=== PATIENT | female | born 1995 | race African-American/Black ===

== ENCOUNTER 2023-08-11 14:09 | Inpatient (IN) ==
--- NOTE | 2023-08-11 14:48 | ED Triage Note ---
Date of Service August 11, 2023 Provider in Triage Author: Shaina Mcleod History of Present Illness This patient was briefly evaluated while in triage. An abbreviated physical exam was performed. This patient is a 28-year-old Female who presents to the ED for evaluation of constipation. Evaluated on 07/25 for rectal bleeding. Dx with internal hemorrhoids as well as COVID+ and UTI. On Augmentin for UTI. Notes persistent fever. Has not had BM in 4 days. Reports abd pain. Notes nausea, no vomiting. Physical Exam Constitutional: alert and oriented x3. no acute distress. febrile HEENT: normocephalic, atraumatic. normal conjunctiva.PERRLA. EOM's grossly intact. Respiratory: equal chest rise. normal respiratory effort, no accessory muscle use. Cardiovascular: tachycardic MSK: moves all 4 extremities spontaneously Psych:appropriate mood and affect. Initial orders for labs and / or imaging were placed and patient was placed in the waiting area until a bed is available. Please see further documentation for the full ED course.
[2023-08-11] MEDS ORDERED: SODIUM CHLORIDE 0.9% 1,000 ML IV ONE ×3 (17:01→22:09)
[2023-08-11] MEDS ORDERED: ACETAMINOPHEN 1,000 MG/100 ML VIAL IV STA (17:01)
[2023-08-11 17:17] LABS: Basophils # (auto) 0.06 K/uL (0.00-0.20); Basophils % (auto) 0.3 %; Hematocrit (blood only) 28.7 % (37.0-47.0); Hemoglobin 8.8 g/dl (12.0-16.0); Immature Granulocytes # (auto) 0.32 K/uL (0.01-0.20); Immature Granulocytes % (auto) 1.6 %; Lymphocytes # (auto) 2.21 K/uL (1.20-3.40); Lymphocytes % (auto) 10.9 %; Mean Corpuscular Hemoglobin 21.2 pg (25.0-34.0); Mean Corpuscular Hgb Conc 30.7 g/dL (32.0-36.0); Mean Corpuscular Volume 69.2 fL (80.0-100.0); Monocytes # (auto) 2.06 K/uL (0.11-0.59); Monocytes % (auto) 10.2 %; Neutrophils # (auto) 15.62 K/uL (1.40-6.50); RDW Coefficient of Variation 17.2 % (11.5-14.5); RDW Standard Deviation 42.6 fL (36.4-46.3); Red Blood Count 4.15 M/uL (4.20-5.40); White Blood Count 20.27 K/ul (4.8-10.8)
[2023-08-11] MEDS ORDERED: ONDANSETRON INJ 2 MG/ML 2 ML VIAL IV STA (17:30)
[2023-08-11] MEDS ORDERED: ONDANSETRON INJ 2 MG/ML 2 ML VIAL ONE (17:31)
[2023-08-11 17:33] LABS: Pregnancy Test, Serum Negative (Negative)
[2023-08-11 17:36] LABS: Albumin Level 3.9 gm/dl (3.4-5.0); BUN Creatinine Ratio 10.7 (10-20); Bilirubin,Total 0.5 mg/dl (0.2-1.0); Calcium 9.1 mg/dl (8.6-10.3); Creatinine Clr Calc Pharmacy 108.4 ml/min; Est GFR (African American) 126.6 ml/min; Est GFR (Non-African American) 109.2 ml/min; Globulin 3.9 gm/dl (2.5-4.0); Potassium 3.4 mmol/L (3.5-5.1); Total Protein 7.8 gm/dl (6.0-8.3)
[2023-08-11 17:39] LABS: Hypochromasia Present; Ovalocytes 1+; Platelet Count 466 K/uL (130-400); Rouleaux 1+
[2023-08-11] MEDS ORDERED: OPTIRAY 320 500ml IV ONE (17:57)
--- NOTE | 2023-08-11 18:32 | Emergency Department Note ---
Impression & Plan Abdominal pain ADMIT ED Provider Note HPI: History obtained from patient. The patient is a 28-year-old female who presents the emergency department with a chief complaint of abdominal pain, nausea, constipation. Patient states that she was diagnosed with COVID-19 this past . Patient states she was also placed on Augmentin for UTI with improvement in her urinary symptoms. Patient states that she was having severe constipation however on my assessment here in the ED patient states she just had a bowel movement that was loose and bloody in nature. Patient states she was also diagnosed with internal hemorrhoids recently. On arrival here to the ED the patient was noted to be tachycardic at 124, she is febrile at 38.3, she is saturating well on room air. Blood pressure stable. Patient is alert and conversational on my initial assessment, she otherwise appears to be in no acute distress. ROS: - Per HPI Differential Diagnosis: Lower GI bleed, acute appendicitis, acute colitis, hemorrhagic diarrhea with infectious pathogen, COVID-19 infection, urinary tract infection/sepsis, bacterial pneumonia/sepsis, amongst other potential pathologies. *Outpatient medications and allergy history reviewed. PE: General: Alert HEENT: Normocephalic, trachea midline Eyes: Extraocular eye movement is intact, no scleral erythema Pulmonary: Clear to auscultation bilaterally, no wheezing Cardio: Tachycardic rate with regular rhythm GI: Abdomen is soft to palpation, there is moderate tenderness in the lower abdomen to palpation without guarding or rigidity : No suprapubic tenderness MSK: No evidence of trauma or malformation of the extremities, no edema Skin: No evidence of rash Neuro: Alert, no focal deficits Psychiatric: Cooperative INDEPENDENT INTERPRETATIONS: shelter monitor: (As interpreted by myself): - An order was placed for continuous cardiac monitoring - Patient was noted to be in sinus tachycardia with a rate of 115 Chest x-ray: (As interpreted by myself): No acute disease Interventions provided in ED: -IV fluid bolus, IV morphine, IV Dilaudid, IV cefepime, IV Tylenol Medical Decision Making: IV was established and lab work obtained, patient was placed on color television console monitor. Lab work shows increasing leukocytosis today to 20.27, hemoglobin is 8.8 which is reduced from 9.57 days ago, platelet count is slightly elevated at 466, CMP shows a mild hyponatremia 134, potassium is 3.4, renal function is normal, lactic acid is normal, bilirubin is normal. AST is mildly elevated at 50, ALT is normal. Lipase is normal. Procalcitonin is low at 0.40. testing is negative. Urinalysis does not show any obvious evidence of infection, 2+ ketones and 3+ blood are noted. Urine nitrite is negative and urine leukocyte esterase is 1+. Will send for culture. There is evidence of contamination. CT imaging of the abdomen pelvis was ordered from triage and repeated from 1 week ago, this does show increasing right iliac and inguinal lymphadenopathy of undetermined origin, otherwise no acute abnormalities are seen per interpreting radiologist. Patient was reassessed and had continued and worsening abdominal pain therefore was given a dose of IV Dilaudid in addition to the morphine that she received earlier. Blood cultures were drawn here in the ED. Given the patient's increasing leukocytosis, unclear origin for abdominal pain with lymphadenopathy, she was started on IV cefepime for possible infection of unknown origin. She has recently tested positive for COVID-19 as well and this might be playing a role in some of her symptoms. In addition, patient states that she had an episode of blood per rectum with a loose bowel movement while here in the ED and her hemoglobin is lower than it was 7 days ago and this may require further investigation as well. Patient is in agreement for admission, [facility] hospitalist service was consulted for admission and the patient was placed for admission in stable condition Consultants/Discussions held with other healthcare providers: -Hospitalist, Dr. Zimmerman Disposition discussion held by myself with: -Patient Diagnosis: 1. Leukocytosis, acute 2. Fever, acute 3. Abdominal pain, acute 4. Ketonuria, acute 5. 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 Beliefs That Will Affect Care: None Current Living Situation: Other Current Living Situation Comment: lives with fiance Other Information That Helps Us Care for You: No Feels Safe at Home: Yes Safety Concerns: Feels Safe At This Time Assistive Devices: None Allergies Allergies Allergy/AdvReac Type Severity Reaction Status Date / Time metoclopramide [From Reglan] Allergy Severe TONGUE Verified 08/04/23 23:34 SWELLS, RESTLESSNESS tramadol AdvReac Intermediate COLD Verified 08/04/23 23:34 SWEATS, AGITATION, BLURRED VISION Home Meds Home Medications Medication Instructions Recorded Confirmed ergocalciferol (vitamin D2) 1,250 1,250 mcg PO WK 08/04/23 08/11/23 mcg (50,000 unit) capsule (Vitamin D2) folic acid 1 mg tablet 1 mg PO DAILY 08/04/23 08/11/23 methotrexate (PF) 15 mg/0.3 mL 15 mg subcut WK 08/04/23 08/11/23 subcutaneous auto-injector Previous Rx's Medication Instructions Recorded amoxicillin 875 mg-potassium 1 tab PO BID 10 days #20 tabs 08/05/23 clavulanate 125 mg tablet Results & Data (ED) Vital Signs Vital Signs - 24 hr 08/11/23 14:44 08/11/23 19:51 08/11/23 19:51 Temperature 38.3 C H Temperature Source Temporal Artery Scan Pulse Rate 124 H 112 H Pulse Rate [Apical] Pulse Rate from SpO2 Sensor Respiratory Rate 20 Respiratory Effort / Characteristics Non-Labored Spontaneous Respiratory Depth Normal Blood Pressure 108/63 124/75 Blood Pressure [Left Arm] Blood Pressure Mean 78 88 Blood Pressure Mean [Left Arm] Pulse Oximetry 99 Oxygen Delivery Method Room Air Sepsis Recent Fever Within 48 Hours No Sepsis New/Unexplained Change in Mental Status No Sepsis Action Taken by Nursing No Action Required 08/11/23 19:52 08/11/23 19:54 08/11/23 20:00 Temperature Temperature Source Pulse Rate 113 H 108 H Pulse Rate [Apical] 113 H Pulse Rate from SpO2 Sensor 107 H 109 H Respiratory Rate 24 20 29 H Respiratory Effort / Characteristics Respiratory Depth Blood Pressure Blood Pressure [Left Arm] 124/75 Blood Pressure Mean Blood Pressure Mean [Left Arm] 91 Pulse Oximetry 95 98 97 Oxygen Delivery Method Room Air Sepsis Recent Fever Within 48 Hours Sepsis New/Unexplained Change in Mental Status Sepsis Action Taken by Nursing 08/11/23 20:15 08/11/23 20:15 08/11/23 20:30 Temperature Temperature Source Pulse Rate 116 H Pulse Rate [Apical] Pulse Rate from SpO2 Sensor 127 H Respiratory Rate 25 H Respiratory Effort / Characteristics Respiratory Depth Blood Pressure 108/61 111/68 Blood Pressure [Left Arm] Blood Pressure Mean 72 86 Blood Pressure Mean [Left Arm] Pulse Oximetry 97 Oxygen Delivery Method Sepsis Recent Fever Within 48 Hours Sepsis New/Unexplained Change in Mental Status Sepsis Action Taken by Nursing 08/11/23 20:30 08/11/23 20:45 08/11/23 21:00 Temperature Temperature Source Pulse Rate 114 H 114 H 115 H Pulse Rate [Apical] Pulse Rate from SpO2 Sensor 114 H 111 H 114 H Respiratory Rate 18 18 15 Respiratory Effort / Characteristics Respiratory Depth Blood Pressure 104/58 L 110/54 L Blood Pressure [Left Arm] Blood Pressure Mean 73 72 Blood Pressure Mean [Left Arm] Pulse Oximetry 100 92 97 Oxygen Delivery Method Sepsis Recent Fever Within 48 Hours Sepsis New/Unexplained Change in Mental Status Sepsis Action Taken by Nursing 08/11/23 21:15 08/11/23 21:30 08/11/23 21:45 Temperature Temperature Source Pulse Rate 114 H 109 H Pulse Rate [Apical] Pulse Rate from SpO2 Sensor 114 H 110 H Respiratory Rate 19 21 Respiratory Effort / Characteristics Respiratory Depth Blood Pressure 99/54 L 99/52 L 88/56 L Blood Pressure [Left Arm] Blood Pressure Mean 69 67 74 Blood Pressure Mean [Left Arm] Pulse Oximetry 96 96 Oxygen Delivery Method Sepsis Recent Fever Within 48 Hours Sepsis New/Unexplained Change in Mental Status Sepsis Action Taken by Nursing 08/11/23 21:45 08/11/23 22:00 08/11/23 22:00 Temperature Temperature Source Pulse Rate 115 H 115 H Pulse Rate [Apical] Pulse Rate from SpO2 Sensor 113 H 116 H Respiratory Rate 26 H 19 Respiratory Effort / Characteristics Respiratory Depth Blood Pressure 112/66 Blood Pressure [Left Arm] Blood Pressure Mean 77 Blood Pressure Mean [Left Arm] Pulse Oximetry 99 98 Oxygen Delivery Method Sepsis Recent Fever Within 48 Hours Sepsis New/Unexplained Change in Mental Status Sepsis Action Taken by Nursing Laboratory Data 08/11/23 16:55 08/11/23 16:55 Lab Results 08/11/23 08/11/23 Range/Units 16:55 19:45 WBC 20.27 H (4.8-10.8) K/ul RBC 4.15 L (4.20-5.40) M/uL Hgb 8.8 L (12.0-16.0) g/dl Hct 28.7 L (37.0-47.0) % MCV 69.2 L (80.0-100.0) fL MCH 21.2 L (25.0-34.0) pg MCHC 30.7 L (32.0-36.0) g/dL RDW Std Deviation 42.6 (36.4-46.3) fL RDW Coeff of Erika 17.2 H (11.5-14.5) % Plt Count 466 H (130-400) K/uL MPV 10.0 (9.4-12.4) fL Immature Gran % (Auto) 1.6 % Neut % (Auto) 77.0 % Lymph % (Auto) 10.9 % Bertie % (Auto) 10.2 % Eos % (Auto) 0.0 % Baso % (Auto) 0.3 % Neut # (Auto) 15.62 H (1.40-6.50) K/uL Lymph # (Auto) 2.21 (1.20-3.40) K/uL Bertie # (Auto) 2.06 H (0.11-0.59) K/uL Eos # (Auto) 0.00 (0.00-0.50) K/uL Baso # (Auto) 0.06 (0.00-0.20) K/uL Immature Gran # (Auto) 0.32 H (0.01-0.20) K/uL Hypochromasia Present Ovalocytes 1+ Rouleaux 1+ Sodium 134 L (136-145) mmol/L Potassium 3.4 L (3.5-5.1) mmol/L Chloride 99 (98-107) mmol/L Carbon Dioxide 22 (21-32) mmol/L Anion Gap 13 H (3-11) BUN 8 (6-23) mg/dl Creatinine 0.75 (0.6-1.2) mg/dl Est Cr Clr Drug Dosing 108.4 ml/min Est GFR ( Amer) 126.6 ml/min Est GFR (Non-Af Amer) 109.2 ml/min BUN/Creatinine Ratio 10.7 (10-20) Glucose 91 (70-99(Fasting)) mg/dl Lactate 1.3 (0.4-2.0) mmol/L Calcium 9.1 (8.6-10.3) mg/dl Total Bilirubin 0.5 (0.2-1.0) mg/dl AST 50 H (13-39) U/L ALT 32 (7-52) U/L Alkaline Phosphatase 85 (34-104) U/L Total Protein 7.8 (6.0-8.3) gm/dl Albumin 3.9 (3.4-5.0) gm/dl Globulin 3.9 (2.5-4.0) gm/dl Albumin/Globulin Ratio 1.0 (0.9-2) Lipase 27 (11-82) U/L Procalcitonin 0.40 (0-0.5) ng/ml HCG, Qual Negative (Negative) Urine Color Yellow Urine Appearance Cloudy A (Clear) Urine pH 6.5 (4.5-7.5) Ur Specific [place] > 1.045 H (1.000-1.030) Urine Protein 1+ H (Negative) Urine Glucose (UA) Negative (Negative) Urine Ketones 2+ H (Negative) Urine Blood 3+ H (Negative) Urine Nitrite Negative (Negative) Urine Bilirubin Negative (Negative) Urine Urobilinogen Negative (Negative) Ur Leukocyte Esterase 1+ H (Negative) Urine WBC (Auto) >30 H (0-5) /hpf Urine RBC (Auto) >30 H (0-4) /hpf U Hyaline Cast (Auto) 0 (0-5) /lpf U Epithel Cells (Auto) >30 H (0-5) /lpf Urine Bacteria (Auto) Negative (Negative) Urine Yeast Not Reportable Administered Medications Pantoprazole Sodium 40 mg/ (Syringe) 10 mls @ 5 mls/min IV BID KALEB Stop: 09/10/23 22:14 Last Admin: 08/11/23 22:46 Dose: 5 mls/min Documented By: SONNY Sodium Chloride (Nss) 1,000 mls @ 125 mls/hr IV .Q8H KALEB Stop: 09/10/23 23:50 Last Admin: 08/11/23 23:59 Dose: 125 mls/hr Documented By: ANNABEL Discontinued Medications Hydromorphone HCl (Hydromorphone Inj 0.5 Mg/0.5 Ml Syr) 0.5 mg IV NOW STA Stop: 08/11/23 20:38 Last Admin: 08/11/23 20:53 Dose: 0.5 mg Documented By: SONNY Sodium Chloride (Nss) 1,000 mls @ 999 mls/hr IV .Q1H1M ONE Stop: 08/11/23 18:01 Last Infusion: 08/11/23 19:20 Dose: Infused Documented By: Admin: 08/11/23 17:25 Dose: 999 mls/hr Documented By: CORRIE Acetaminophen (Ofirmev) 1,000 mg in 100 mls @ 400 mls/hr IV NOW STA Stop: 08/11/23 17:15 Last Infusion: 08/11/23 18:54 Dose: Infused Documented By: CARLOS EDUARDO Admin: 08/11/23 17:26 Dose: 400 mls/hr Documented By: CORRIE Cefepime HCl (Maxipime) 2,000 mg in 20 mls @ 5 mls/min IV NOW STA; Protocol Stop: 08/11/23 20:55 Last Admin: 08/11/23 22:50 Dose: 5 mls/min Documented By: SONNY Sodium Chloride (Nss) 1,000 mls @ 999 mls/hr IV .Q1H1M ONE Stop: 08/11/23 21:57 Last Infusion: 08/11/23 23:55 Dose: Infused Documented By: Admin: 08/11/23 22:55 Dose: 999 mls/hr Documented By: SONNY Sodium Chloride (Nss) 500 mls @ 999 mls/hr IV .Q31M ONE Stop: 08/11/23 21:38 Last Infusion: 08/11/23 23:54 Dose: Infused Documented By: Admin: 08/11/23 22:55 Dose: 999 mls/hr Documented By: SONNY Potassium Chloride (K Guillaume / Wtr) 10 meq in 100 mls @ 100 mls/hr IV ONE ONE Stop: 08/11/23 22:40 Last Infusion: 08/11/23 23:56 Dose: Infused Documented By: Admin: 08/11/23 22:55 Dose: 100 mls/hr Documented By: SONNY Sodium Chloride (Nss) 1,000 mls @ 999 mls/hr IV .Q1H1M ONE Stop: 08/11/23 23:09 Last Admin: 08/11/23 22:56 Dose: Not Given Documented By: SONNY Ioversol (Optiray 320 500ml) 85 ml IV ONCE ONE Stop: 08/11/23 17:58 Last Admin: 08/11/23 17:58 Dose: 85 ml Documented By: VANI Morphine Sulfate (Morphine Sulfate 4 Mg/Ml 1 Ml Carp\Vial) 4 mg IV NOW STA Stop: 08/11/23 19:48 Last Admin: 08/11/23 19:51 Dose: 4 mg Documented By: RONEY Ondansetron HCl (Ondansetron Inj 2 Mg/Ml 2 Ml Vial) 4 mg IV NOW STA Stop: 08/11/23 17:31 Last Admin: 08/11/23 17:33 Dose: 4 mg Documented By: CORRIE Ondansetron HCl (Ondansetron Inj 2 Mg/Ml 2 Ml Vial) Confirm Administered Dose 4 mg .ROUTE .STK-MED ONE Stop: 08/11/23 17:32 Last Admin: 08/11/23 17:33 Dose: Not Given Documented By: CORRIE Imaging Data Radiologist's Impression: Abdomen/Pelvis CT 08/11/23 14:48 CT abd pelvis IV con only CLINICAL HISTORY: rectal pain, constipation, fever TECHNIQUE: Helical axial images of the abdomen and pelvis were obtained and displayed. Automated dose lowering techniques and/or adjustment according to patient size were utilized for this exam. This exam was performed with intravenous contrast. CT DOSE: 1008.61 mGy.cm COMPARISON: Comparison is made to CT head 08/05/2023 FINDINGS: Lower chest: No acute abnormality. Liver: Unremarkable. No focal lesions are seen. Gallbladder and biliary tree: No calcified gallstones. Normal caliber wall. No intra- or extrahepatic biliary ductal dilation. Pancreas: Unremarkable, no focal lesions. Spleen: Unremarkable. Adrenals: Unremarkable. Kidneys and ureters: Unremarkable. Bladder: Unremarkable. Reproductive organs: Unremarkable. Bowel: Unremarkable. Lymph nodes Retroperitoneal: Unremarkable. Pelvic: Unremarkable. Mesenteric: Enlarged right inguinal lymph nodes measure up to 19 mm in diameter. External iliac lymph nodes on the right measure up to 9 mm. Peritoneum: Normal. Vessels: Unremarkable. Abdominal wall: Unremarkable. Bones: Unremarkable. IMPRESSION: Right external iliac and inguinal lymphadenopathy is enlarged from prior exam, possibly representing infectious process. Follow-up to resolution is recommended to exclude malignancy. Otherwise no acute abnormalities are seen. ACT 112: Negative or not required by law. Electronically signed by: Kyle Crandall M.D. 08/11/2023 6:58 PM Chest X-Ray 08/11/23 18:32 XR chest 1V portable CLINICAL HISTORY: fever TECHNIQUE: Single frontal radiograph of the chest was obtained. Comparison: Comparison is made to chest radiograph 08/04/2023 FINDINGS: No lines and tubes are seen. The cardiomediastinal silhouette is normal. The lungs are clear. No evidence of pleural effusion or pneumothorax. IMPRESSION: No acute chest disease. ACT 112: Negative or not required by law. Electronically signed by: Kyle Crandall M.D. 08/11/2023 7:25 PM Discharge Plan Visit Data Chief Complaint: GI Assessment Stated Complaint: NO BM FOR 4 DAYS, ABD PAINS ED Provider: Jackson Tinoco Discharge Problem: Abdominal pain Patient Disposition: Admitted As Inpatient Discharge Problem: Abdominal pain Qualifiers: Abdominal location: unspecified location Qualified Code(s): R10.9 - Unspecified abdominal pain
--- NOTE | 2023-08-11 19:00 | CT Scan Report ---
CT abd pelvis IV con only CLINICAL HISTORY: rectal pain, constipation, fever TECHNIQUE: Helical axial images of the abdomen and pelvis were obtained and displayed. Automated dose lowering techniques and/or adjustment according to patient size were utilized for this exam. This e xam was performed with intravenous contrast. CT DOSE: 1008.61 mGy.cm COMPARISON: Comparison is made to CT head 08/05/2023 FINDINGS: Lower chest: No acute abnormality. Liver: Unremarkable. No focal lesions are seen. Gallbladder and biliary tree: No calcified gallstones. Normal caliber wall. No intra- or extrahepatic biliary ductal dilation. Pancreas: Unremarkable, no focal lesions. Spleen: Unremarkable. Adrenals: Unremarkable. Kidneys and ureters: Unremarkable. Bladder: Unremarkable. Reproductive organs: Unremarkable. Bowel: Unremarkable. Lymph nodes Retroperitoneal: Unremarkable. Pelvic: Unremarkable. Mesenteric: Enlarged right inguinal lymph nodes measure up to 19 mm in diameter. External iliac lymph nodes on the right measure up to 9 mm. Peritoneum: Normal. Vessels: Unremarkable. Abdominal wall: Unremarkable. Bones: Unremarkable. IMPRESSION: Right external iliac and inguinal lymphadenopathy is enlarged from prior exam, possibly representing infectious process. Follow-up to resolution is recommended to exclude malignancy. Otherwise no acute abnormalities are seen. ACT 112: Negative or not required by law. Electronically signed by: Kyle Crandall M.D. 08/11/2023 6:58 PM
--- NOTE | 2023-08-11 19:27 | XRay Report ---
XR chest 1V portable CLINICAL HISTORY: fever TECHNIQUE: Single frontal radiograph of the chest was obtained. Comparison: Comparison is made to chest radiograph 08/04/2023 FINDINGS: No lines and tubes are seen. The cardiomediastinal silhouette is normal. The lungs are clear. No evid ence of pleural effusion or pneumothorax. IMPRESSION: No acute chest disease. ACT 112: Negative or not required by law. Electronically signed by: Kyle Crandall M.D. 08/11/2023 7:25 PM
[2023-08-11] MEDS ORDERED: MoRPHine SULFATE 4 MG/ML 1 ML CARP\\VIAL IV STA (19:47)
[2023-08-11] MEDS ORDERED: HYDROmorphone INJ 0.5 MG/0.5 ML SYR IV STA (20:37)
[2023-08-11 20:46] LABS: Appearance Urine Cloudy (Clear); Bacteria Urine Automated Negative (Negative); Bilirubin Urine Negative (Negative); Blood Urine 3+ (Negative); Color Urine Yellow; Epithelial Cell Urine Auto >30 /lpf (0-5); Glucose Urine UA Negative (Negative); Ketones Urine 2+ (Negative); Leukocyte Esterase Urine 1+ (Negative); Nitrite Urine Negative (Negative); Protein Urine 1+ (Negative); RBC Urine Automated >30 /hpf (0-4); Specific Gravity Urine > 1.045 (1.000-1.030); Urobilinogen Urine Negative (Negative); WBC Urine Automated >30 /hpf (0-5); pH Urine 6.5 (4.5-7.5)
[2023-08-11] MEDS ORDERED: CEFEPIME 2,000 MG/20 ML VIAL IV STA (20:52)
[2023-08-11 21:04] LABS: Cast Urine Automated 0 /lpf (0-5)
[2023-08-11] MEDS ORDERED: SODIUM CHLORIDE 0.9% 500 ML IV ONE (21:08)
[2023-08-11] MEDS ORDERED: POTASSIUM CHLORIDE / WTR 10 MEQ/100 ML PLCT IV ONE (21:41)
--- NOTE | 2023-08-11 22:16 | History & Physical Report ---
Date of Service August 11, 2023 Assessment & Plan (1) Bright red rectal bleeding: Plan: 28 yo female with PMHx of kira's granulomatosis and hemorrhoids presents with rectal pain. #Fever #SIRS -1 wk persistent fever of unknown etiology despite being on augmentin. Met SIRS criteria on admission. WBC 20. Lactate wnl. ?Urosepsis. She has been dealing with UTI over the past month. CXR unremarkable. -UA appears infectious however without bacteria. Urine cx pending. -blood cx pending -stool studies pending -received dose of cefepime in ED. Will switch to zosyn. -IVF, tylenol, anti-emetics #Lower GI Bleed -2 episodes of bright red bloody diarrhea with pain in the last week. H/o hemorrhoids. -Hgb: 8.8 on admission - type and screen ordered -CT A/P: no obvious sites of bleeding -NPO, IVF, Protonix BID -GI consulted - may require colonoscopy #Constipation -fecal retention seen on CT per my read. Likely 2/2 hemorrhoids and could be adding to pain. -Likely will not tolerate [place] and is NPO. Will continue with IVF for now. #Lymphadenopathy -CT A/P: progressively enlarging R external iliac and inguinal lymphadenopathy - more likely reactive to underlying process -will need follow up imaging for resolution #Kira's Granulomatosis -chronically on methotrexate -unclear if symptoms above due to flare. Consider steroids. #COVID -tested positive 08/04/2023 -isolation precautions DVT ppx: SCDs, ambulation FEN/GI: NPO, IVF Code Status: full Dispo: PCU (2) Iliac lymphadenopathy: (3) Inguinal lymphadenopathy: (4) COVID-19: (5) UTI (urinary tract infection): (6) Fever: History of Present Illness Chief Complaint: rectal pain Primary Care Provider: [facility] 28 yo female with PMHx of kira's granulomatosis and hemorrhoids presents with rectal pain. 1 month ago patient presented to the ED with suspected UTI and was discharged on course of Omnicef. She states the antibiotic never fully resolved her symptoms and she returned to the ED 1 week ago with ongoing urinary symptoms and rectal pain. Rectal pain was presumed due to h/o hemorrhoids. She also incidentally tested positive for COVID. She was discharged on Augmentin to cover for possible ongoing UTI and/or other infectious etiology. Since then she has had ongoing fevers, chills, fatigue, nausea, suprapubic pain, rectal pain bright red bloody diarrhea x2. Denies dysuria or urinary frequency. She is in a monogamous relationship. Has never had colonoscopy performed. Allergies Allergy/AdvReac Type Severity Reaction Status Date / Time metoclopramide [From Reglan] Allergy Severe TONGUE Verified 08/04/23 23:34 SWELLS, RESTLESSNESS tramadol AdvReac Intermediate COLD Verified 08/04/23 23:34 SWEATS, AGITATION, BLURRED VISION Home Medications Medication Instructions Recorded Confirmed Type ergocalciferol (vitamin D2) 1,250 1,250 mcg PO WK 08/04/23 08/11/23 History mcg (50,000 unit) capsule (Vitamin D2) folic acid 1 mg tablet 1 mg PO DAILY 08/04/23 08/11/23 History methotrexate (PF) 15 mg/0.3 mL 15 mg subcut WK 08/04/23 08/11/23 History subcutaneous auto-injector amoxicillin 875 mg-potassium 1 tab PO BID 10 days #20 tabs 08/05/23 08/11/23 Rx clavulanate 125 mg tablet Past Med/Surg History Social History Smoking Status: Never smoker Second Hand Exposure: No; Do You Dip or Chew Tobacco: No; Tobacco Cessation Education Requested by Patient: No Hx Alcohol Use: Yes Alcohol type: hard liquor Hx Substance Use: No Preferred Language: Lithuanian Communication Ability: Effective [employer] Required: No Beliefs That Will Affect Care: None Current Living Situation: Other Current Living Situation Comment: lives with fiance Other Information That Helps Us Care for You: No Feels Safe at Home: Yes Safety Concerns: Feels Safe At This Time Assistive Devices: None Review of Systems Review of Systems: All systems reviewed & are unremarkable except as noted in HPI & below Physical Exam Physical Exam: Constitutional: moderate acute distress, pleasant. AOx3. Vitals as above. HEENT: No scleral injection or discharge.Dry mucous membranes. Neck: Supple without lymphadenopathy or thyromegaly. Trachea midline. Lungs: Clear to auscultation bilaterally with good effort. No wheezes/rales/rhonchi. Cardiac: Tachycardic. Regular rhythm. No murmurs. No lower extremity edema. 2+ distal peripheral pulses. Abdomen: Bowel sounds present. Soft and nondistended.Tender in lower quadrants R>L. No guarding. No hepatosplenomegaly. MSK: No cyanosis or clubbing. Skin: No rashes, warm, dry. Neurologic: no focal deficits Rectal: upon inspection +hemorrhoids without active bleeding, not thrombosed Results & Data Results & Data Vital Signs (Past 12 Hours) Vital Signs Temp Pulse Pulse Resp BP BP Pulse Ox 08/11/23 21:00 115 H 15 110/54 L 97 08/11/23 20:45 114 H 18 104/58 L 92 08/11/23 20:30 114 H 18 100 08/11/23 20:30 111/68 08/11/23 20:15 108/61 08/11/23 20:15 116 H 25 H 97 08/11/23 20:00 108 H 29 H 97 08/11/23 19:54 113 H 20 124/75 98 08/11/23 19:52 113 H 24 95 08/11/23 19:51 124/75 08/11/23 19:51 112 H 08/11/23 14:44 38.3 C H 124 H 20 108/63 99 O2 Del Method 08/11/23 21:00 08/11/23 20:45 08/11/23 20:30 08/11/23 20:30 08/11/23 20:15 08/11/23 20:15 08/11/23 20:00 08/11/23 19:54 Room Air 08/11/23 19:52 08/11/23 19:51 08/11/23 19:51 08/11/23 14:44 Room Air Laboratory Results Laboratory Results WBC 20.27 K/ul (4.8-10.8) H 08/11/23 16:55 RBC 4.15 M/uL (4.20-5.40) L 08/11/23 16:55 Hgb 8.8 g/dl (12.0-16.0) L 08/11/23 16:55 Hct 28.7 % (37.0-47.0) L 08/11/23 16:55 MCV 69.2 fL (80.0-100.0) L 08/11/23 16:55 MCH 21.2 pg (25.0-34.0) L 08/11/23 16:55 MCHC 30.7 g/dL (32.0-36.0) L 08/11/23 16:55 RDW Std Deviation 42.6 fL (36.4-46.3) 08/11/23 16:55 RDW Coeff of Erika 17.2 % (11.5-14.5) H 08/11/23 16:55 Plt Count 466 K/uL (130-400) H 08/11/23 16:55 MPV 10.0 fL (9.4-12.4) 08/11/23 16:55 Immature Gran % (Auto) 1.6 % 08/11/23 16:55 Neut % (Auto) 77.0 % 08/11/23 16:55 Lymph % (Auto) 10.9 % 08/11/23 16:55 [place]asper % (Auto) 10.2 % 08/11/23 16:55 Eos % (Auto) 0.0 % 08/11/23 16:55 Baso % (Auto) 0.3 % 08/11/23 16:55 Neut # (Auto) 15.62 K/uL (1.40-6.50) H 08/11/23 16:55 Lymph # (Auto) 2.21 K/uL (1.20-3.40) 08/11/23 16:55 [place]asper # (Auto) 2.06 K/uL (0.11-0.59) H 08/11/23 16:55 Eos # (Auto) 0.00 K/uL (0.00-0.50) 08/11/23 16:55 Baso # (Auto) 0.06 K/uL (0.00-0.20) 08/11/23 16:55 Immature Gran # (Auto) 0.32 K/uL (0.01-0.20) H 08/11/23 16:55 Hypochromasia Present 08/11/23 16:55 Ovalocytes 1+ 08/11/23 16:55 Rouleaux 1+ 08/11/23 16:55 Sodium 134 mmol/L (136-145) L 08/11/23 16:55 Potassium 3.4 mmol/L (3.5-5.1) L 08/11/23 16:55 Chloride 99 mmol/L (98-107) 08/11/23 16:55 Carbon Dioxide 22 mmol/L (21-32) 08/11/23 16:55 Anion Gap 13 (3-11) H 08/11/23 16:55 BUN 8 mg/dl (6-23) 08/11/23 16:55 Creatinine 0.75 mg/dl (0.6-1.2) 08/11/23 16:55 Est Cr Clr Drug Dosing 108.4 ml/min 08/11/23 16:55 Est GFR ( Amer) 126.6 ml/min 08/11/23 16:55 Est GFR (Non-Af Amer) 109.2 ml/min 08/11/23 16:55 BUN/Creatinine Ratio 10.7 (10-20) 08/11/23 16:55 Glucose 91 mg/dl (70-99(Fasting)) 08/11/23 16:55 Lactate 1.3 mmol/L (0.4-2.0) 08/11/23 16:55 Calcium 9.1 mg/dl (8.6-10.3) 08/11/23 16:55 Total Bilirubin 0.5 mg/dl (0.2-1.0) 08/11/23 16:55 AST 50 U/L (13-39) H 08/11/23 16:55 ALT 32 U/L (7-52) 08/11/23 16:55 Alkaline Phosphatase 85 U/L (34-104) 08/11/23 16:55 Total Protein 7.8 gm/dl (6.0-8.3) 08/11/23 16:55 Albumin 3.9 gm/dl (3.4-5.0) 08/11/23 16:55 Globulin 3.9 gm/dl (2.5-4.0) 08/11/23 16:55 Albumin/Globulin Ratio 1.0 (0.9-2) 08/11/23 16:55 Lipase 27 U/L (11-82) 08/11/23 16:55 Procalcitonin 0.40 ng/ml (0-0.5) 08/11/23 16:55 HCG, Qual Negative (Negative) 08/11/23 16:55 Urine Color Yellow 08/11/23 19:45 Urine Appearance Cloudy (Clear) A 08/11/23 19:45 Urine pH 6.5 (4.5-7.5) 08/11/23 19:45 Ur Specific [place] > 1.045 (1.000-1.030) H 08/11/23 19:45 Urine Protein 1+ (Negative) H 08/11/23 19:45 Urine Glucose (UA) Negative (Negative) 08/11/23 19:45 Urine Ketones 2+ (Negative) H 08/11/23 19:45 Urine Blood 3+ (Negative) H 08/11/23 19:45 Urine Nitrite Negative (Negative) 08/11/23 19:45 Urine Bilirubin Negative (Negative) 08/11/23 19:45 Urine Urobilinogen Negative (Negative) 08/11/23 19:45 Ur Leukocyte Esterase 1+ (Negative) H 08/11/23 19:45 Urine WBC (Auto) >30 /hpf (0-5) H 08/11/23 19:45 Urine RBC (Auto) >30 /hpf (0-4) H 08/11/23 19:45 U Hyaline Cast (Auto) 0 /lpf (0-5) 08/11/23 19:45 U Epithel Cells (Auto) >30 /lpf (0-5) H 08/11/23 19:45 Urine Bacteria (Auto) Negative (Negative) 08/11/23 19:45 Urine Yeast Not Reportable 08/11/23 19:45 Impressions Abdomen/Pelvis CT 08/11/23 14:48 CT abd pelvis IV con only CLINICAL HISTORY: rectal pain, constipation, fever TECHNIQUE: Helical axial images of the abdomen and pelvis were obtained and displayed. Automated dose lowering techniques and/or adjustment according to patient size were utilized for this exam. This exam was performed with intravenous contrast. CT DOSE: 1008.61 mGy.cm COMPARISON: Comparison is made to CT head 08/05/2023 FINDINGS: Lower chest: No acute abnormality. Liver: Unremarkable. No focal lesions are seen. Gallbladder and biliary tree: No calcified gallstones. Normal caliber wall. No intra- or extrahepatic biliary ductal dilation. Pancreas: Unremarkable, no focal lesions. Spleen: Unremarkable. Adrenals: Unremarkable. Kidneys and ureters: Unremarkable. Bladder: Unremarkable. Reproductive organs: Unremarkable. Bowel: Unremarkable. Lymph nodes Retroperitoneal: Unremarkable. Pelvic: Unremarkable. Mesenteric: Enlarged right inguinal lymph nodes measure up to 19 mm in diameter. External iliac lymph nodes on the right measure up to 9 mm. Peritoneum: Normal. Vessels: Unremarkable. Abdominal wall: Unremarkable. Bones: Unremarkable. IMPRESSION: Right external iliac and inguinal lymphadenopathy is enlarged from prior exam, possibly representing infectious process. Follow-up to resolution is recommended to exclude malignancy. Otherwise no acute abnormalities are seen. ACT 112: Negative or not required by law. Electronically signed by: Kyle Crandall M.D. 08/11/2023 6:58 PM Chest X-Ray 08/11/23 18:32 XR chest 1V portable CLINICAL HISTORY: fever TECHNIQUE: Single frontal radiograph of the chest was obtained. Comparison: Comparison is made to chest radiograph 08/04/2023 FINDINGS: No lines and tubes are seen. The cardiomediastinal silhouette is normal. The lungs are clear. No evidence of pleural effusion or pneumothorax. IMPRESSION: No acute chest disease. ACT 112: Negative or not required by law. Electronically signed by: Kyle Crandall M.D. 08/11/2023 7:25 PM Code Status & VTE Plan VTE Prophylaxis Plan VTE Prophylaxis will be ordered: Yes Supervising Physician Co-Signing Physician Notes Attending addendum: I have physically seen this patient, have supervised the medical residents activities, and agree with the H&P unless as otherwise noted. Assessment and Plan: Kira's granulomatosis/granulomatosis with polyangiitis- Immunosuppressed on methotrexate 15 mg subcu weekly Has developed fever/SIRS Given cefepime in the ED Admit on Zosyn 4.5 g IV every 8 hours Follow blood cultures, urine cultures and stool studies Lower GI bleed- Patient reports 2 episodes of bright red bloody painful diarrhea last week History of hemorrhoids noted Hemoglobin 8.8 on admission, with type and screen ordered and pending CT scan abdomen and pelvis with no acute issues N.p.o. Pantoprazole 40 mg IV twice daily IV fluids as noted Consult to gastroenterology Right external iliac and inguinal lymphadenopathy- Enlarged compared to previous She did have an E. coli UTI on 07/15/2023, for which she finished 7-day course of Augmentin Follow urine culture and sensitivity No suggestion of lower extremity infectious issue Remaining orders and notations as noted Resident Activity Tracking Resident Involvement: Resident Care Provided Care Provided: Adult Hospital Medicine (5) UTI (urinary tract infection) Hematuria presence: without hematuria Urinary tract infection type: acute cystitis Qualified Code(s): N30.00 - Acute cystitis without hematuria (6) Fever Encounter type: initial encounter
[2023-08-11] MEDS: PANTOprazole 40 MG in SYRINGE 0 ML IV SCH (22:46)
[2023-08-11] MEDS ORDERED: PIPERACILLIN/TAZOBACTAM 4.5 GM/100 ML BAG IV ONE (23:45)
[2023-08-11] MEDS: SODIUM CHLORIDE 0.9% 1,000 ML IV SCH (23:59)
[2023-08-12] MEDS: ACETAMINOPHEN 1,000 MG/100 ML VIAL IV PRN ×3 (01:56→20:07)
[2023-08-12] MEDS ORDERED: SODIUM CHLORIDE 0.9% 500 ML IV ONE (02:05)
[2023-08-12] MEDS ORDERED: HYDROmorphone INJ 0.5 MG/0.5 ML SYR IV STA (02:05)
[2023-08-12] MEDS: ONDANSETRON INJ 2 MG/ML 2 ML VIAL IV PRN ×3 (02:23→15:46)
[2023-08-12] MEDS ORDERED: KETOROLAC TROMETHAMINE 15 MG/ML VIAL IV ONE ×2 (02:32→08:20)
[2023-08-12 03:34] LABS: Adenovirus F 40/41 PCR Not Detected (NotDetected); Astrovirus PCR Not Detected (NotDetected); Campylobacter PCR Not Detected (NotDetected); Cryptosporidium PCR Not Detected (NotDetected); Cyclospora cayetanensis PCR Not Detected (NotDetected); Entamoeba histolytica PCR Not Detected (NotDetected); Enteroaggregative E.coli(EAEC) Not Detected (NotDetected); Enteropathogenic E.coli (EPEC) Not Detected (NotDetected); Enterotoxigenic E.coli (ETEC) Not Detected (NotDetected); Giardia lamblia PCR Not Detected (NotDetected); Norovirus GI/GII PCR Not Detected (NotDetected); Plesiomonas shigelloides PCR Not Detected (NotDetected); Rotavirus A PCR Not Detected (NotDetected); Salmonella PCR Not Detected (NotDetected); Sapovirus PCR Not Detected (NotDetected); Shiga-like Toxin E.coli (STEC) Not Detected (NotDetected); Shigella/Enteroinvasive E.coli Not Detected (NotDetected); Vibrio cholerae PCR Not Detected (NotDetected); Vibrio species PCR Not Detected (NotDetected); Yersinia enterocolitica PCR Not Detected (NotDetected)
[2023-08-12 03:46] LABS: Cdiff Toxin B Gene (2yr or >) Positive Cdiff Gene (Neg)
[2023-08-12 03:52] LABS: Cdiff Antigen Positive; Cdiff Toxin A+B Positive Cdiff Toxin (Negative)
--- NOTE | 2023-08-12 04:48 | Communication Note ---
Date of Service: August 12, 2023 Pt's c diff testing came back positive (gene and toxin). Oral vancomycin treated initiated with 125mg q6hr. Zosyn discontinued. Contact precautions ordered.
[2023-08-12] MEDS ORDERED: PIPERACILLIN/TAZOBACTAM 4.5 GM in DEXTROSE 5% MINI-B 100 ML IV SCH (06:00)
[2023-08-12] MEDS: VANCOMYCIN HCL 250 MG/5 ML SOLN PO SCH ×3 (06:16→18:29)
[2023-08-12] MEDS: CHERRY SYRUP 5 ML UDP PO SCH ×3 (06:16→18:29)
[2023-08-12 07:22] LABS: Calcium 8.2 mg/dl (8.6-10.3); Magnesium 1.8 mg/dl (1.7-2.4)
[2023-08-12 07:27] LABS: BUN Creatinine Ratio 8.2 (10-20); Creatinine Clr Calc Pharmacy 113.4 ml/min; Est GFR (African American) 130.8 ml/min; Est GFR (Non-African American) 112.9 ml/min
[2023-08-12 07:34] LABS: Hematocrit (blood only) 26.6 % (37.0-47.0); Hemoglobin 8.1 g/dl (12.0-16.0); Mean Corpuscular Hemoglobin 21.3 pg (25.0-34.0); Mean Corpuscular Hgb Conc 30.5 g/dL (32.0-36.0); Mean Platelet Volume 11.7 fL (9.4-12.4); Platelet Count 342 K/uL (130-400); RDW Coefficient of Variation 17.9 % (11.5-14.5); RDW Standard Deviation 45.1 fL (36.4-46.3)
[2023-08-12 07:49] LABS: White Blood Count 31.15 K/ul (4.8-10.8)
[2023-08-12 07:51] LABS: Basophils # (auto) 0.07 K/uL (0.00-0.20); Basophils % (auto) 0.2 %; Dohle Bodies 1+; Hypochromasia Present; Immature Granulocytes # (auto) 0.33 K/uL (0.01-0.20); Immature Granulocytes % (auto) 1.1 %; Lymphocytes # (auto) 1.56 K/uL (1.20-3.40); Microcytosis Present; Monocytes # (auto) 2.87 K/uL (0.11-0.59); Monocytes % (auto) 9.2 %; Neutrophils # (auto) 26.32 K/uL (1.40-6.50); Neutrophils % (auto) 84.5 %; Polychromasia 1+; Tear Drop Cells 1+
[2023-08-12] MEDS ORDERED: KETOROLAC TROMETHAMINE 15 MG/ML VIAL ONE (08:27)
[2023-08-12] MEDS: SODIUM CHLORIDE 0.9% 1,000 ML IV SCH ×2 (08:44→17:34)
--- NOTE | 2023-08-12 09:56 | Communication Note ---
Date of Service: August 12, 2023 Patient is a 28 year old female with a past medical history of corinna's granulomatosis who GI was asked to see for GI bleeding. One month ago the patien lele presented to the ED with suspected UTI and was discharged with a course of Omnicef. Reportedly, the antibiotic never fully resolved her symptoms and she returned to the ED 1 week ago with ongoing urinary symptoms and rectal pain. Rectal pain was presumed to be hemorrhoidal in nature. She also incidentally tested positive for COVID. At that time she was discharged on Augmentin to cover for possible ongoing UTI or other etiology. Since then she has had continued fevers, chills, fatigue, nausea, suprapubic pain, with rectal pain and bright red bloody diarrhea x2. Since admission she has tested positive for C diff that likely has arisen from recent antibiotic use - she has since been started on vanco. She had CT suggestive of lymphadenopathy but bowel was otherwise unremarkable. I had discussed this case with Dr. Palacios who advised on plan. Suspect her symptoms are compounded from covid and c diff infection. - Recommend continuation of vancomycin 125mg QID for at least 14 days. - would also recommend an outpatient colonoscopy for further evaluation once her c diff has resolved.
--- NOTE | 2023-08-12 11:26 | Hospitalist Progress Note ---
Date of Service August 12, 2023 Assessment & Plan (1) Bright red rectal bleeding: Plan: 28 yo female with PMHx of corinna's granulomatosis and hemorrhoids presents with rectal pain. Clostridium difficile infection -SIRS positive on admission with febrile illness and leukocytosis -BCx pending -GI PCR negative except for C difficile -Received cefepime + Zosyn in ER, discontinued after positive test and now on oral vancomycin -IVF, Tylenol and Toradol PRN pain, anti-emetics Acute hematochezia -2 episodes of bright red bloody diarrhea with pain in the last week, known h/o hemorrhoids. -Hgb: 8.8 on admission now to 8.2 -CT A/P: no obvious sites of bleeding -NPO, IVF, Protonix BID -GI consulted - may require colonoscopy -We will recheck CBC in afternoon Leukocytosis -Marked leukocytosis increase from 20 to 31 today -Does appear to have leftward shift with neutrophils -Likely due to C difficile infection though this may also be secondary to COVID -Repeat CBC in afternoon -Continue oral vancomycin as above Urinary tract infection -Has had ongoing UTI over past month though symptoms have now resolved -UA on admission appearing grossly infected, culture pending -Deferring additional abx for now Constipation -Occurring leading up to admission, now resolved -Continue IVF, supportive care -Holding further laxatives/stool softeners with active C difficile diarrhea Abdominal lymphadenopathy -CT A/P: progressively enlarging R external iliac and inguinal lymphadenopathy - more likely reactive to underlying process -Repeat CT in 3-6 months as outpatient Corinna's Granulomatosis -Chronically on methotrexate -Likely not in acute flare COVID -Tested positive 08/04/2023 -Isolation precautions -Deferring further management given stable respiratory status DVT ppx: SCDs, ambulation FEN/GI: NPO, IVF Code Status: full Dispo: PCU (2) Iliac lymphadenopathy: (3) Inguinal lymphadenopathy: (4) COVID-19: (5) UTI (urinary tract infection): (6) Fever: Admission and Anticipated Discharge Date Admission Date: August 11, 2023 Supervising Physician Co-Signing Physician Notes ATTESTATION I also saw the patient and confirmed marrero portions of the history and exam. I agree with the impression and plan in the resident documentation, and as summarized below. Upon our late morning exam, the patient was feeling little bit better. She was semireclined in bed; fianc at bedside. EXAM 114/74, 92, 16, 36.4, high percent on room air Pleasant alert. No acute distress appreciated. Heart regular rate and rhythm. Lungs clear with nonlabored respirations Abdomen with tenderness, lower quadrants, no rebound or guarding DATA Labs White blood cell count 23.63, hemoglobin 8.3, platelet count 371 Sodium 138, potassium 4.0, BUN 6, creatinine 0.73 Imaging Chest x-ray showed no acute disease CT scan abdomen pelvis on 08/11/2023 shows right external iliac and inguinal lymphadenopathy. Micro C. difficile gene/toxin positive COVID-positive Urine culture collected 08/11/2023 shows pinpoint pulmonary growth Blood cultures collected 08/11/2023 are pending IMPRESSION & PLAN C. difficile infection COVID 19 infection History of granulomatosis with polyangiitis, maintained on methotrexate Oral vancomycin for the C. difficile infection GI consult appreciated Really seems to be minimally symptomatic in terms of COVID-19; she tells me today that she would not thought she had COVID; it is really the GI symptoms which brought her to the hospital. Certainly it may be compounding her symptoms, could be partially responsible for her leukocytosis. Was given dose of cefepime in the emergency department; it has not been resumed given the C. difficile infection Blood cultures are pending; will follow to completion Methotrexate on hold for now given active infection I discussed precautions with the patient's fianc to limit spread of home Additional per resident documentation Subjective Acute events overnight- one episode of watery diarrhea. Pt examined at bedside. Reported abdominal cramping and nausea, no new complaints. Examined a few hours later during rounds after receiving Toradol, stated she felt much better. Review of Systems Review of Systems: Per HPI/Subjective Physical Exam Physical Exam: Constitutional: no acute distress, pleasant HEENT: No scleral injection or discharge.Mildly dry mucous membranes. Neck: Supple without lymphadenopathy or thyromegaly. Trachea midline. Lungs: Clear to auscultation bilaterally with good effort. No wheezes/rales/rhonchi. Cardiac: Tachycardic. Regular rhythm. No murmurs. No lower extremity edema. 2+ distal peripheral pulses. Abdomen: Bowel sounds present. Soft and nondistended.Mildly tender in lower quadrants, greatest in center. No guarding. No hepatosplenomegaly. MSK: No cyanosis or clubbing. Skin: No rashes, warm, dry Results & Data Results & Data Vital Signs (Past 12 Hours) Vital Signs Temp Pulse Resp BP Pulse Ox O2 Del Method 08/12/23 08:07 36.6 C 95 H 18 107/72 98 Room Air 08/12/23 02:51 37.4 C 99 H 92/53 L 08/12/23 02:04 38.8 C H 112 H 18 95/61 L 98 Room Air 08/12/23 00:00 39.2 C H 121 H 18 104/61 99 Room Air Resident Activity Tracking Resident Involvement: Resident Care Provided Care Provided: Adult Hospital Medicine (5) UTI (urinary tract infection) Hematuria presence: without hematuria Urinary tract infection type: acute cystitis Qualified Code(s): N30.00 - Acute cystitis without hematuria (6) Fever Encounter type: initial encounter
[2023-08-12] MEDS: PANTOprazole 40 MG in SYRINGE 0 ML IV SCH ×2 (11:31→21:43)
[2023-08-12 13:24] LABS: Chlam trach RNA(Genit,Ureth,Ur Not Detected (NotDetected); GC(Neis gon)RNA(Genit,Ureth,Ur Not Detected (NotDetected)
[2023-08-12 15:32] LABS: Hematocrit (blood only) 27.3 % (37.0-47.0); Hemoglobin 8.3 g/dl (12.0-16.0); Mean Corpuscular Hemoglobin 21.2 pg (25.0-34.0); Mean Corpuscular Hgb Conc 30.4 g/dL (32.0-36.0); Mean Corpuscular Volume 69.8 fL (80.0-100.0); RDW Coefficient of Variation 17.9 % (11.5-14.5); RDW Standard Deviation 44.7 fL (36.4-46.3); Red Blood Count 3.91 M/uL (4.20-5.40); White Blood Count 23.63 K/ul (4.8-10.8)
[2023-08-12 15:51] LABS: Basophils # (auto) 0.05 K/uL (0.00-0.20); Basophils % (auto) 0.2 %; Eosinophils # (auto) 0.06 K/uL (0.00-0.50); Eosinophils % (auto) 0.3 %; Immature Granulocytes # (auto) 0.16 K/uL (0.01-0.20); Immature Granulocytes % (auto) 0.7 %; Lymphocytes # (auto) 1.75 K/uL (1.20-3.40); Lymphocytes % (auto) 7.4 %; Mean Platelet Volume 10.6 fL (9.4-12.4); Microcytosis Present; Monocytes # (auto) 2.13 K/uL (0.11-0.59); Neutrophils # (auto) 19.48 K/uL (1.40-6.50); Neutrophils % (auto) 82.4 %; Platelet Count 371 K/uL (130-400); Poikilocytosis Present; Polychromasia 1+
[2023-08-12] MEDS: KETOROLAC TROMETHAMINE 15 MG/ML VIAL IV PRN (17:34)
--- NOTE | 2023-08-12 19:30 | Billing Data ---
Date of Service August 12, 2023 Coding Level of Care Code 85576 INT INP/OBS CARE
[2023-08-13] MEDS: CHERRY SYRUP 5 ML UDP PO SCH ×4 (00:50→19:41)
[2023-08-13] MEDS: SODIUM CHLORIDE 0.9% 1,000 ML IV SCH ×3 (00:50→19:42)
[2023-08-13] MEDS: VANCOMYCIN HCL 250 MG/5 ML SOLN PO SCH ×4 (00:50→18:00)
[2023-08-13] MEDS: ONDANSETRON INJ 2 MG/ML 2 ML VIAL IV PRN ×3 (01:03→15:04)
[2023-08-13] MEDS: KETOROLAC TROMETHAMINE 15 MG/ML VIAL IV PRN ×4 (01:04→15:04)
[2023-08-13] MEDS: ACETAMINOPHEN 1,000 MG/100 ML VIAL IV PRN ×2 (06:19→18:40)
[2023-08-13 07:33] LABS: Basophils # (auto) 0.05 K/uL (0.00-0.20); Basophils % (auto) 0.2 %; Eosinophils # (auto) 0.19 K/uL (0.00-0.50); Eosinophils % (auto) 0.8 %; Hematocrit (blood only) 25.8 % (37.0-47.0); Hemoglobin 7.7 g/dl (12.0-16.0); Immature Granulocytes # (auto) 0.42 K/uL (0.01-0.20); Immature Granulocytes % (auto) 1.7 %; Lymphocytes # (auto) 2.09 K/uL (1.20-3.40); Lymphocytes % (auto) 8.6 %; Mean Corpuscular Hemoglobin 21.2 pg (25.0-34.0); Mean Corpuscular Hgb Conc 29.8 g/dL (32.0-36.0); Mean Corpuscular Volume 70.9 fL (80.0-100.0); Mean Platelet Volume 10.1 fL (9.4-12.4); Monocytes # (auto) 1.75 K/uL (0.11-0.59); Monocytes % (auto) 7.2 %; Neutrophils # (auto) 19.89 K/uL (1.40-6.50); Neutrophils % (auto) 81.5 %; Platelet Count 394 K/uL (130-400); RDW Coefficient of Variation 17.9 % (11.5-14.5); Red Blood Count 3.64 M/uL (4.20-5.40); White Blood Count 24.39 K/ul (4.8-10.8)
[2023-08-13 07:58] LABS: Microcytosis Present; Poikilocytosis Present; Polychromasia 2+
[2023-08-13 08:16] LABS: Albumin Globulin Ratio 1.1 (0.9-2); Albumin Level 3.1 gm/dl (3.4-5.0); BUN Creatinine Ratio 9.4 (10-20); Bilirubin,Total 0.3 mg/dl (0.2-1.0); Calcium 8.5 mg/dl (8.6-10.3); Creatinine Clr Calc Pharmacy 131.3 ml/min; Est GFR (African American) 141.7 ml/min; Est GFR (Non-African American) 122.3 ml/min; Globulin 2.8 gm/dl (2.5-4.0); Potassium 3.7 mmol/L (3.5-5.1); Total Protein 5.9 gm/dl (6.0-8.3)
[2023-08-13] MEDS: PANTOprazole 40 MG in SYRINGE 0 ML IV SCH ×2 (09:09→21:12)
--- NOTE | 2023-08-13 10:40 | Hospitalist Progress Note ---
Date of Service August 13, 2023 Assessment & Plan (1) Bright red rectal bleeding: Plan: 28 yo female with PMHx of corinna's granulomatosis and hemorrhoids presents with rectal pain. #Clostridium difficile infection -SIRS positive on admission with febrile illness and leukocytosis -BCx NGTD -GI PCR negative except for C difficile -Received cefepime + Zosyn in ER, discontinued after positive test and now on oral vancomycin -IVF, Tylenol and Toradol PRN pain, anti-emetics #Acute hematochezia -2 episodes of bright red bloody diarrhea with pain in the last week, known h/o hemorrhoids. -Hgb: 8.8 on admission now to 7.7. Monitor closely, asymptomatic from anemia standpoint -CT A/P: no obvious sites of bleeding -IVF, Protonix BID -GI consulted -treat C. diff infection -outpatient colonoscopy once infection resolved #Leukocytosis -Marked leukocytosis, stable -Likely due to C difficile infection though this may also be secondary to COVID #Urinary tract infection -Has had ongoing UTI over past month though symptoms have now resolved -UA on admission appearing grossly infected, culture pending -Deferring additional abx for now #Constipation -Continue IVF, supportive care -Holding further laxatives/stool softeners with active C difficile diarrhea #Abdominal lymphadenopathy -CT A/P: progressively enlarging R external iliac and inguinal lymphadenopathy - more likely reactive to underlying process -Repeat CT in 3-6 months as outpatient #Corinna's Granulomatosis -Chronically on methotrexate -Likely not in acute flare #COVID -Tested positive 08/04/2023 -Isolation precautions -Deferring further management given stable respiratory status DVT ppx: SCDs, ambulation FEN/GI: regular Code Status: full Dispo: downgrade to [place] (2) Iliac lymphadenopathy: (3) Inguinal lymphadenopathy: (4) COVID-19: (5) UTI (urinary tract infection): (6) Fever: Admission and Anticipated Discharge Date Admission Date: August 11, 2023 Supervising Physician Co-Signing Physician Notes ATTESTATION I also saw the patient and confirmed marrero portions of the history and exam. I agree with the impression and plan in the resident documentation, and as summarized below. Patient is seated in bed; she is smiling, she looks markedly improved compared to yesterday. She notes that she is feeling better. She recalls one episode of dyspnea yesterday, but none today. She been able to the bathroom. EXAM 117/76, 89, 18, 36.7, 99% on room air Pleasant alert. No acute distress appreciated. Heart regular rate and rhythm. Lungs clear with nonlabored respirations; she talks in full and complete sentences without pause; no coughing Abdomen with tenderness, lower quadrants, no rebound or guarding DATA Labs White blood cell count 24.39, yesterday 23.63; 31.15 upon admission Hemoglobin 7.7, down from 8.3 yesterday; 8.1 upon admission; indices are microcytic, hypochromic; positive poikilocytosis, microcytosis Sodium 140, potassium 3.7, BUN 6, creatinine 0.64 Imaging Chest x-ray showed no acute disease CT scan abdomen pelvis on 08/11/2023 shows right external iliac and inguinal lymphadenopathy. Micro Urine culture collected 08/11/2023 shows normal tammy Blood cultures collected 08/11/2023 showed no growth at 24 hours IMPRESSION & PLAN C. difficile infection Continue oral vancomycin GI consult appreciated COVID 19 infection Minimally symptomatic, though could be contributing to her leukocytosis and overall condition/fatigue Leukocytosis Persistent; most likely related to C. 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 Given the poikilocytosis, will check peripheral smear Given microcytosis, will check iron studies Additional per resident documentation Subjective Patient seen at bedside. Rectal pain 8/10 which is improved from previous. Still having bloody diarrhea. Denies cp, sob, N/V. No urinary symptoms. Review of Systems Review of Systems: All systems reviewed & are unremarkable except as noted in HPI & below Physical Exam Physical Exam: Constitutional: in no acute distress, pleasant. AOx3. Vitals as above. HEENT: No scleral injection or discharge.Moist mucous membranes. Neck: Supple without lymphadenopathy or thyromegaly. Trachea midline. Lungs: Clear to auscultation bilaterally with good effort. No wheezes/rales/rhonchi. Cardiac: RRR. No murmurs. No lower extremity edema. 2+ distal peripheral pulses. Abdomen: +BS. Soft and nondistended.Tender in lower quadrants R>L. No guarding. No hepatosplenomegaly. MSK: No cyanosis or clubbing. Skin: No rashes, warm, dry. Neurologic: no focal deficits Results & Data Results & Data Vital Signs (Past 12 Hours) Vital Signs Temp Pulse Resp BP Pulse Ox O2 Del Method 08/13/23 06:14 36.7 C 89 18 117/76 99 Room Air 08/13/23 04:30 36.7 C 78 18 99/67 L 98 Room Air 08/12/23 23:01 36.7 C 78 20 96/61 L 98 Room Air Laboratory Results 08/13/23 08/12/23 08/11/23 Range/Units 07:14 14:58 19:45 WBC 24.39 H 23.63 H (4.8-10.8) K/ul RBC 3.64 L 3.91 L (4.20-5.40) M/uL Hgb 7.7 L 8.3 L (12.0-16.0) g/dl Hct 25.8 L 27.3 L (37.0-47.0) % MCV 70.9 L 69.8 L (80.0-100.0) fL MCH 21.2 L 21.2 L (25.0-34.0) pg MCHC 29.8 L 30.4 L (32.0-36.0) g/dL RDW Std Deviation 46.0 44.7 (36.4-46.3) fL RDW Coeff of Erika 17.9 H 17.9 H (11.5-14.5) % Plt Count 394 371 (130-400) K/uL MPV 10.1 10.6 (9.4-12.4) fL Immature Gran % (Auto) 1.7 0.7 % Neut % (Auto) 81.5 82.4 % Lymph % (Auto) 8.6 7.4 % Elmore % (Auto) 7.2 9.0 % Eos % (Auto) 0.8 0.3 % Baso % (Auto) 0.2 0.2 % Neut # (Auto) 19.89 H 19.48 H (1.40-6.50) K/uL Lymph # (Auto) 2.09 1.75 (1.20-3.40) K/uL Elmore # (Auto) 1.75 H 2.13 H (0.11-0.59) K/uL Eos # (Auto) 0.19 0.06 (0.00-0.50) K/uL Baso # (Auto) 0.05 0.05 (0.00-0.20) K/uL Immature Gran # (Auto) 0.42 H 0.16 (0.01-0.20) K/uL Polychromasia 2+ 1+ Poikilocytosis Present Present Microcytosis Present Present Sodium 140 (136-145) mmol/L Potassium 3.7 (3.5-5.1) mmol/L Chloride 111 H (98-107) mmol/L Carbon Dioxide 17 L (21-32) mmol/L Anion Gap 12 H (3-11) BUN 6 (6-23) mg/dl Creatinine 0.64 (0.6-1.2) mg/dl Est Cr Clr Drug Dosing 131.3 ml/min Est GFR ( Amer) 141.7 ml/min Est GFR (Non-Af Amer) 122.3 ml/min BUN/Creatinine Ratio 9.4 L (10-20) Glucose 64 L (70-99(Fasting)) mg/dl Calcium 8.5 L (8.6-10.3) mg/dl Total Bilirubin 0.3 (0.2-1.0) mg/dl AST 34 (13-39) U/L ALT 30 (7-52) U/L Alkaline Phosphatase 79 (34-104) U/L Total Protein 5.9 L D (6.0-8.3) gm/dl Albumin 3.1 L (3.4-5.0) gm/dl Globulin 2.8 (2.5-4.0) gm/dl Albumin/Globulin Ratio 1.1 (0.9-2) C.trachomatis RNA Not Detected (NotDetected) N.gonorrhoeae RNA Not Detected (NotDetected) Resident Activity Tracking Resident Involvement: Resident Care Provided Care Provided: Adult Hospital Medicine (5) UTI (urinary tract infection) Hematuria presence: without hematuria Urinary tract infection type: acute cystitis Qualified Code(s): N30.00 - Acute cystitis without hematuria (6) Fever Encounter type: initial encounter
--- NOTE | 2023-08-13 14:58 | XRay Report ---
XR chest 1V portable HISTORY: Fever. h/o Kira's COMPARISON: Chest 08/11/2023. FINDINGS: The lungs are clear. The heart is normal in size. No pneumothorax. No acute fractures. Trac e bilateral pleural effusions, unchanged. IMPRESSION: 1. No acute process within the chest. 2. Trace bilateral pleural effusions, unchanged. ACT 112: Negative or not required by law. Electronically signed by: Mahendra Camacho M.D. 08/13/2023 2:56 PM
[2023-08-14] MEDS ORDERED: BENZONATATE 100 MG CAPSULE PO PRN (00:03)
[2023-08-14] MEDS ORDERED: ALBUT/IPRATROP 3MG/0.5MG NEB 3 ML VIAL NEB STA (00:18)
[2023-08-14] MEDS ORDERED: PROMETHAZINE HCL INJ 25 MG/ML 1 ML VIAL IM STA (01:19)
[2023-08-14] MEDS: SODIUM CHLORIDE 0.9% 1,000 ML IV SCH ×3 (01:22→20:25)
[2023-08-14] MEDS: CHERRY SYRUP 5 ML UDP PO SCH ×4 (01:23→18:37)
[2023-08-14] MEDS: VANCOMYCIN HCL 250 MG/5 ML SOLN PO SCH ×4 (01:49→18:37)
[2023-08-14] MEDS: KETOROLAC TROMETHAMINE 15 MG/ML VIAL IV PRN ×2 (01:50→09:03)
[2023-08-14] MEDS ORDERED: ALBUT/IPRATROP 3MG/0.5MG NEB 3 ML VIAL NEB PRN (01:54)
[2023-08-14 07:47] LABS: Basophils # (auto) 0.03 K/uL (0.00-0.20); Basophils % (auto) 0.2 %; Eosinophils # (auto) 0.07 K/uL (0.00-0.50); Eosinophils % (auto) 0.4 %; Hemoglobin 7.1 g/dl (12.0-16.0); Immature Granulocytes # (auto) 0.35 K/uL (0.01-0.20); Immature Granulocytes % (auto) 1.8 %; Lymphocytes # (auto) 1.95 K/uL (1.20-3.40); Lymphocytes % (auto) 10.1 %; Mean Corpuscular Hemoglobin 21.2 pg (25.0-34.0); Mean Corpuscular Hgb Conc 30.9 g/dL (32.0-36.0); Mean Corpuscular Volume 68.7 fL (80.0-100.0); Monocytes # (auto) 1.27 K/uL (0.11-0.59); Monocytes % (auto) 6.5 %; Neutrophils # (auto) 15.73 K/uL (1.40-6.50); RDW Coefficient of Variation 18.2 % (11.5-14.5); RDW Standard Deviation 44.5 fL (36.4-46.3); Red Blood Count 3.35 M/uL (4.20-5.40)
[2023-08-14 07:59] LABS: Mean Platelet Volume 10.1 fL (9.4-12.4); Platelet Count 440 K/uL (130-400)
[2023-08-14 08:07] LABS: BUN Creatinine Ratio 4.8 (10-20); Calcium 8.2 mg/dl (8.6-10.3); Creatinine Clr Calc Pharmacy 135.2 ml/min; Est GFR (African American) 143.2 ml/min; Est GFR (Non-African American) 123.6 ml/min; Magnesium 1.7 mg/dl (1.7-2.4); Potassium 3.3 mmol/L (3.5-5.1)
[2023-08-14] MEDS ORDERED: POTASSIUM CHLORIDE CRTAB 20 MEQ TABCR PO STA (08:08)
[2023-08-14 08:11] LABS: Hypochromasia Present; Microcytosis Present; Polychromasia 1+
[2023-08-14 08:29] LABS: Folate (Folic Acid),Ser orPlas 11.28 ng/ml (>5.38)
[2023-08-14] MEDS ORDERED: SODIUM CHLORIDE 0.9% 250 ML IV PRN ×2 (09:02→11:30)
[2023-08-14] MEDS: ONDANSETRON INJ 2 MG/ML 2 ML VIAL IV PRN (09:03)
--- NOTE | 2023-08-14 09:30 | Hospitalist Progress Note ---
Date of Service August 14, 2023 Assessment & Plan (1) Bright red rectal bleeding: Plan: 28 yo female with PMHx of corinna's granulomatosis and hemorrhoids presents with rectal pain. #Clostridium difficile infection -SIRS positive on admission with febrile illness and leukocytosis -BCx NGTD -GI PCR negative except for C difficile -Received cefepime + Zosyn in ER, discontinued after positive test and now on oral vancomycin -IVF, Tylenol and Toradol PRN pain, anti-emetics #Acute hematochezia #H/o hemorrhoids -continues having right red bloody diarrhea with pain, known h/o hemorrhoids. -CT A/P: no obvious sites of bleeding -IVF, Protonix BID -GI consulted -treat C. diff infection -outpatient colonoscopy once infection resolved #Anemia -multifactorial due to iron deficiency, Corinna's, and acute blood loss as above -Hgb: 8.8 on admission and decreasing to now 7.1. Does appear symptomatic from this. Will transfuse 1 unit now. Recheck cbc in am. -recommend supplementing iron once infection treated -consider rheumatology consult #Leukocytosis -Marked leukocytosis, trending downwards -Likely due to C difficile infection though this may also be secondary to COVID #Urinary tract infection -Has had ongoing UTI over past month though symptoms have now resolved -UA on admission appearing grossly infected, culture NGTD - no abx indicated at this time #Constipation -Continue IVF, supportive care -Holding further laxatives/stool softeners with active C difficile diarrhea #Abdominal lymphadenopathy -CT A/P: progressively enlarging R external iliac and inguinal lymphadenopathy - more likely reactive to underlying process -Repeat CT in 3-6 months as outpatient #Corinna's Granulomatosis -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 Hold for now in setting of infection. -Likely not in acute flare #COVID -Tested positive 08/04/2023 -Isolation precautions -Deferring further management given stable respiratory status DVT ppx: SCDs, ambulation FEN/GI: regular Code Status: full Dispo: med tele (2) Iliac lymphadenopathy: (3) Inguinal lymphadenopathy: (4) COVID-19: (5) UTI (urinary tract infection): (6) Fever: Admission and Anticipated Discharge Date Admission Date: August 11, 2023 Supervising Physician Co-Signing Physician Notes ATTESTATION I also saw the patient and confirmed marrero portions of the history and exam. I agree with the impression and plan in the resident documentation, and as summarized below. Feeling about the same but slightly better. Still gets some intermittent abdominal cramping. She was able to find some previous hemoglobin levels -some around June,, hemoglobin low 10. She does recall being anemic before. She was on iron supplementation previously. EXAM 115/78, 79, 18, 36.9, high percent on room air Pleasant alert. No acute distress appreciated. Heart regular rate and rhythm. Lungs clear with nonlabored respirations; she talks in full and complete sentences without pause; no coughing Abdomen with tenderness, lower quadrants, no rebound or guarding DATA Labs White blood cell count 19.4, hemoglobin 7.1, platelet count 440 Peripheral smear is pending Sodium 140, potassium 3.3, BUN 3, creatinine 0.62 Iron studies consistent with iron deficiency. Imaging Chest x-ray completed 08/13/2023 shows no acute process, trace bilateral pleural effusions unchanged from previous. KUB completed 08/14/2023 shows non obstructive gas pattern with moderate amount of stool within the large colon Micro Urine culture collected 08/11/2023 shows normal tammy Blood cultures collected 08/11/2023 showed no growth at 48 hours IMPRESSION & PLAN C. difficile infection Continue oral vancomycin GI consult appreciated COVID 19 infection Minimally symptomatic, though could be contributing to her leukocytosis and overall condition/fatigue Leukocytosis Continues to slowly improve; most likely related to C. 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 Discussed outpatient follow-up [place]. [place] Anemia, suspect iron deficiency There are certainly some acute blood loss, but indices suggest more of a chronic, microcytic anemia Patient will check her patient portal from [employer] ([place]) to help us establish her baseline hemoglobin Today she recalls being diagnosed as anemic concurrent with her Corinna's diagnosis; she was on iron supplementation before, but not currently Transfusion 1 unit packed red blood cells today Would hold off on IV iron in setting of acute infection Begin oral iron supplementation once her GI symptoms improve Peripheral smear is pending from yesterday Additional per resident documentation Subjective Patient seen at bedside. Overall feeling a little better but still with weakness and shortness of breath especially with ambulation. Did vomit last night with rigors as well which did improve with tylenol. Still having bloody diarrhea. Denies chest pain. No urinary symptoms. Review of Systems Review of Systems: All systems reviewed & are unremarkable except as noted in HPI & below Physical Exam Physical Exam: Constitutional: in no acute distress, pleasant. AOx3. Vitals as above. HEENT: No scleral injection or discharge.Moist mucous membranes. Neck: Supple without lymphadenopathy or thyromegaly. Trachea midline. Lungs: Clear to auscultation bilaterally with good effort. No wheezes/rales/rhonchi. Cardiac: RRR. No murmurs. No lower extremity edema. 2+ distal peripheral pulses. Abdomen: +BS. Soft and nondistended.Tender in lower quadrants R>L. No guarding. No hepatosplenomegaly. MSK: No cyanosis or clubbing. Skin: No rashes, warm, dry. Neurologic: no focal deficits Results & Data Results & Data Vital Signs (Past 12 Hours) Vital Signs Temp Pulse Pulse Resp BP Pulse Ox O2 Del Method 08/14/23 07:37 37.8 C H 98 H 18 112/73 97 Room Air 08/14/23 04:00 37.2 C 99 H 20 107/70 98 Room Air 08/14/23 02:06 103 H 18 98 Room Air 08/13/23 23:00 37.7 C H 119 H 25 H 98 Room Air 08/13/23 22:07 80 Laboratory Results 08/14/23 Range/Units 07:24 WBC 19.40 H (4.8-10.8) K/ul RBC 3.35 L (4.20-5.40) M/uL Hgb 7.1 L (12.0-16.0) g/dl Hct 23.0 L (37.0-47.0) % MCV 68.7 L (80.0-100.0) fL MCH 21.2 L (25.0-34.0) pg MCHC 30.9 L (32.0-36.0) g/dL RDW Std Deviation 44.5 (36.4-46.3) fL RDW Coeff of Erika 18.2 H (11.5-14.5) % Plt Count 440 H (130-400) K/uL MPV 10.1 (9.4-12.4) fL Immature Gran % (Auto) 1.8 % Neut % (Auto) 81.0 % Lymph % (Auto) 10.1 % Ballard % (Auto) 6.5 % Eos % (Auto) 0.4 % Baso % (Auto) 0.2 % Neut # (Auto) 15.73 H (1.40-6.50) K/uL Lymph # (Auto) 1.95 (1.20-3.40) K/uL Ballard # (Auto) 1.27 H (0.11-0.59) K/uL Eos # (Auto) 0.07 (0.00-0.50) K/uL Baso # (Auto) 0.03 (0.00-0.20) K/uL Immature Gran # (Auto) 0.35 H (0.01-0.20) K/uL Polychromasia 1+ Hypochromasia Present Microcytosis Present Peripher Smr Path Cons Pending Sodium 140 (136-145) mmol/L Potassium 3.3 L (3.5-5.1) mmol/L Chloride 113 H (98-107) mmol/L Carbon Dioxide 21 (21-32) mmol/L Anion Gap 6 (3-11) BUN 3 L (6-23) mg/dl Creatinine 0.62 (0.6-1.2) mg/dl Est Cr Clr Drug Dosing 135.2 ml/min Est GFR ( Amer) 143.2 ml/min Est GFR (Non-Af Amer) 123.6 ml/min BUN/Creatinine Ratio 4.8 L (10-20) Glucose 118 H (70-99(Fasting)) mg/dl Calcium 8.2 L (8.6-10.3) mg/dl Magnesium 1.7 (1.7-2.4) mg/dl Iron 18 L (35-150) mcg/dl TIBC 160 L (250-450) mcg/dl Unsaturated IBC 142 L (155-355) mcg/dl Transferrin % Sat 11 L (15-50) % Ferritin 77.0 (8-388) ng/ml Vitamin B12 366 (180-914) pg/ml Folate 11.28 (>5.38) ng/ml Resident Activity Tracking Resident Involvement: Resident Care Provided Care Provided: Adult Hospital Medicine (5) UTI (urinary tract infection) Hematuria presence: without hematuria Urinary tract infection type: acute cystitis Qualified Code(s): N30.00 - Acute cystitis without hematuria (6) Fever Encounter type: initial encounter
[2023-08-14] MEDS: PANTOprazole 40 MG in SYRINGE 0 ML IV SCH ×2 (09:46→20:25)
--- NOTE | 2023-08-14 11:47 | XRay Report ---
XR KUB/Abdomen 1 view CLINICAL HISTORY: abdominal pain, rule out blockage TECHNIQUE: 1 view of the abdomen was obtained. Comparison: None available at the time of this dictation. FINDINGS: Lung bases are unremarkable. The osseous structures are grossly unremarkable. The bowel gas pattern i s nonobstructive. A moderate amount of stool is noted within the large bowel. IMPRESSION: Nonobstructive bowel gas pattern. ACT 112: Negative or not required by law. Electronically signed by: Kyle Crandall M.D. 08/14/2023 11:45 AM
[2023-08-14] MEDS ORDERED: ACETAMINOPHEN 1000 MG/100 ML IV IV ONE (19:46)
[2023-08-15] MEDS: SODIUM CHLORIDE 0.9% 1,000 ML IV SCH ×3 (00:24→17:08)
[2023-08-15] MEDS: VANCOMYCIN HCL 250 MG/5 ML SOLN PO SCH ×5 (00:24→23:42)
[2023-08-15] MEDS: CHERRY SYRUP 5 ML UDP PO SCH ×5 (00:25→23:43)
[2023-08-15 07:21] LABS: Anion Gap 9 (3-11); BUN Creatinine Ratio 3.8 (10-20); Blood Urea Nitrogen 2 mg/dl (6-23); Calcium 8.5 mg/dl (8.6-10.3); Carbon Dioxide 21 mmol/L (21-32); Chloride 112 mmol/L (98-107); Creatinine Clr Calc Pharmacy 158.2 ml/min; Est GFR (African American) > 150.0 ml/min; Est GFR (Non-African American) 130.1 ml/min; Glucose 88 mg/dl (70-99(Fasting)); Magnesium 1.7 mg/dl (1.7-2.4); Potassium 3.6 mmol/L (3.5-5.1); Sodium 142 mmol/L (136-145)
--- NOTE | 2023-08-15 07:31 | Hospitalist Progress Note ---
Date of Service August 15, 2023 Assessment & Plan (1) Bright red rectal bleeding: Plan: 28 yo female with PMHx of corinna's granulomatosis and hemorrhoids presents with rectal pain. #Clostridium difficile infection -SIRS positive on admission with febrile illness and leukocytosis -BCx NGTD -GI PCR negative except for C difficile -Received cefepime + Zosyn in ER, discontinued after positive test and now on oral vancomycin -IVF, Tylenol and Toradol PRN pain, anti-emetics - will add cholestyramine with hopes it will help with diarrhea #Acute hematochezia #H/o hemorrhoids -improving -CT A/P: no obvious sites of bleeding -IVF, Protonix BID -GI consulted -treat C. diff infection -outpatient colonoscopy once infection resolved #Anemia -multifactorial due to iron deficiency, Ocrinna's, and acute blood loss as above -Hgb lowest at 7.1 08/14 s/p 1 unit PRBC; now up to 10.1 -recommend supplementing iron once infection treated #Leukocytosis -Marked leukocytosis, trending downwards -Likely due to C difficile infection though this may also be secondary to COVID #Urinary tract infection -Has had ongoing UTI over past month though symptoms have now resolved -UA on admission appearing grossly infected, culture NGTD - no abx indicated at this time #Constipation -Continue IVF, supportive care -Holding further laxatives/stool softeners with active C difficile diarrhea #Abdominal lymphadenopathy -CT A/P: progressively enlarging R external iliac and inguinal lymphadenopathy - more likely reactive to underlying process -Repeat CT in 3-6 months as outpatient #Corinna's Granulomatosis -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 Hold for now in setting of infection. -Likely not in acute flare #COVID -Tested positive 08/04/2023 -Isolation precautions -Deferring further management given stable respiratory status DVT ppx: SCDs, ambulation FEN/GI: regular Code Status: full (2) Iliac lymphadenopathy: (3) Inguinal lymphadenopathy: (4) COVID-19: (5) UTI (urinary tract infection): (6) Fever: Admission and Anticipated Discharge Date Admission Date: August 11, 2023 Supervising Physician Co-Signing Physician Notes I personally examined the patient and verified all marrero points of history and exam, discussed case, and agree with decision making with Dr Harp feeling better than when she came in. belly still upset - but doing a little better with PO intake. still a good deal of diarrhea though IMPRESSION & PLAN C. 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 Anemia, suspect iron deficiency -start PO iron once able; hold off on IV due to sepsis -transfused 1 unit prbc yesterday due to low counts/symptoms -continue to follow DVT proph -ambulation Additional per resident documentation Subjective Doing better this morning. Overall feeling better. Tolerating some fluids, no solids. Pain improving. Still having ~7 BM per day. Review of Systems Review of Systems: As per above Physical Exam Physical Exam: Constitutional: well-appearing, no acute distress HEENT: NCAT, no conjunctival injection CV: regular rhythm, no murmur appreciated, extremities well-perfused, no LE edema Resp: CTABL, no wheezes/rales/rhonchi appreciated, no increased work of breathing GI: soft, nondistended, mild diffuse tenderness, BS normoactive MSK: no gross deformities appreciated Skin: warm, dry, no rash appreciated Neuro: alert, oriented, no focal neurologic deficit appreciated Results & Data Results & Data Vital Signs (Past 12 Hours) Vital Signs Temp Pulse Pulse Resp BP BP Pulse Ox 08/15/23 07:16 37.8 C H 93 H 18 128/82 99 08/15/23 03:17 36.8 C 82 20 114/76 97 08/14/23 23:27 36.5 C 78 18 117/79 96 08/14/23 21:00 O2 Del Method 08/15/23 07:16 Room Air 08/15/23 03:17 Room Air 08/14/23 23:27 Room Air 08/14/23 21:00 Room Air Resident Activity Tracking Resident Involvement: Resident Care Provided Care Provided: Adult Hospital Medicine (5) UTI (urinary tract infection) Hematuria presence: without hematuria Urinary tract infection type: acute cystitis Qualified Code(s): N30.00 - Acute cystitis without hematuria (6) Fever Encounter type: initial encounter
[2023-08-15 07:40] LABS: Anisocytosis Present; Basophils # (auto) 0.06 K/uL (0.00-0.20); Basophils % (auto) 0.4 %; Eosinophils # (auto) 0.12 K/uL (0.00-0.50); Eosinophils % (auto) 0.7 %; Hematocrit (blood only) 31.9 % (37.0-47.0); Hemoglobin 10.1 g/dl (12.0-16.0); Immature Granulocytes # (auto) 0.69 K/uL (0.01-0.20); Immature Granulocytes % (auto) 4.1 %; Lymphocytes # (auto) 2.46 K/uL (1.20-3.40); Lymphocytes % (auto) 14.7 %; Mean Corpuscular Hemoglobin 22.9 pg (25.0-34.0); Mean Corpuscular Hgb Conc 31.7 g/dL (32.0-36.0); Mean Corpuscular Volume 72.2 fL (80.0-100.0); Mean Platelet Volume 10.7 fL (9.4-12.4); Monocytes # (auto) 1.39 K/uL (0.11-0.59); Monocytes % (auto) 8.3 %; Neutrophils # (auto) 12.07 K/uL (1.40-6.50); Neutrophils % (auto) 71.8 %; Nucleated RBC # (auto) 0.06 K/uL (0.00-0.12); Nucleated RBC % (auto) 0.4 %; Platelet Count 432 K/uL (130-400); Platelet Estimate Increased (Normal); Polychromasia 1+; RDW Coefficient of Variation 20.9 % (11.5-14.5); Red Blood Count 4.42 M/uL (4.20-5.40); Toxic Vacuolation 2+; White Blood Count 16.79 K/ul (4.8-10.8)
[2023-08-15] MEDS: PANTOprazole 40 MG in SYRINGE 0 ML IV SCH ×2 (09:10→20:39)
--- NOTE | 2023-08-15 16:33 | Billing Data ---
Date of Service August 15, 2023 Coding Level of Care Code 76734 SUB INP/OBS CARE MIN
[2023-08-15] MEDS: CHOLESTYRAMINE LIGHT 4 GM PKT PO SCH (17:08)
[2023-08-15] MEDS: ACETAMINOPHEN 1,000 MG/100 ML VIAL IV PRN (19:32)
[2023-08-15] MEDS ORDERED: CHOLESTYRAMINE LIGHT 4 GM PKT PO SCH (22:00)
[2023-08-16] MEDS: SODIUM CHLORIDE 0.9% 1,000 ML IV SCH ×3 (02:48→19:39)
[2023-08-16] MEDS: CHOLESTYRAMINE LIGHT 4 GM PKT PO SCH ×2 (05:42→17:21)
[2023-08-16] MEDS: CHERRY SYRUP 5 ML UDP PO SCH ×3 (05:42→11:46)
[2023-08-16] MEDS: VANCOMYCIN HCL 250 MG/5 ML SOLN PO SCH ×3 (05:43→17:23)
[2023-08-16] MEDS: FOLIC ACID 1 MG TAB PO SCH (07:48)
[2023-08-16] MEDS: PANTOprazole 40 MG in SYRINGE 0 ML IV SCH ×2 (07:48→21:00)
[2023-08-16] MEDS: ACETAMINOPHEN 1,000 MG/100 ML VIAL IV PRN ×2 (08:06→19:49)
[2023-08-16 08:49] LABS: Albumin Level 3.1 gm/dl (3.4-5.0); Anion Gap 8 (3-11); Bilirubin,Total 0.4 mg/dl (0.2-1.0); Calcium 8.5 mg/dl (8.6-10.3); Carbon Dioxide 24 mmol/L (21-32); Chloride 109 mmol/L (98-107); Magnesium 1.7 mg/dl (1.7-2.4); Potassium 3.6 mmol/L (3.5-5.1); Sodium 141 mmol/L (136-145)
[2023-08-16 08:55] LABS: Alanine Aminotransferase 22 U/L (7-52); Albumin Globulin Ratio 1.1 (0.9-2); Alkaline Phosphatase 62 U/L (34-104); Aspartate Aminotransferase 16 U/L (13-39); BUN Creatinine Ratio 5.9 (10-20); Blood Urea Nitrogen 3 mg/dl (6-23); Creatinine Clr Calc Pharmacy 164.4 ml/min; Est GFR (African American) > 150.0 ml/min; Est GFR (Non-African American) 131.8 ml/min; Globulin 2.8 gm/dl (2.5-4.0); Glucose 91 mg/dl (70-99(Fasting)); Total Protein 5.9 gm/dl (6.0-8.3)
[2023-08-16 09:05] LABS: Hematocrit (blood only) 28.5 % (37.0-47.0); Hemoglobin 9.2 g/dl (12.0-16.0); Mean Corpuscular Hemoglobin 22.8 pg (25.0-34.0); Mean Corpuscular Hgb Conc 32.3 g/dL (32.0-36.0); Mean Corpuscular Volume 70.7 fL (80.0-100.0); RDW Coefficient of Variation 21.2 % (11.5-14.5); RDW Standard Deviation 51.3 fL (36.4-46.3); Red Blood Count 4.03 M/uL (4.20-5.40); White Blood Count 13.61 K/ul (4.8-10.8)
[2023-08-16 09:20] LABS: Anisocytosis Present; Basophils # (auto) 0.04 K/uL (0.00-0.20); Basophils % (auto) 0.3 %; Eosinophils # (auto) 0.14 K/uL (0.00-0.50); Immature Granulocytes # (auto) 0.35 K/uL (0.01-0.20); Immature Granulocytes % (auto) 2.6 %; Lymphocytes # (auto) 2.26 K/uL (1.20-3.40); Lymphocytes % (auto) 16.6 %; Monocytes # (auto) 1.49 K/uL (0.11-0.59); Monocytes % (auto) 10.9 %; Neutrophils # (auto) 9.33 K/uL (1.40-6.50); Neutrophils % (auto) 68.6 %; Toxic Vacuolation 1+
--- NOTE | 2023-08-16 11:40 | Hospitalist Progress Note ---
Date of Service August 16, 2023 Assessment & Plan (1) Bright red rectal bleeding: Plan: 28 yo female with PMHx of corinna's granulomatosis and hemorrhoids presents with c diff. #Clostridium difficile infection -SIRS positive on admission with febrile illness and leukocytosis -BCx NGTD -GI PCR negative except for C difficile -Received cefepime + Zosyn in ER, discontinued after positive test and now on oral vancomycin -IVF, Tylenol and Toradol PRN pain, anti-emetics - will add cholestyramine with hopes it will help with diarrhea #Acute hematochezia #H/o hemorrhoids -improving -CT A/P: no obvious sites of bleeding -IVF, Protonix BID -GI consulted -treat C. diff infection -outpatient colonoscopy once infection resolved -topical lidocaine for hemorrhoids #Anemia -multifactorial due to iron deficiency, Corinna's, and acute blood loss as above -Hgb lowest at 7.1 08/14 s/p 1 unit PRBC; stable at 9.2 -recommend supplementing iron once infection treated #Leukocytosis -Marked leukocytosis, trending downwards -Likely due to C difficile infection though this may also be secondary to COVID #Urinary tract infection -Has had ongoing UTI over past month though symptoms have now resolved -UA on admission appearing grossly infected, culture NGTD - no abx indicated at this time #Abdominal lymphadenopathy -CT A/P: progressively enlarging R external iliac and inguinal lymphadenopathy - more likely reactive to underlying process -Repeat CT in 3-6 months as outpatient #Corinna's Granulomatosis -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 Hold for now in setting of infection. -Likely not in acute flare #COVID -Tested positive 08/04/2023 -Isolation precautions -Deferring further management given stable respiratory status DVT ppx: SCDs, ambulation FEN/GI: regular Code Status: full (2) Iliac lymphadenopathy: (3) Inguinal lymphadenopathy: (4) COVID-19: (5) UTI (urinary tract infection): (6) Fever: Admission and Anticipated Discharge Date Admission Date: August 11, 2023 Supervising Physician Co-Signing Physician Notes I personally examined the patient and verified all marrero points of history and exa m, discussed case, and agree with decision making with Dr Harp Still not eating much, although notes that the food that she is being brought is fairly unappealing. I asked her if crackers sounded better, she said yesgot her a significant amount of crackers and kimmie king. Asked community administrator to touch base with the kitchen to make sure that they give her options that might appeal to her GI tract recovering from C. difficile rather than just what is on the menu. she does note rectal burning from all of her bowel movements. Vitals noted, in general she is awake and alert appears much brighter, no distress, less fatigue. Breathing unlabored no accessory muscle use good effort. Skin shows no rashes no pallor or icterus. Neuro without focal deficits. IMPRESSION & PLAN C. 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 Anemia, suspect iron deficiency -start PO iron once able; hold off on IV due to sepsis -transfused 1 unit prbc earlier this admission due to low counts/symptoms -continue to follow DVT proph -ambulation Additional per resident documentation Subjective Pt seen at bedside this morning. No decrease in number of BM per day. Denies blood in stool. Tried solids with dinner yesterday, had abdmonal cramping afterwards. Review of Systems Review of Systems: As per above Physical Exam Physical Exam: Constitutional: well-appearing, no acute distress HEENT: NCAT, no conjunctival injection CV: regular rhythm, no murmur appreciated, extremities well-perfused, no LE edema Resp: CTABL, no wheezes/rales/rhonchi appreciated, no increased work of breathing GI: soft, nondistended, mild diffuse tenderness, BS normoactive MSK: no gross deformities appreciated Skin: warm, dry, no rash appreciated Neuro: alert, oriented, no focal neurologic deficit appreciated Results & Data Results & Data Vital Signs (Past 12 Hours) Vital Signs Temp Pulse Resp BP Pulse Ox O2 Del Method 08/16/23 08:00 36.7 C 89 18 125/84 97 Room Air Resident Activity Tracking Resident Involvement: Resident Care Provided Care Provided: Adult Hospital Medicine (5) UTI (urinary tract infection) Hematuria presence: without hematuria Urinary tract infection type: acute cystitis Qualified Code(s): N30.00 - Acute cystitis without hematuria (6) Fever Encounter type: initial encounter
[2023-08-16] MEDS ORDERED: Nursing to Pharmacy Communication SCH (11:45)
[2023-08-16] MEDS ORDERED: LIDOCAINE 4% CREAM 15 GM TUBE EXT PRN (11:55)
--- NOTE | 2023-08-16 18:29 | Billing Data ---
Date of Service August 16, 2023 Coding Level of Care Code 74657 SUB INP/OBS CARE
--- NOTE | 2023-08-16 18:30 | Billing Data ---
Date of Service August 16, 2023 Coding Level of Care Code 24653 SUB INP/OBS CARE MIN
[2023-08-16] MEDS: BUTT PASTE (ZINC OXIDE 16%) 171 APPLN/57 GM JAR EXT SCH (21:00)
[2023-08-16] MEDS ORDERED: KETOROLAC TROMETHAMINE 15 MG/ML VIAL IV ONE (21:24)
[2023-08-17] MEDS: CHERRY SYRUP 5 ML UDP PO SCH ×4 (00:04→17:05)
[2023-08-17] MEDS: VANCOMYCIN HCL 250 MG/5 ML SOLN PO SCH ×4 (00:04→17:05)
[2023-08-17] MEDS: SODIUM CHLORIDE 0.9% 1,000 ML IV SCH ×3 (04:22→20:08)
[2023-08-17] MEDS: CHOLESTYRAMINE LIGHT 4 GM PKT PO SCH ×2 (05:32→17:04)
[2023-08-17 06:52] LABS: Alanine Aminotransferase 21 U/L (7-52); Albumin Globulin Ratio 1.1 (0.9-2); Albumin Level 3.1 gm/dl (3.4-5.0); Alkaline Phosphatase 65 U/L (34-104); Anion Gap 8 (3-11); Aspartate Aminotransferase 17 U/L (13-39); BUN Creatinine Ratio 3.9 (10-20); Bilirubin,Total 0.3 mg/dl (0.2-1.0); Blood Urea Nitrogen 2 mg/dl (6-23); Calcium 8.8 mg/dl (8.6-10.3); Carbon Dioxide 25 mmol/L (21-32); Chloride 107 mmol/L (98-107); Creatinine Clr Calc Pharmacy 164.4 ml/min; Est GFR (African American) > 150.0 ml/min; Est GFR (Non-African American) 131.8 ml/min; Globulin 2.7 gm/dl (2.5-4.0); Glucose 94 mg/dl (70-99(Fasting)); Magnesium 1.7 mg/dl (1.7-2.4); Potassium 3.3 mmol/L (3.5-5.1); Sodium 140 mmol/L (136-145); Total Protein 5.8 gm/dl (6.0-8.3)
[2023-08-17 06:56] LABS: Hematocrit (blood only) 28.4 % (37.0-47.0); Hemoglobin 8.7 g/dl (12.0-16.0); Mean Corpuscular Hemoglobin 22.4 pg (25.0-34.0); Mean Corpuscular Hgb Conc 30.6 g/dL (32.0-36.0); Mean Platelet Volume 10.9 fL (9.4-12.4); Platelet Count 414 K/uL (130-400); RDW Coefficient of Variation 21.6 % (11.5-14.5); RDW Standard Deviation 54.4 fL (36.4-46.3); Red Blood Count 3.89 M/uL (4.20-5.40)
[2023-08-17] MEDS: PANTOprazole 40 MG in SYRINGE 0 ML IV SCH ×2 (08:37→20:09)
[2023-08-17] MEDS: FOLIC ACID 1 MG TAB PO SCH (08:38)
[2023-08-17] MEDS: BUTT PASTE (ZINC OXIDE 16%) 171 APPLN/57 GM JAR EXT SCH ×4 (08:39→20:10)
[2023-08-17] MEDS: ACETAMINOPHEN 1,000 MG/100 ML VIAL IV PRN ×2 (09:08→18:39)
--- NOTE | 2023-08-17 17:04 | Hospitalist Progress Note ---
Date of Service August 17, 2023 Assessment & Plan (1) Bright red rectal bleeding: Plan: 28 yo female with PMHx of corinna's granulomatosis and hemorrhoids presents with c diff. #Clostridium difficile infection -SIRS positive on admission with febrile illness and leukocytosis -BCx NGTD -GI PCR negative except for C difficile -Received cefepime + Zosyn in ER, discontinued after positive test and now on oral vancomycin -Continue IVF until better PO intake - continue cholestyramine with hopes it will help with diarrhea, will also add Metamucil #Hemorrhoids/Anal Fissure - continue topical lidocaine, trial of topical nitro #Acute hematochezia -resolved -CT A/P: no obvious sites of bleeding -IVF, Protonix BID -GI consulted -treat C. diff infection -outpatient colonoscopy once infection resolved #Anemia -multifactorial due to iron deficiency, Corinna's, and acute blood loss as above -Hgb lowest at 7.1 08/14 s/p 1 unit PRBC; stable at 8.7 -recommend supplementing iron once infection treated #Leukocytosis -Marked leukocytosis, trending downwards -Likely due to C difficile infection though this may also be secondary to COVID #Urinary tract infection -Has had ongoing UTI over past month though symptoms have now resolved -UA on admission appearing grossly infected, culture NGTD - no abx indicated at this time #Abdominal lymphadenopathy -CT A/P: progressively enlarging R external iliac and inguinal lymphadenopathy - more likely reactive to underlying process -Repeat CT in 3-6 months as outpatient #Corinna's Granulomatosis -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 Hold for now in setting of infection. -Likely not in acute flare #COVID -Tested positive 08/04/2023 -Isolation precautions -Deferring further management given stable respiratory status DVT ppx: SCDs, ambulation FEN/GI: regular Code Status: full (2) Iliac lymphadenopathy: (3) Inguinal lymphadenopathy: (4) COVID-19: (5) UTI (urinary tract infection): (6) Fever: Admission and Anticipated Discharge Date Admission Date: August 11, 2023 Supervising Physician Co-Signing Physician Notes I personally examined the patient and verified all marrero points of history and exam, discussed case, and agree with decision making with Dr Harp Diarrhea about the same. Not eating a lot, although notes the crackers went down well. Has toast coming for dinner. Her main complaint right now is fairly severe rectal pain whenever she has a bowel movementreally getting to be intolerable. Vitals noted, in general she is awake and alert appears much brighter, no distress, less fatigue. Breathing unlabored no accessory muscle use good effort. Skin shows no rashes no pallor or icterus. Neuro without focal deficits. Rectal exam done by resident physician for patient modesty purposessee her documentation. IMPRESSION & PLAN C. difficile infection with sepsis POA Continue oral vancomycin, sepsis improving, Overall improving -added cholestyramine to try to hasten symptom improvement, Encouraged p.o. 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 Anemia, suspect iron deficiency -start PO iron; hold off on IV due to sepsis -transfused 1 unit prbc earlier this admission due to low counts/symptoms -continue to follow DVT proph -ambulation Additional per resident documentation Subjective Continue to have same number of BM per day. Limiting PO intake because fear of pain with BM. Having a lot of rectal pain with BM. Review of Systems Review of Systems: As per above Physical Exam Physical Exam: Constitutional: well-appearing, no acute distress HEENT: NCAT, no conjunctival injection CV: regular rhythm, no murmur appreciated, extremities well-perfused, no LE edema Resp: CTABL, no wheezes/rales/rhonchi appreciated, no increased work of breathing GI: soft, nondistended, mild diffuse tenderness Rectal: anal fissure posteir to rectum, prolapsed internal hemorrhoids MSK: no gross deformities appreciated Skin: warm, dry, no rash appreciated Neuro: alert, oriented, no focal neurologic deficit appreciated Results & Data Results & Data Vital Signs (Past 12 Hours) Vital Signs Temp Pulse Resp BP BP Pulse Ox O2 Del Method 08/17/23 17:00 36.9 C 73 18 128/83 99 Room Air 08/17/23 07:50 36.9 C 81 18 124/81 98 Room Air Resident Activity Tracking Resident Involvement: Resident Care Provided Care Provided: Adult Hospital Medicine (5) UTI (urinary tract infection) Hematuria presence: without hematuria Urinary tract infection type: acute cystitis Qualified Code(s): N30.00 - Acute cystitis without hematuria (6) Fever Encounter type: initial encounter
[2023-08-17] MEDS: NITROGLYCERIN 2% 7.5 INCH, AQUAPHOR 67.5 GM, BARCODE IDENTIFIER 1 EACH EXT SCH (18:12)
--- NOTE | 2023-08-17 20:05 | Billing Data ---
Date of Service August 17, 2023 Coding Level of Care Code 70443 SUB INP/OBS CARE
[2023-08-18] MEDS: VANCOMYCIN HCL 250 MG/5 ML SOLN PO SCH ×4 (00:01→18:04)
[2023-08-18] MEDS: CHERRY SYRUP 5 ML UDP PO SCH ×4 (00:02→18:04)
[2023-08-18] MEDS: SODIUM CHLORIDE 0.9% 1,000 ML IV SCH ×2 (04:15→14:58)
[2023-08-18] MEDS: CHOLESTYRAMINE LIGHT 4 GM PKT PO SCH ×2 (04:15→18:06)
[2023-08-18 06:06] LABS: Albumin Level 3.2 gm/dl (3.4-5.0); Anion Gap 9 (3-11); Bilirubin,Total 0.3 mg/dl (0.2-1.0); Calcium 8.6 mg/dl (8.6-10.3); Carbon Dioxide 24 mmol/L (21-32); Chloride 108 mmol/L (98-107); Magnesium 1.8 mg/dl (1.7-2.4); Potassium 3.7 mmol/L (3.5-5.1); Sodium 141 mmol/L (136-145)
[2023-08-18 06:12] LABS: Alanine Aminotransferase 17 U/L (7-52); Albumin Globulin Ratio 1.1 (0.9-2); Alkaline Phosphatase 66 U/L (34-104); Aspartate Aminotransferase 13 U/L (13-39); Blood Urea Nitrogen 2 mg/dl (6-23); Creatinine Clr Calc Pharmacy 167.7 ml/min; Est GFR (African American) > 150.0 ml/min; Est GFR (Non-African American) 132.6 ml/min; Glucose 81 mg/dl (70-99(Fasting)); Total Protein 6.2 gm/dl (6.0-8.3)
[2023-08-18] MEDS: ACETAMINOPHEN 1,000 MG/100 ML VIAL IV PRN (06:46)
--- NOTE | 2023-08-18 07:08 | Hospitalist Progress Note ---
Date of Service August 18, 2023 Assessment & Plan (1) Bright red rectal bleeding: Plan: 28 yo female with PMHx of corinna's granulomatosis and hemorrhoids presents with c diff. #Clostridium difficile infection -SIRS positive on admission with febrile illness and leukocytosis -BCx NGTD -GI PCR negative except for C difficile -Received cefepime + Zosyn in ER, discontinued after positive test and now on oral vancomycin -Continue IVF until better PO intake - continue cholestyramine with hopes it will help with diarrhea, will also add Metamucil #Hemorrhoids/Anal Fissure - continue topical lidocaine, trial of topical nitro #Acute hematochezia -resolved -CT A/P: no obvious sites of bleeding -IVF, Protonix BID -GI consulted -treat C. diff infection -outpatient colonoscopy once infection resolved #Anemia -multifactorial due to iron deficiency, Corinna's, and acute blood loss as above -Hgb lowest at 7.1 08/14 s/p 1 unit PRBC; stable at 8.7 -recommend supplementing iron once infection treated #Leukocytosis -Marked leukocytosis, trending downwards -Likely due to C difficile infection though this may also be secondary to COVID #Urinary tract infection -Has had ongoing UTI over past month though symptoms have now resolved -UA on admission appearing grossly infected, culture NGTD - no abx indicated at this time #Abdominal lymphadenopathy -CT A/P: progressively enlarging R external iliac and inguinal lymphadenopathy - more likely reactive to underlying process -Repeat CT in 3-6 months as outpatient #Corinna's Granulomatosis -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 Hold for now in setting of infection. -Likely not in acute flare #COVID -Tested positive 08/04/2023 -Isolation precautions -Deferring further management given stable respiratory status DVT ppx: SCDs, ambulation FEN/GI: regular Code Status: full (2) Iliac lymphadenopathy: (3) Inguinal lymphadenopathy: (4) COVID-19: (5) UTI (urinary tract infection): (6) Fever: Admission and Anticipated Discharge Date Admission Date: August 11, 2023 Review of Systems Review of Systems: As per above Physical Exam Physical Exam: Constitutional: well-appearing, no acute distress HEENT: NCAT, no conjunctival injection CV: regular rhythm, no murmur appreciated, extremities well-perfused, no LE edema Resp: CTABL, no wheezes/rales/rhonchi appreciated, no increased work of breathing GI: soft, nondistended, mild diffuse tenderness MSK: no gross deformities appreciated Skin: warm, dry, no rash appreciated Neuro: alert, oriented, no focal neurologic deficit appreciated Results & Data Results & Data Vital Signs (Past 12 Hours) Vital Signs Temp Pulse Resp BP Pulse Ox O2 Del Method 08/17/23 20:15 37.0 C 83 16 106/66 98 Room Air 08/17/23 19:55 Room Air (5) UTI (urinary tract infection) Hematuria presence: without hematuria Urinary tract infection type: acute cystitis Qualified Code(s): N30.00 - Acute cystitis without hematuria (6) Fever Encounter type: initial encounter
[2023-08-18 08:12] LABS: Hematocrit (blood only) 27.8 % (37.0-47.0); Hemoglobin 8.9 g/dl (12.0-16.0); Mean Corpuscular Hemoglobin 22.6 pg (25.0-34.0); Mean Corpuscular Volume 70.7 fL (80.0-100.0); Mean Platelet Volume 11.1 fL (9.4-12.4); Platelet Count 308 K/uL (130-400); RDW Coefficient of Variation 22.2 % (11.5-14.5); RDW Standard Deviation 54.1 fL (36.4-46.3); Red Blood Count 3.93 M/uL (4.20-5.40); White Blood Count 13.77 K/ul (4.8-10.8)
[2023-08-18] MEDS ORDERED: PSYLLIUM or GUAR GUM FIBER POWDER PACKET PO SCH (09:00)
[2023-08-18] MEDS ORDERED: FERROUS GLUCONATE 324 MG TAB PO SCH (09:00)
[2023-08-18] MEDS: FOLIC ACID 1 MG TAB PO SCH (09:13)
[2023-08-18] MEDS: PANTOprazole 40 MG in SYRINGE 0 ML IV SCH (09:13)
[2023-08-18] MEDS: BUTT PASTE (ZINC OXIDE 16%) 171 APPLN/57 GM JAR EXT SCH ×3 (09:15→18:06)
[2023-08-18] MEDS: NITROGLYCERIN 2% 7.5 INCH, AQUAPHOR 67.5 GM, BARCODE IDENTIFIER 1 EACH EXT SCH (09:16)
[2023-08-18] MEDS ORDERED: KETOROLAC TROMETHAMINE 15 MG/ML VIAL IV PRN (09:54)
[2023-08-18] MEDS ORDERED: ACETAMINOPHEN 500 MG TAB PO PRN (09:56)
--- NOTE | 2023-08-18 15:58 | Discharge Summary ---
Date of Service August 18, 2023 Admission HPI Per Admitting Provider 28 yo female with PMHx of kira's granulomatosis and hemorrhoids presents with rectal pain. 1 month ago patient presented to the ED with suspected UTI and was discharged on course of Omnicef. She states the antibiotic never fully resolved her symptoms and she returned to the ED 1 week ago with ongoing urinary symptoms and rectal pain. Rectal pain was presumed due to h/o hemorrhoids. She also incidentally tested positive for COVID. She was discharged on Augmentin to cover for possible ongoing UTI and/or other infectious etiology. Since then she has had ongoing fevers, chills, fatigue, nausea, suprapubic pain, rectal pain bright red bloody diarrhea x2. Denies dysuria or urinary frequency. She is in a monogamous relationship. Has never had colonoscopy performed. Principal Diagnosis C Diff Discharge Data Allergies Allergy/AdvReac Type Severity Reaction Status Date / Time metoclopramide [From Reglan] Allergy Severe TONGUE Verified 08/04/23 23:34 SWELLS, RESTLESSNESS tramadol AdvReac Intermediate COLD Verified 08/04/23 23:34 SWEATS, AGITATION, BLURRED VISION Consultations 08/11/23 21:09 ED Decision to Admit Stat 08/11/23 22:47 Consult Gastroenterology Routine Ordered Studies 08/11/23 14:48 CT abd pelvis IV con only Stat Hospital Course (1) Bright red rectal bleeding: #Clostridium difficile infection -SIRS positive on admission with febrile illness and leukocytosis -BCx NGTD -GI PCR negative except for C difficile -Received cefepime + Zosyn in ER, discontinued after positive test and now on oral vancomycin - continue cholestyramine with hopes it will help with diarrhea, will also add Metamucil; will plan to wean as an outpatient as tolerated - plan for total of 4 weeks oral vancomycin 125mg QID - will need prophylactic vancomycin with if need for other antibiotics for the next 6 months #Hemorrhoids/Anal Fissure - continue topical lidocaine, topical nitro until improvement and f/u with PCP #Acute hematochezia -resolved -CT A/P: no obvious sites of bleeding -IVF, Protonix BID -GI consulted -treat C. diff infection -outpatient colonoscopy once infection resolved #Anemia -multifactorial due to iron deficiency, Kira's, and acute blood loss as above -Hgb lowest at 7.1 08/14 s/p 1 unit PRBC; stable at 8.7 -recommend supplementing iron once infection treated - repeat CBC at PCP f/u - outpatient colonoscopy #Leukocytosis -Marked leukocytosis, trending downwards -Likely due to C difficile infection though this may also be secondary to COVID #Urinary tract infection -Has had ongoing UTI over past month though symptoms have now resolved -UA on admission appearing grossly infected, culture NGTD - no abx indicated at this time #Abdominal lymphadenopathy -CT A/P: progressively enlarging R external iliac and inguinal lymphadenopathy - more likely reactive to underlying process -Repeat CT in 3-6 months as outpatient #Kira's Granulomatosis -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 Hold for now in setting of infection. -Likely not in acute flare - hold methotrexate, if doing well next week at PCP f/u can resume #COVID -Tested positive 08/04/2023 -largely asymptomatic (2) Iliac lymphadenopathy: (3) Inguinal lymphadenopathy: (4) COVID-19: (5) UTI (urinary tract infection): (6) Fever: (7) C. difficile diarrhea: Total Time Total Time Spent Total Time Spent (In Minutes): <30 Discharge Plan Discharge Items Patient Disposition: Home - Self-Care Reason For Visit: ABDOMINAL PAIN, FEVER Discharge Diagnosis: C diff Activity: Per Instructions section Non-emergency contact: Primary Care Provider Call non-emergency contact if: you have any medication questions and your symptoms worsen Follow-up/Referrals: [facility] [Primary Care Provider] - 08/25/23 10:40 am (Dr. Castillo ) Diet: Regular Addtl Attending Provider Instructions: You were admitted with a c diff infection. We treated you with oral vancomycin. We will send you with a prescription to take every 6 hours for a total of 4 weeks. Next dose is due at 6pm. I sent 2 creams for the anal fissure/hemorrhoids to the pharmacy. Use the lidocaine as needed and the nitroglycerin paste twice a day until your follow up with [facility] next week. A prescription for cholestyramine, for the diarrhea was also sent to the pharmacy and you can also use Metamucil over the counter to help. It is reasonable to try to wean these down as tolerated. If you have another infection that requires antibiotics in the next 6 months, you should start prophylactic vancomycin to avoid recurrence of c diff infection. Your blood count was a little low, so you should continue to supplement with B12, folic acid and iron and should have it repeated when your are seen in the office next week. Hold you methotrexate until your follow up with [facility] next week. We got you an appointment with the [facility] office for 08/26 at 2:05pm with Dr. Mills if you need change this appointemnt please call [phone], the office is located at the [facility] [facility] [address]. Pending Studies at Discharge: No Stand-Alone Forms: My [facility], Smoking Cessation Medications and DC Order Prescriptions: New cyanocobalamin (vitamin B-12) 1,000 mcg capsule 1,000 mcg PO DAILY Qty: 30 0RF vancomycin 125 mg capsule 125 mg PO Q6H 21 Days Qty: 84 0RF lidocaine [Anecream] 4 % Cream 1 applic EXT Q6H PRN (Reason: pain) 30 Days Qty: 15 2RF cholestyramine-aspartame [Prevalite] 4 gram Powder In Packet 1 ea PO BID@0500,1700 30 Days Qty: 60 0RF ferrous gluconate 324 mg (38 mg iron) Tablet 324 mg PO QAM 30 Days Qty: 30 0RF Nitroglycerin 0.2% 1 tube ointment See Rx Instructions .ROUTE .COMPLEX Qty: 1 0RF Rx Instructions: Make 1/2 strength to 0.2%; rub pea-sized bead of ointment to rectal area three times a day; 1-30g tube Continued folic acid 1 mg Tablet 1 mg PO DAILY ergocalciferol (vitamin D2) [Vitamin D2] 1,250 mcg (50,000 unit) Capsule 1,250 mcg PO WK Rx Instructions: FRIDAYS Held methotrexate (PF) 15 mg/0.3 mL Auto-Injector 15 mg SUBCUT WK Hold Instructions: Until pcp follow up Rx Instructions: TAKES ON FRIDAYS Discontinued amoxicillin-pot clavulanate 875-125 mg tablet 1 tab PO BID 10 Days Qty: 20 0RF Discharge Orders: Discharge Order (Routine); Ordered 08/18/23 Ordered By: Deanne Schulz/Other Patient Handouts: Lymphadenopathy Admission Data Admit Date/Time: 08/11/23 22:04 Attending Provider: Sergio,Galen R Admit Provider: Dre Choi Primary Care Provider: [facility] Other Providers: Cristiano Zimmerman; Frederick Palacios Other Interventions: Discharge Summary Assessment (RN) Last Done: 08/18/23 15:52 Supervising Physician Co-Signing Physician Notes I personally examined the patient and verified all marrero points of history and exam, discussed case, and agree with decision making with Dr Harp Slowly feeling better. Eating better. In discussion of plans moving forward, patient does feel well enough to go home. Vitals noted, in general she is awake and alert and in no distress. Breathing unlabored no accessory muscle use good effort. Skin shows no rashes no pallor or icterus. Neuro without focal deficits. Rectal exam done by resident physician for patient modesty purposessee her documentation. IMPRESSION & PLAN C. difficile infection with sepsis POA Continue oral vancomycin, sepsis improving, Overall improving -added cholestyramine and Metamucil to try to hasten symptom improvement, Encouraged p.o. intakeimproving - rectal fissure and prolapsed hemorrhoids as cause of painongoing management -outpt colonoscopy -Extensive discussion with patient on recovery, risk of recurrence, infection prevention for others, secondary prevention should she need antibiotics at all in the near future, and follow-up. 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 Anemia, suspect iron deficiency -Oral iron supplementation, also was borderline on [id number] B12 supplementation -transfused 1 unit prbc earlier this admission due to low counts/symptoms -continue to follow DVT proph -ambulation Additional per resident documentation
--- NOTE | 2023-08-18 16:15 | Billing Data ---
Date of Service August 18, 2023 Coding Level of Care Code 76162 IN/OBS DISCH 30 MIN/LESS
== END 2023-08-18 18:33 | disposition home or self-care (01) | DRG 871 ==
LOC: ED 14:09 → SUATTDRO 22:04 → 2S 22:04 → 3E 08-15 21:10

== ENCOUNTER 2023-08-25 06:15 | Inpatient (IN) ==
--- NOTE | 2023-08-25 06:57 | Emergency Department Note ---
Impression & Plan AMS (altered mental status), Chest pain, Hypotension, Respiratory alkalosis, Dehydration, Abnormal EKG ED Provider Note NAME: MEGAN HERNANDEZ AGE: 28 SEX: F : 1995 ARRIVES VIA: Walk-In INFORMANT: Patient, the patient's significant other ED PROVIDER(S): Nixon Dinh DO CHIEF COMPLAINT: Abdominal pain HPI: The patient is a 28-year-old female who presented to the emergency department through triage for an evaluation of abdominal pain. The patient had multiple complaints including abdominal pain difficulty breathing chest pain as well as headache. According to her significant other she has been very confused and not acting herself especially this morning. The patient was discharged to our facility a few weeks ago for C. difficile colitis. The patient apparently has been compliant with her outpatient medications. She also has a history of anemia. Her last menstrual period was only recently but it was normal timing for her. The patient was hypotensive and brought directly back to her room. ROS: See above HPI for pertinent positives & negatives. A total of 10 systems reviewed and were otherwise negative. PAST MEDICAL HISTORY: See Below PAST SURGICAL HISTORY: See Below FAMILY HISTORY: See Below SOCIAL HISTORY: See Below HOME MEDICATIONS: See Below ALLERGIES: See Below VITALS: See Below PHYSICAL EXAMINATION: GENERAL: The patient is awake and alert. She is very anxious. EYES: The conjunctivae are clear. The pupils are round and reactive. EARS, NOSE, MOUTH AND THROAT: The nose is without any evidence of any deformity. Mucous membranes are moist. Tongue is midline. NECK: The neck is nontender and supple. RESPIRATORY: Hyperventilation was noted. Lung sounds were clear bilaterally. CARDIOVASCULAR: Regular rate and rhythm noted there no murmurs rubs or gallops normal S1 normal S2. GASTROINTESTINAL: The abdomen is mildly distended and diffusely tender. There is no specific guarding rigidity. MUSCULOSKELETAL/EXTREMITIES: There is no evidence of gross deformity full range of motion is noted in the hips and shoulders. SKIN: There is no obvious evidence of any rash. There are no petechiae, pallor or cyanosis noted. NEUROLOGIC: Patient is awake alert and oriented x3. Strength is symmetric. MEDICAL DECISION MAKING: The patient is a 28-year-old female who presented to the emergency department with her significant other. The patient has a history of recently diagnosed C. difficile. The patient also reportedly had COVID-19. The patient presented to the emergency department with multiple complaints. She was very difficult to evaluate. She kept talking about not feeling well but was very vague with her symptoms. The patient had difficulty with obtaining IV access. Ultimately a small peripheral access was obtained. This change some of the radiographic studies that we wanted to order. The patient was treated with IV fluids as well as Ativan in the emergency department. She initially showed signs of hypotension but repeat blood pressure checks were reassuring. I discussed the patient's laboratory and radiographic studies with her and her significant other. I also discussed her condition with the on-call [facility]. They have agreed to evaluate the patient in the emergency department for further management and disposition. Triage Nursing notes reviewed. Prior medical records reviewed Vital Signs: reviewed and remarkable for no significant abnormalities Differential diagnosis: Etiologies such as appendicitis, diverticulitis, obstruction, inflammatory bowel disease, renal colic, PUD, biliary pathology, pancreatitis, mesenteric ischemia, aortic pathology, infections, genitourinary, UTI, perforated viscus, as well as others were entertained. ER treatment provided: See below Diagnostics interpreted by me: ECG: EKG was obtained in the emergency department. My interpretation is normal sinus rhythm at 92 bpm. There is no ectopy. There is no acute ST segment abnormalities noted. Diffuse T wave inversions were noted. No previous tracing was available. Cardiac Monitoring: An order was placed for continuous cardiac monitoring. The monitor shows a rate of 82 bpm with sinus rhythm. Laboratory studies: As stated above and show below. Imaging studies: See below. Radiographic imaging was reviewed by myself Consultation(s): I discussed his case with Marc [facility] Past Med/Surg History Social History Smoking Status: Never smoker Second Hand Exposure: No; Do You Dip or Chew Tobacco: No; Hx Alcohol Use: Yes Alcohol type: hard liquor Hx Substance Use: No Preferred Language: Ethiopian Communication Ability: Effective [employer] Required: No Beliefs That Will Affect Care: None Current Living Situation: Other Current Living Situation Comment: lives with fiance Feels Safe at Home: Yes Assistive Devices: None Allergies Allergies Allergy/AdvReac Type Severity Reaction Status Date / Time metoclopramide [From Reglan] Allergy Severe TONGUE Verified 08/25/23 09:59 SWELLS, RESTLESSNESS tramadol AdvReac Intermediate COLD Verified 08/25/23 09:59 SWEATS, AGITATION, BLURRED VISION Home Meds Home Medications Medication Instructions Recorded Confirmed ergocalciferol (vitamin D2) 1,250 1,250 mcg PO WK 08/04/23 08/25/23 mcg (50,000 unit) capsule (Vitamin D2) folic acid 1 mg tablet 1 mg PO DAILY 08/04/23 08/25/23 methotrexate (PF) 15 mg/0.3 mL 15 mg subcut WK 08/04/23 08/25/23 subcutaneous auto-injector cholestyramine-aspartame 4 gram 0 ea PO BID@0500,1700 08/25/23 08/25/23 oral powder for susp in a packet (Prevalite) Previous Rx's Medication Instructions Recorded cyanocobalamin (vitamin B-12) 1,000 mcg PO DAILY #30 caps 08/17/23 1,000 mcg capsule Nitroglycerin 0.2% 1 tube ointment See Rx Instructions .Route 08/18/23 .COMPLEX #1 tube ferrous gluconate 324 mg (38 mg 324 mg PO QAM 30 days #30 tabs 08/18/23 iron) tablet lidocaine 4 % topical cream 1 applic EXT Q6H PRN pain 30 days 08/18/23 (Anecream) #15 grams vancomycin 125 mg capsule 125 mg PO Q6H 21 days #84 caps 08/18/23 Results & Data (ED) Vital Signs Vital Signs - 24 hr 08/25/23 06:24 08/25/23 06:35 08/25/23 08:05 Temperature 37.0 C Temperature Source Oral Pulse Rate 112 H 101 H Pulse Rate [Right Finger] 100 H Pulse Rhythm Respiratory Rate 40 H 20 Respiratory Depth Normal Respiratory Pattern Tachypnea Blood Pressure 70/44 L Blood Pressure [Right Arm] 111/59 L Blood Pressure Mean 52 Blood Pressure Mean [Right Arm] 76 Pulse Oximetry 98 100 Oxygen Delivery Method Room Air Room Air Sepsis Recent Fever Within 48 Hours No Sepsis New/Unexplained Change in Mental Status No Sepsis Action Taken by Nursing Physician Notified 08/25/23 08:05 08/25/23 10:18 Temperature Temperature Source Pulse Rate 92 H Pulse Rate [Right Finger] 97 H Pulse Rhythm Regular Respiratory Rate 24 24 Respiratory Depth Normal Respiratory Pattern Blood Pressure Blood Pressure [Right Arm] 107/76 Blood Pressure Mean Blood Pressure Mean [Right Arm] 86 Pulse Oximetry 100 100 Oxygen Delivery Method Room Air Room Air Sepsis Recent Fever Within 48 Hours Sepsis New/Unexplained Change in Mental Status Sepsis Action Taken by Long-Term Medications Current Medication List: was personally reviewed by me Laboratory Data Attestation: I reviewed the patient's lab results. 08/25/23 07:43 08/25/23 07:43 Lab Results 08/25/23 08/25/23 08/25/23 Range/Units 06:54 07:43 09:59 WBC 12.33 H (4.8-10.8) K/ul RBC 4.66 (4.20-5.40) M/uL Hgb 10.6 L (12.0-16.0) g/dl POC Hgb 13.3 (12.0-16.0) g/dl Hct 33.9 L (37.0-47.0) % POC Hct 39 (37-47) % MCV 72.7 L (80.0-100.0) fL MCH 22.7 L (25.0-34.0) pg MCHC 31.3 L (32.0-36.0) g/dL RDW Std Deviation 57.2 H (36.4-46.3) fL RDW Coeff of Erika 22.7 H (11.5-14.5) % Plt Count 681 H (130-400) K/uL MPV 10.5 (9.4-12.4) fL Immature Gran % (Auto) 0.6 % Neut % (Auto) 77.6 % Lymph % (Auto) 10.9 % [place] % (Auto) 9.9 % Eos % (Auto) 0.7 % Baso % (Auto) 0.3 % Neut # (Auto) 9.56 H (1.40-6.50) K/uL Lymph # (Auto) 1.35 (1.20-3.40) K/uL [place] # (Auto) 1.22 H (0.11-0.59) K/uL Eos # (Auto) 0.09 (0.00-0.50) K/uL Baso # (Auto) 0.04 (0.00-0.20) K/uL Immature Gran # (Auto) 0.07 (0.01-0.20) K/uL Anisocytosis Present PT Cancelled INR Cancelled APTT Cancelled PTT Ratio Cancelled D-Dimer Cancelled VBG pH (7.36-7.41) VBG pCO2 (38-50) mmHg VBG pO2 mmHg VBG HCO3 mmol/L VBG O2 Saturation % VBG Base Excess mEq/L POC Sodium 136 (135-144) mmol/L Sodium 139 (136-145) mmol/L POC Potassium 4.5 (3.3-5.0) mmol/L Potassium 3.8 (3.5-5.1) mmol/L POC Chloride 105 (101-112) mmol/L Chloride 103 (98-107) mmol/L Carbon Dioxide 23 (21-32) mmol/L POC Total CO2 22 L (24-31) mmol/L Anion Gap 13 H (3-11) POC Anion Gap 14.0 L (16-25) mmol/L POC BUN 4 L (7-18) mg/dl BUN 5 L (6-23) mg/dl Creatinine 0.67 (0.6-1.2) mg/dl POC Creatinine 0.6 (0.6-1.3) mg/dl Est Cr Clr Drug Dosing 125.2 ml/min Est GFR ( Amer) 139.6 ml/min Est GFR (Non-Af Amer) 120.5 ml/min BUN/Creatinine Ratio 7.5 L (10-20) Glucose 105 H (70-99(Fasting)) mg/dl POC Glucose (other) 112 H (70-99) mg/dl Lactate 2.6 H* (0.4-2.0) mmol/L Calcium 9.7 (8.6-10.3) mg/dl POC Ioniz Calcium Onofre 0.99 L (1.12-1.32) mmol/l Magnesium 1.9 (1.7-2.4) mg/dl Total Bilirubin 0.4 (0.2-1.0) mg/dl Direct Bilirubin 0.1 (0-0.2) mg/dl AST 19 (13-39) U/L ALT 19 (7-52) U/L Alkaline Phosphatase 80 (34-104) U/L Ammonia (18-72) umol/L Troponin I High Sens 4.9 (0-14) pg/ml Total Protein 7.7 (6.0-8.3) gm/dl Albumin 4.2 (3.4-5.0) gm/dl Procalcitonin 0.08 (0-0.5) ng/ml TSH (0.300-4.500) uIu/ml HCG, Qual Negative (Negative) Ethyl Alcohol mg/dL (<10.0) mg/dl Adenovirus (PCR) Not Detected (NotDetected) B. pertussis DNA (PCR) Not Detected (NotDetected) B.parapertussis DNA PCR Not Detected (NotDetected) C. pneumoniae DNA (PCR) Not Detected (NotDetected) Coronavirus OC43 (PCR) Not Detected (NotDetected) Coronavirus HKU1 (PCR) Not Detected (NotDetected) Coronavirus 229E (PCR) Not Detected (NotDetected) SARS-CoV-2 (PCR) Not Detected (NotDetected) Coronavirus NL63 (PCR) Not Detected (NotDetected) Human Metapneumovir PCR Not Detected (NotDetected) Influenza Type A (PCR) Not Detected (NotDetected) Influenza Type B (PCR) Not Detected (NotDetected) M. pneumoniae (PCR) Not Detected (NotDetected) Parainfluenza 1 (PCR) Not Detected (NotDetected) Parainfluenza 2 (PCR) Not Detected (NotDetected) Parainfluenza 3 (PCR) Not Detected (NotDetected) Parainfluenza 4 (PCR) Not Detected (NotDetected) RSV (PCR) DETECTED A* (NotDetected) Entero/Rhino (PCR) Not Detected (NotDetected) 08/25/23 Range/Units 10:16 WBC (4.8-10.8) K/ul RBC (4.20-5.40) M/uL Hgb (12.0-16.0) g/dl POC Hgb (12.0-16.0) g/dl Hct (37.0-47.0) % POC Hct (37-47) % MCV (80.0-100.0) fL MCH (25.0-34.0) pg MCHC (32.0-36.0) g/dL RDW Std Deviation (36.4-46.3) fL RDW Coeff of Erika (11.5-14.5) % Plt Count (130-400) K/uL MPV (9.4-12.4) fL Immature Gran % (Auto) % Neut % (Auto) % Lymph % (Auto) % [place] % (Auto) % Eos % (Auto) % Baso % (Auto) % Neut # (Auto) (1.40-6.50) K/uL Lymph # (Auto) (1.20-3.40) K/uL [place] # (Auto) (0.11-0.59) K/uL Eos # (Auto) (0.00-0.50) K/uL Baso # (Auto) (0.00-0.20) K/uL Immature Gran # (Auto) (0.01-0.20) K/uL Anisocytosis PT 11.4 INR 1.0 APTT 21 PTT Ratio 0.7 D-Dimer 1500 H* VBG pH 7.54 H (7.36-7.41) VBG pCO2 24 L (38-50) mmHg VBG pO2 114 mmHg VBG HCO3 21 mmol/L VBG O2 Saturation 99.1 % VBG Base Excess -1.0 mEq/L POC Sodium (135-144) mmol/L Sodium (136-145) mmol/L POC Potassium (3.3-5.0) mmol/L Potassium (3.5-5.1) mmol/L POC Chloride (101-112) mmol/L Chloride (98-107) mmol/L Carbon Dioxide (21-32) mmol/L POC Total CO2 (24-31) mmol/L Anion Gap (3-11) POC Anion Gap (16-25) mmol/L POC BUN (7-18) mg/dl BUN (6-23) mg/dl Creatinine (0.6-1.2) mg/dl POC Creatinine (0.6-1.3) mg/dl Est Cr Clr Drug Dosing ml/min Est GFR ( Amer) ml/min Est GFR (Non-Af Amer) ml/min BUN/Creatinine Ratio (10-20) Glucose (70-99(Fasting)) mg/dl POC Glucose (other) (70-99) mg/dl Lactate 1.4 (0.4-2.0) mmol/L Calcium (8.6-10.3) mg/dl POC Ioniz Calcium Onofre (1.12-1.32) mmol/l Magnesium (1.7-2.4) mg/dl Total Bilirubin (0.2-1.0) mg/dl Direct Bilirubin (0-0.2) mg/dl AST (13-39) U/L ALT (7-52) U/L Alkaline Phosphatase (34-104) U/L Ammonia 20.0 (18-72) umol/L Troponin I High Sens (0-14) pg/ml Total Protein (6.0-8.3) gm/dl Albumin (3.4-5.0) gm/dl Procalcitonin (0-0.5) ng/ml TSH 1.876 (0.300-4.500) uIu/ml HCG, Qual (Negative) Ethyl Alcohol mg/dL < 10.0 (<10.0) mg/dl Adenovirus (PCR) (NotDetected) B. pertussis DNA (PCR) (NotDetected) B.parapertussis DNA PCR (NotDetected) C. pneumoniae DNA (PCR) (NotDetected) Coronavirus OC43 (PCR) (NotDetected) Coronavirus HKU1 (PCR) (NotDetected) Coronavirus 229E (PCR) (NotDetected) SARS-CoV-2 (PCR) (NotDetected) Coronavirus NL63 (PCR) (NotDetected) Human Metapneumovir PCR (NotDetected) Influenza Type A (PCR) (NotDetected) Influenza Type B (PCR) (NotDetected) M. pneumoniae (PCR) (NotDetected) Parainfluenza 1 (PCR) (NotDetected) Parainfluenza 2 (PCR) (NotDetected) Parainfluenza 3 (PCR) (NotDetected) Parainfluenza 4 (PCR) (NotDetected) RSV (PCR) (NotDetected) Entero/Rhino (PCR) (NotDetected) Administered Medications Vancomycin HCl (Vancomycin Hcl 125 Mg/2.5ml Soln) 125 mg PO Q6H KALEB Stop: 09/04/23 13:59 Last Admin: 08/25/23 13:14 Dose: 125 mg Documented By: ANG Discontinued Medications Sodium Chloride (Nss) 1,000 mls @ 999 mls/hr IV .Q1H1M ONE Stop: 08/25/23 07:34 Last Infusion: 08/25/23 10:53 Dose: Infused Documented By: Admin: 08/25/23 07:57 Dose: 999 mls/hr Documented By: KARMEN Lactated Ringer's (Lr) 1,000 mls @ 999 mls/hr IV .Q1H1M ONE Stop: 08/25/23 11:45 Last Infusion: 08/25/23 12:01 Dose: Infused Documented By: Admin: 08/25/23 10:53 Dose: 999 mls/hr Documented By: KARMEN Acetaminophen (Ofirmev) 1,000 mg in 100 mls @ 400 mls/hr IV NOW STA Stop: 08/25/23 10:58 Last Infusion: 08/25/23 12:43 Dose: Infused Documented By: Admin: 08/25/23 11:49 Dose: 400 mls/hr Documented By: KARMEN Calcium Gluconate () 1,000 mg in 60 mls @ 240 mls/hr IV NOW STA Stop: 08/25/23 10:59 Last Infusion: 08/25/23 11:49 Dose: Infused Documented By: Admin: 08/25/23 11:14 Dose: 240 mls/hr Documented By: KARMEN Lorazepam 2 mg/ Syringe 2 mls @ 2 mls/min IV ONE ONE Stop: 08/25/23 13:01 Last Admin: 08/25/23 13:10 Dose: Not Given Documented By: KARMEN Ioversol (Optiray 320 500ml) 94 ml IV ONCE ONE Stop: 08/25/23 08:39 Last Admin: 08/25/23 08:40 Dose: 94 ml Documented By: GUILLAUME Lorazepam (Lorazepam 1 Mg/1 Ml Syr Ed Inj Use) 0.5 mg IV ONE STA Stop: 08/25/23 06:40 Last Admin: 08/25/23 07:57 Dose: 0.5 mg Documented By: KARMEN Lorazepam (Lorazepam 1 Mg Tab) 1 mg PO NOW STA Stop: 08/25/23 07:13 Last Admin: 08/25/23 07:36 Dose: 1 mg Documented By: KARMEN Olanzapine (Olanzapine Zydis 10 Mg Orally Dis. Tab) 10 mg PO NOW STA Stop: 08/25/23 10:38 Last Admin: 08/25/23 11:15 Dose: Not Given Documented By: KARMEN Olanzapine (Olanzapine Zydis 5 Mg Orally Dis. Tab) 5 mg PO NOW STA Stop: 08/25/23 10:38 Last Admin: 08/25/23 11:14 Dose: 5 mg Documented By: KARMEN Ondansetron HCl (Ondansetron Inj 2 Mg/Ml 2 Ml Vial) 4 mg IV NOW STA Stop: 08/25/23 06:38 Last Admin: 08/25/23 07:57 Dose: 4 mg Documented By: KARMEN Pantoprazole Sodium (Pantoprazole 40 Mg Tab) 40 mg PO NOW STA Stop: 08/25/23 10:49 Last Admin: 08/25/23 11:14 Dose: 40 mg Documented By: KARMEN Imaging Data Attestation: I personally reviewed and interpreted this imaging study as follows: My Impression: 1 view chest x-ray was obtained in the emergency department. My interpretation is no free air or definite infiltrate, final report below. CT of the brain was obtained in the emergency department. My interpretation is no intracranial hemorrhage or mass effect, final report below Radiologist's Impression: Chest X-Ray 08/25/23 06:34 XR chest 1V portable HISTORY: 28 years-old Female Sepsis acute sepsis COMPARISON: 08/13/2023 TECHNIQUE: AP view of the chest FINDINGS: Cardiomediastinal and hilar silhouettes are within normal limits. 9 mm nodular density projected over the right upper lung is likely artifactual. No pneumothorax, pleural effusion or airspace consolidation. Bones appear grossly intact. IMPRESSION: No acute process. ACT 112: Negative or not required by law. The above report was generated using voice recognition software. It may contain grammatical, syntax or spelling errors. Electronically signed by: Kal Gonzalez M.D. 08/25/2023 8:36 AM Abdomen/Pelvis CT 08/25/23 06:37 CT SCAN OF THE ABDOMEN AND PELVIS WITH IV CONTRAST CLINICAL HISTORY: Generalized abdominal pain. Change in mental status. COMPARISON STUDY: Abdominal CT dated 08/11/2023. TECHNIQUE: Following the IV administration of 94 cc of Optiray 320, CT scan of the abdomen and pelvis is performed from the lung bases to the proximal femora. Images are reviewed in the axial, sagittal, and coronal planes. IV contrast was administered without complication. A dose lowering technique was utilized adhering to the principles of ALARA. The examination is degraded by motion artifact. CT DOSE: 1935.7 mGy.cm FINDINGS: Lung bases: The heart is normal in size noting trace pericardial effusion. The lung bases are clear. Liver: The contrast-enhanced liver is normal in size, contour, and attenuation. There is no intrahepatic biliary ductal dilatation. The hepatic veins and portal veins are patent. Gallbladder: Unremarkable. Spleen: Normal in size and attenuation. Pancreas: Unremarkable. Adrenal glands: Unremarkable. Kidneys: The contrast enhanced kidneys are normal in size and without hydronephrosis. The kidneys enhance symmetrically. Abdominal vasculature: The abdominal aorta is normal in course and caliber. Bowel: There is rectosigmoid fecal retention. No bowel obstruction is seen. The appendix is well-visualized and normal. Peritoneum: No intraperitoneal free air is identified. There is trace free fluid in the right lower quadrant. There is a fat and fluid containing umbilical hernia. Lymphadenopathy: Right inguinal lymphadenopathy is similar to previous. A right inguinal node with surrounding infiltration is seen on axial image #295 and measures 2.3 x 1.8 cm. A prominent right pelvic sidewall that is decreased in size from 08/11/2023. This measures up to 5 mm in short axis. No left inguinal lymphadenopathy is identified. There is no abdominal, retroperitoneal, or mesenteric lymphadenopathy. Pelvic viscera: The bladder is distended but otherwise normal in appearance. Uterus and adnexa are normal as visualized noting bilateral ovarian follicles. Surgical clips are noted in the left groin. Skeletal structures: No lytic or blastic lesions are seen. IMPRESSION: 1. Right inguinal lymphadenopathy with surrounding infiltration has not significantly changed from 08/11/2023 joint. Correlate clinically. 2. No additional infectious or inflammatory findings are suggested in the abdomen or pelvis. 3. Trace nonspecific free fluid is noted in the right lower quadrant. 4. Rectosigmoid fecal retention. 5. Additional findings as above. ACT 112: Negative or not required by law. Electronically signed by: Ford Flores M.D. 08/25/2023 9:[address] 08/25/23 06:37 CT SCAN OF THE BRAIN WITHOUT IV CONTRAST CLINICAL HISTORY: Change in mental status. COMPARISON STUDY: No priors. TECHNIQUE: Unenhanced axial CT scan of the brain is performed from the vertex to the skull base. A dose lowering technique was utilized adhering to the principles of ALARA. FINDINGS: Brain parenchyma: The brain parenchyma is normal in appearance. There is no hemorrhage, mass effect, or evidence of acute territorial ischemia by CT criteria. Poe-white matter differentiation is preserved. No extra-axial fluid collection is seen. Ventricles, sulci, cisterns: Normal in configuration. Intracranial vasculature: The visualized intracranial vasculature at the skull base is normal in appearance. Calvarium: Unremarkable. Sinuses and mastoids: The visualized paranasal sinuses are clear. The mastoid air cells are well pneumatized. Orbits: The bony orbits are grossly intact. IMPRESSION: No acute intracranial abnormality. ACT 112: Negative or not required by law. Electronically signed by: Ford Flores M.D. 08/25/2023 9:[address] 08/25/23 07:[address] WITH CONTRAST HISTORY: Acute shortness of breath with nausea and anemia sob TECHNIQUE: Multiaxial CT images of the chest were performed following the IV administration of 94 cc of Optiray. A dose lowering technique was utilized adhering to the principles of ALARA. COMPARISON: CT abdomen and pelvis of same day FINDINGS: Study is degraded by respiratory motion. Unremarkable thyroid. Heart is normal in size with trace pericardial effusion. Unremarkable thoracic aorta and pulmonary artery which is suboptimally visualized. No pneumothorax, pleural effusion, or pulmonary edema. Subsegmental tree-in-bud nodules within the lateral segment right middle lobe. There is a linear focus of subsegmental probable scarring within the apical posterior segment left upper lobe at the lesser extent within the right lower lobe. Central airways are patent. Fluid-filled distended stomach. No acute upper abdominal abnormality. Subcentimeter right breast calcifications. 1.6 cm circumscribed mass of the upper outer quadrant left breast on image 95 series 8. No acute fracture. IMPRESSION: 1. Study degraded by respiratory motion artifact. 2. Subsegmental tree-in-bud nodules of the right lung base compatible with an infectious or inflammatory bronchiolitis. 3. Indeterminate 1.6 cm circumscribed mass of the upper outer quadrant left breast. Correlation with nonemergent follow-up breast ultrasound recommended. 4. Please refer to the CT abdomen and pelvis study of same day for additional findings. ACT 112: Negative or not required by law. Electronically signed by: Kal Gonzalez M.D. 08/25/2023 9:35 AM Discharge Plan Visit Data Chief Complaint: Flu Like Symptoms Stated Complaint: COUGH,NAUSEA,CHILLS,SOB ED Provider: Nixon Dinh Discharge Problem: AMS (altered mental status), Chest pain, Hypotension, Respiratory alkalosis, Dehydration, Abnormal EKG Discharge Instructions Interventions: ED Discharge Assessment Last Done: 08/25/23 12:24 Discharge Problem: AMS (altered mental status) Qualifiers: Altered mental status type: unspecified Qualified Code(s): R41.82 - Altered mental status, unspecified Chest pain Qualifiers: Chest pain type: unspecified Qualified Code(s): R07.9 - Chest pain, unspecified Hypotension Qualifiers: Hypotension type: unspecified hypotension type Qualified Code(s): I95.9 - Hypotension, unspecified
[2023-08-25] MEDS: LORazepam 1 MG TAB PO STA (07:36)
[2023-08-25] MEDS: ONDANSETRON INJ 2 MG/ML 2 ML VIAL IV STA (07:57)
[2023-08-25] MEDS: SODIUM CHLORIDE 0.9% 1,000 ML IV ONE (07:57)
[2023-08-25] MEDS: LORazepam 1 MG/1 ML SYR ED Inj Use IV STA (07:57)
[2023-08-25 08:04] LABS: Basophils # (auto) 0.04 K/uL (0.00-0.20); Basophils % (auto) 0.3 %; Eosinophils # (auto) 0.09 K/uL (0.00-0.50); Eosinophils % (auto) 0.7 %; Hematocrit (blood only) 33.9 % (37.0-47.0); Hemoglobin 10.6 g/dl (12.0-16.0); Immature Granulocytes # (auto) 0.07 K/uL (0.01-0.20); Immature Granulocytes % (auto) 0.6 %; Lymphocytes # (auto) 1.35 K/uL (1.20-3.40); Lymphocytes % (auto) 10.9 %; Mean Corpuscular Hemoglobin 22.7 pg (25.0-34.0); Mean Corpuscular Hgb Conc 31.3 g/dL (32.0-36.0); Mean Corpuscular Volume 72.7 fL (80.0-100.0); Mean Platelet Volume 10.5 fL (9.4-12.4); Monocytes # (auto) 1.22 K/uL (0.11-0.59); Monocytes % (auto) 9.9 %; Neutrophils # (auto) 9.56 K/uL (1.40-6.50); Neutrophils % (auto) 77.6 %; Platelet Count 681 K/uL (130-400); RDW Coefficient of Variation 22.7 % (11.5-14.5); RDW Standard Deviation 57.2 fL (36.4-46.3); Red Blood Count 4.66 M/uL (4.20-5.40); White Blood Count 12.33 K/ul (4.8-10.8)
[2023-08-25 08:21] LABS: Anisocytosis Present
[2023-08-25 08:23] LABS: Albumin Level 4.2 gm/dl (3.4-5.0); BUN Creatinine Ratio 7.5 (10-20); Bilirubin Direct 0.1 mg/dl (0-0.2); Bilirubin,Total 0.4 mg/dl (0.2-1.0); Calcium 9.7 mg/dl (8.6-10.3); Creatinine Clr Calc Pharmacy 125.2 ml/min; Est GFR (African American) 139.6 ml/min; Est GFR (Non-African American) 120.5 ml/min; Magnesium 1.9 mg/dl (1.7-2.4); Potassium 3.8 mmol/L (3.5-5.1); Total Protein 7.7 gm/dl (6.0-8.3)
[2023-08-25 08:29] LABS: Troponin I High Sensitivity 4.9 pg/ml (0-14)
--- NOTE | 2023-08-25 08:37 | XRay Report ---
XR chest 1V portable HISTORY: 28 years-old Female Sepsis acute sepsis COMPARISON: 08/13/2023 TECHNIQUE: AP view of the chest FINDINGS: Cardiomediastinal and hilar silhouettes are within normal limits. 9 mm nodular density projected over the right upper lung is likely artifactual. No pneumothorax, pleural effusion or airspace consolidat ion. Bones appear grossly intact. IMPRESSION: No acute process. ACT 112: Negative or not required by law. The above report was generated using voice recognition software. It may contain grammatical, syntax o r spelling errors. Electronically signed by: Kal Gonzalez M.D. 08/25/2023 8:36 AM
[2023-08-25] MEDS: OPTIRAY 320 500ml IV ONE (08:40)
[2023-08-25 08:53] LABS: Pregnancy Test, Serum Negative (Negative)
--- NOTE | 2023-08-25 09:15 | CT Scan Report ---
CT SCAN OF THE BRAIN WITHOUT IV CONTRAST CLINICAL HISTORY: Change in mental status. COMPARISON STUDY: No priors. TECHNIQUE: Unenhanced axial CT scan of the brain is performed from the vertex to the skull base. A d ose lowering technique was utilized adhering to the principles of ALARA. FINDINGS: Brain parenchyma: The brain parenchyma is normal in appearance. There is no hemorrhage, mass effect, or evidence of acute territorial ischemia by CT criteria. Poe-white matter differentiation is preser bartolo. No extra-axial fluid collection is seen. Ventricles, sulci, cisterns: Normal in configuration. Intracranial vasculature: The visualized intracranial vasculature at the skull base is normal in appe arance. Calvarium: Unremarkable. Sinuses and mastoids: The visualized paranasal sinuses are clear. The mastoid air cells are well pneu matized. Orbits: The bony orbits are grossly intact. IMPRESSION: No acute intracranial abnormality. ACT 112: Negative or not required by law. Electronically signed by: Ford Flores M.D. 08/25/2023 9:13 AM
--- NOTE | 2023-08-25 09:35 | CT Scan Report ---
CT SCAN OF THE ABDOMEN AND PELVIS WITH IV CONTRAST CLINICAL HISTORY: Generalized abdominal pain. Change in mental status. COMPARISON STUDY: Abdominal CT dated 08/11/2023. TECHNIQUE: Following the IV administration of 94 cc of Optiray 320, CT scan of the abdomen and pelvi s is performed from the lung bases to the proximal femora. Images are reviewed in the axial, sagittal , and coronal planes. IV contrast was administered without complication. A dose lowering technique wa s utilized adhering to the principles of ALARA. The examination is degraded by motion artifact. CT DOSE: 1935.7 mGy.cm FINDINGS: Lung bases: The heart is normal in size noting trace pericardial effusion. The lung bases are clear. Liver: The contrast-enhanced liver is normal in size, contour, and attenuation. There is no intrahepa tic biliary ductal dilatation. The hepatic veins and portal veins are patent. Gallbladder: Unremarkable. Spleen: Normal in size and attenuation. Pancreas: Unremarkable. Adrenal glands: Unremarkable. Kidneys: The contrast enhanced kidneys are normal in size and without hydronephrosis. The kidneys enh ance symmetrically. Abdominal vasculature: The abdominal aorta is normal in course and caliber. Bowel: There is rectosigmoid fecal retention. No bowel obstruction is seen. The appendix is well-vis ualized and normal. Peritoneum: No intraperitoneal free air is identified. There is trace free fluid in the right lower q uadrant. There is a fat and fluid containing umbilical hernia. Lymphadenopathy: Right inguinal lymphadenopathy is similar to previous. A right inguinal node with waterman rrounding infiltration is seen on axial image #295 and measures 2.3 x 1.8 cm. A prominent right pelvi c sidewall that is decreased in size from 08/11/2023. This measures up to 5 mm in short axis. No left inguinal lymphadenopathy is identified. There is no abdominal, retroperitoneal, or mesenteric lymphad enopathy. Pelvic viscera: The bladder is distended but otherwise normal in appearance. Uterus and adnexa are no rmal as visualized noting bilateral ovarian follicles. Surgical clips are noted in the left groin. Skeletal structures: No lytic or blastic lesions are seen. IMPRESSION: 1. Right inguinal lymphadenopathy with surrounding infiltration has not significantly changed from joint. Correlate clinically. 2. No additional infectious or inflammatory findings are suggested in the abdomen or pelvis. 3. Trace nonspecific free fluid is noted in the right lower quadrant. 4. Rectosigmoid fecal retention. 5. Additional findings as above. ACT 112: Negative or not required by law. Electronically signed by: Ford Flores M.D. 08/25/2023 9:32 AM
--- NOTE | 2023-08-25 09:36 | CT Scan Report ---
CHEST CT WITH CONTRAST HISTORY: Acute shortness of breath with nausea and anemia sob TECHNIQUE: Multiaxial CT images of the chest were performed following the IV administration of 94 cc of Optiray. A dose lowering technique was utilized adhering to the principles of ALARA. COMPARISON: CT abdomen and pelvis of same day FINDINGS: Study is degraded by respiratory motion. Unremarkable thyroid. Heart is normal in size with trace pericardial effusion. Unremarkable thoracic aorta and pulmonary artery which is suboptimally v isualized. No pneumothorax, pleural effusion, or pulmonary edema. Subsegmental tree-in-bud nodules within the la teral segment right middle lobe. There is a linear focus of subsegmental probable scarring within the apical posterior segment left upper lobe at the lesser extent within the right lower lobe. Central a irways are patent. Fluid-filled distended stomach. No acute upper abdominal abnormality. Subcentimeter right breast calc ifications. 1.6 cm circumscribed mass of the upper outer quadrant left breast on image 95 series 8. N o acute fracture. IMPRESSION: 1. Study degraded by respiratory motion artifact. 2. Subsegmental tree-in-bud nodules of the right lung base compatible with an infectious or inflammat ory bronchiolitis. 3. Indeterminate 1.6 cm circumscribed mass of the upper outer quadrant left breast. Correlation with nonemergent follow-up breast ultrasound recommended. 4. Please refer to the CT abdomen and pelvis study of same day for additional findings. ACT 112: Negative or not required by law. Electronically signed by: Kal Gonzalez M.D. 08/25/2023 9:35 AM
--- NOTE | 2023-08-25 10:11 | History & Physical Report ---
Date of Service August 25, 2023 Assessment & Plan (1) AMS (altered mental status): Plan: -Admit to med/tele -Currently with stable vitals but significant distress/anxiety/agitation/intermittent confusion -Patient presented to the ED this am with her boyfriend after he woke and noticed her to not be acting herself -Since arrival to the ED the patient has been tearful, anxious, agitated, and with intermittent confusion -CT of the head/brain was negative for acute findings -She is noted to have an improving leukocytosis and Hgb since last admission -Alcohol level is negative, patient's boyfriend states that the patient has not used drugs or other cognitive altering substances -At this time her differential is broad but there is high concern for possible CHAPLAIN RESIDENT infection such as meningitis or encephalitis >Patient is 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 diff during her last admission >Noted to have signs of infectious or inflammatory bronchiolitis on CT of the chest w/con >Will follow full respiratory biofire obtained in the ED -Patient was noted to have a 1.6 cm mass on the upper, outer quadrant of the left breast on CT of the chest w/con, will monitor for signs of metastases on MRI of the brain -UA was obtained and is in process, will monitor urine drug panel obtained in the ED to rule out possible cause -Patient does not appear to have a previous hx of Psychiatric illness, but cannot rule this out on admission -At this time further workup is needed including MRI of the brain w/wo con which will be obtained when the patient is less anxious/agitated -S/P 1.5 mg IV ativan in the ED without change in her current mental status -Will give 5 mg PO ODT Zyprexa now and monitor for improvement -Will likely need to obtain an LP but will wait for MRI results first -Blood cultures were obtained in the ED, will follow -Will wait for MRI results before starting empiric treatment for encephalitis/meningitis at this time -Hold chemical DVT PPX with high risk of falling/injury -Clear liquid diet for now -AM CBC, BMP, mag (2) Breast mass: Plan: -Patient was noted to have a 1.6 cm mass on the upper, outer quadrant of the left breast on CT of the chest w/con today -Will need to speak to patient regarding this finding when she is alert and oriented -Please ensure she has a nonemergent follow-up breast ultrasound recommended scheduled prior to discharge (3) Chest pain: Plan: -Patient reports central chest discomfort but is unable to give further description -Noted to have signs of infectious/inflammatory bronchiolitis on CT of the chest w/IV con -ECG was not yet obtained in the ED due to the patient's inability to cooperate due to her severe anxiety/agitation -Will obtain ECG after giving the dose of ODT Zyprexa ordered on admission -D-Dimer obtained int he ED is elevated at 1500, unfortunately a CT chest angiogram was not obtained this am with her other imaging -She is at higher risk for possible blood clots with her recent Covid 19 infection -She is now hemodynamically stable, stable on RA, and in NSR after receiving 1L NSS in the ED >For now we will continue to monitor vitals closely and obtain BL LE venous dopplers when she is less agitated for further evaluation of possible DVT -If clinical suspicion for PE increases during her admission would recommend obtaining CTA of the chest with PE protocol -Initial high sen trop is WNL, no previous hx of CAD, low suspicion for ACS at this time but will review ECG when obtained and continue to monitor on tele -Could be due to her known infectious/inflammatory bronchiolitis on CT of the chest today, continue supportive treatment -Will give 40 mg PO pantoprazole on admission in case her symptoms are related to esophagitis/gastritis (4) Hypotension: Plan: -Noted to be hypotensive on arrival at 70/44 -Now hemodynamically stable after 1L NSS in the ED -Patient appears dehydrated on exam, her boyfriend explains that her PO intake as been poor over the past 48 hours -Will give another 1L bolus of LR on admission then will see if she can tolerate sufficient PO intake (5) Respiratory alkalosis: Plan: -Noted to be tachypneic with respirations in the 40's on arrival -VBG in the ED shows a pH of 7.54, pCO2 of 24, and pO2 WNL -Likely due to her hyperventilation noted on arrival -Respirations have improved compared to arrival, will continue to monitor -Initial lactic acidosis noted on arrival has improved after initial fluid resuscitation in the ED (6) C. difficile diarrhea: Plan: -Continue PO Vancomycin (7) Hypocalcemia: Plan: -Ionized calcium noted to be 0.99 -Will give 1gm IV calcium gluconate on admission -Monitor daily calcium for now and start workup if consistently low (8) Anemia: Plan: -Currently stable -Thought to be due to iron deficiency anemia from her hemorrhoids/anal fissures and hx of Kira's Granulomatosis -Hgb is improving -Continue ferrous gluconate (9) Anal fissure: Plan: -Has been able to have more consistent BM's since treatment last admission per boyfriend -Continue treatment for C. diff -Continue topical lidocaine and bowel regimen (10) Kira's granulomatosis: Plan: -Not active signs of bleeding -Continue to hold methotrexate for now with active infectious Plan The patient was discussed with Dr. Doe at the time of the admission Admission and Anticipated Discharge Date Admission Date: I personally saw and examined the patient. I verified all marrero points and agree with Marc Mcdonald PA-C with the following exceptions and/or additions: 28 year old female presents to the ER with altered mental state. Recent history of COVID and c. diff without altered mental state. Possibly stayed awake most of last night. Cough/cold symptoms started yesterday. Bilateral frontal headache severity 10/10 with associated neck pain and stiffness which is very unusual for her. Saying odd words today, now making sense, trying to drink from her phone. O/E Alert, orientated to person, word salad, not making sense, not able to follow neurological exam but moving all four extremities, appears to lack co- ordination. HS increased rate, regular rhythm, no murmurs, Chest CTAB, Abdo SNT, no CVA tenderness A/P Altered mental state - this appears to be way out of proportion that to her having just RSV. She is dehydrated and possibly lacking sleep but with a headache, neck stiffness there remains the possibility of meningitis/encephalitis. No fever. No illicit substances suspected. Alcohol level normal. Brain MRI. Empirically treat for meningitis/encephalitis (dexamethasone, vancomycin, ceftriaxone, acyclovir) although if LP normal these can be discontinued. RSV bronchiolitis - this explains her cough and CT findings. Supportive care only needed. History of Present Illness Chief Complaint: AMS, abd pain, chest pain Primary Care Provider: [facility] Surya is a 28 year old female with a PMH significant for recent C. diff infection (Currently on PO Vancomycin), Iron deficiency anemia, Kira's granulomatosis, and hemorrhoids with anal fissures who presented to the [facility] ED on 08/25/23 with complaints of AMS, chest pain, abd pain, and increased anxiety. She was initially noted to be hypotensive at 70/44 and tachycardic at 112, and tachypneic with respirations in the 40's. Labs were significant for an improving leukocytosis, stable Hgb, AG of 13, with bicarb WNL, lactate of 2.6, negative procal, negative Hgb, Ct of the head/brain wo con and chest xray were negative. CT of the chest w/con was read as "1. Study degraded by respiratory motion artifact. 2. Subsegmental tree-in-bud nodules of the right lung base compatible with an infectious or inflammatory bronchiolitis. 3. Indeterminate 1.6 cm circumscribed mass of the upper outer quadrant left breast. Correlation with nonemergent follow-up breast ultrasound recommended. 4. Please refer to the CT abdomen and pelvis study of same day for additional findings. Ct of the abd/pelvis w/IV con was read as "1. Right inguinal lymphadenopathy with surrounding infiltration has not significantly changed from 08/11/2023 joint. Correlate clinically. 2. No additional infectious or inflammatory findings are suggested in the abdomen or pelvis. 3. Trace nonspecific free fluid is noted in the right lower quadrant. 4. Rectosigmoid fecal retention. 5. Additional findings as above.". Prior to admission the patient was given 1L NSS, 1.5 mg IV ativan, and 4 mg IV zofran. While the patient's blood pressure normalized after 1L NSS, her significant anxiety and AMS did not change after IV ativan. Due to ongoing mental status changes, hypotension, and hyperventilation we were asked to admit the patient for further evaluation and treatment. At the time of the exam the patient was sitting in bed in obvious distress due to anxiety and confusion. She was nauseous at the start of my exam but was only brining up clear mucus when attempting to vomit. When asking what is bot juani her she put her hand to her chest but was unable to describe her symptoms. When asked if she is having chest pain she states, "yes". She also grabs her head and states that her head is hurting her. The majority of the history was obtained from the patient's boyfriend who is at bedside and her mother who is on video chat. Her boyfriend states that the patient had been doing well since her discharge from [facility] on 08/18/23. She had been taking the PO vancomycin as prescribed and had been holding her methotrexate as recommended. He states that she was in her normal state of health and normal mental status last night. She did develop a non-productive cough last night but this was mild and caused her little distress. Her Boyfriend states that he woke up around 0300 this am and noticed the patient was in the bathroom. He states that she was taking a bath. Since then the patient has not been acting herself. When asked, the patient's boyfriend denies that the patient has been using any alcohol, drugs, or other mentation altering substances recently. The patient is unable to follow the majority of commands and answer questions appropriately due to her acute confusion, anxiety, and agitation. Please refer to Dr. Doe's attestation for any changes to the treatment plan Allergies Allergy/AdvReac Type Severity Reaction Status Date / Time metoclopramide [From Reglan] Allergy Severe TONGUE Verified 08/25/23 09:59 SWELLS, RESTLESSNESS tramadol AdvReac Intermediate COLD Verified 08/25/23 09:59 SWEATS, AGITATION, BLURRED VISION Home Medications Medication Instructions Recorded Confirmed Type ergocalciferol (vitamin D2) 1,250 1,250 mcg PO WK 08/04/23 08/25/23 History mcg (50,000 unit) capsule (Vitamin D2) folic acid 1 mg tablet 1 mg PO DAILY 08/04/23 08/25/23 History methotrexate (PF) 15 mg/0.3 mL 15 mg subcut WK 08/04/23 08/25/23 History subcutaneous auto-injector cyanocobalamin (vitamin B-12) 1,000 mcg PO DAILY #30 caps 08/17/23 08/25/23 Rx 1,000 mcg capsule Nitroglycerin 0.2% 1 tube ointment See Rx Instructions .Route 08/18/23 08/25/23 Rx .COMPLEX #1 tube ferrous gluconate 324 mg (38 mg 324 mg PO QAM 30 days #30 tabs 08/18/23 08/25/23 Rx iron) tablet lidocaine 4 % topical cream 1 applic EXT Q6H PRN pain 30 days 08/18/23 08/25/23 Rx (Anecream) #15 grams vancomycin 125 mg capsule 125 mg PO Q6H 21 days #84 caps 08/18/23 08/25/23 Rx cholestyramine-aspartame 4 gram 0 ea PO BID@0500,1700 08/25/23 08/25/23 History oral powder for susp in a packet (Prevalite) Past Med/Surg History Social History Smoking Status: Never smoker Second Hand Exposure: No; Do You Dip or Chew Tobacco: No; Hx Alcohol Use: Yes Alcohol type: hard liquor Hx Substance Use: No Preferred Language: Swiss Communication Ability: Effective Industrial Engineering Manager Required: No Beliefs That Will Affect Care: None Current Living Situation: Significant Other Current Living Situation Comment: lives with fiance Feels Safe at Home: Yes Assistive Devices: None Physical Exam Physical Exam: Physical Exam: General: In acute distress, stated age, well-nourished, non-toxic appearing HEENT: Normocephalic, atraumatic, no scleral icterus, pupils around round, symmetrical, and reactive to light, moist mucus membranes, trachea midline, no thyromegaly Chest/Pulm: No respiratory distress, symmetrical chest expansion, scattered expiratory wheezing noted Cardiac: tachycardic rate, regular rhythm, no murmurs noted Abdomen: Negative for ascites and bruising, normoactive bowel sounds, soft, non-tender to palpation throughout Musculoskeletal: Symmetrical and without signs of acute trauma, upper and lower extremities with full ROM, no atrophy, spasticity, or flaccidity Extremities: Radial, dorsalis pedis, and posterior tibial pulses are intact and symmetrical, no edema noted in the BL LE's Skin: Warm, dry, no rashes , lesions, or scars noted Neuro: Alert, oriented to person and place but unable to participate with the majority of the neuro exam due to her current mental state, patient without focal neuro defect on CN testings but was unable to completely participate, patient unable to follow commands for pronator drift or cerebellar testing, patient is tremulous on exam Psych: Anxious and tearful, intermittent episodes of attention/alertness but then becomes anxious and confused, no apparent hallucinations, patient is not aggressive towards others Results & Data Results & Data Vital Signs (Past 12 Hours) Vital Signs Temp Pulse Pulse Resp BP BP Pulse Ox 08/25/23 08:05 92 H 24 100 08/25/23 08:05 100 H 20 111/59 L 100 08/25/23 06:35 101 H 08/25/23 06:24 37.0 C 112 H 40 H 70/44 L 98 O2 Del Method 08/25/23 08:05 Room Air 08/25/23 08:05 Room Air 08/25/23 06:35 08/25/23 06:24 Room Air Laboratory Results Abnormal lab results 08/25/23 08/25/23 08/25/23 Range/Units 06:54 07:43 10:16 WBC 12.33 H (4.8-10.8) K/ul Hgb 10.6 L (12.0-16.0) g/dl Hct 33.9 L (37.0-47.0) % MCV 72.7 L (80.0-100.0) fL MCH 22.7 L (25.0-34.0) pg MCHC 31.3 L (32.0-36.0) g/dL RDW Std Deviation 57.2 H (36.4-46.3) fL RDW Coeff of Erika 22.7 H (11.5-14.5) % Plt Count 681 H (130-400) K/uL Neut # (Auto) 9.56 H (1.40-6.50) K/uL Harnett # (Auto) 1.22 H (0.11-0.59) K/uL VBG pH 7.54 H (7.36-7.41) VBG pCO2 24 L (38-50) mmHg POC Total CO2 22 L (24-31) mmol/L Anion Gap 13 H (3-11) POC Anion Gap 14.0 L (16-25) mmol/L POC BUN 4 L (7-18) mg/dl BUN 5 L (6-23) mg/dl BUN/Creatinine Ratio 7.5 L (10-20) Glucose 105 H (70-99(Fasting)) mg/dl POC Glucose (other) 112 H (70-99) mg/dl Lactate 2.6 H* (0.4-2.0) mmol/L POC Ioniz Calcium Onofre 0.99 L (1.12-1.32) mmol/l Diagnostic Findings Chest X-Ray 08/25/23 06:34 XR chest 1V portable HISTORY: 28 years-old Female Sepsis acute sepsis COMPARISON: 08/13/2023 TECHNIQUE: AP view of the chest FINDINGS: Cardiomediastinal and hilar silhouettes are within normal limits. 9 mm nodular density projected over the right upper lung is likely artifactual. No pneumothorax, pleural effusion or airspace consolidation. Bones appear grossly intact. IMPRESSION: No acute process. ACT 112: Negative or not required by law. The above report was generated using voice recognition software. It may contain grammatical, syntax or spelling errors. Electronically signed by: Kal Gonzalez M.D. 08/25/2023 8:36 AM Abdomen/Pelvis CT 08/25/23 06:37 CT SCAN OF THE ABDOMEN AND PELVIS WITH IV CONTRAST CLINICAL HISTORY: Generalized abdominal pain. Change in mental status. COMPARISON STUDY: Abdominal CT dated 08/11/2023. TECHNIQUE: Following the IV administration of 94 cc of Optiray 320, CT scan of the abdomen and pelvis is performed from the lung bases to the proximal femora. Images are reviewed in the axial, sagittal, and coronal planes. IV contrast was administered without complication. A dose lowering technique was utilized adhering to the principles of ALARA. The examination is degraded by motion artifact. CT DOSE: 1935.7 mGy.cm FINDINGS: Lung bases: The heart is normal in size noting trace pericardial effusion. The lung bases are clear. Liver: The contrast-enhanced liver is normal in size, contour, and attenuation. There is no intrahepatic biliary ductal dilatation. The hepatic veins and portal veins are patent. Gallbladder: Unremarkable. Spleen: Normal in size and attenuation. Pancreas: Unremarkable. Adrenal glands: Unremarkable. Kidneys: The contrast enhanced kidneys are normal in size and without hydronephrosis. The kidneys enhance symmetrically. Abdominal vasculature: The abdominal aorta is normal in course and caliber. Bowel: There is rectosigmoid fecal retention. No bowel obstruction is seen. The appendix is well-visualized and normal. Peritoneum: No intraperitoneal free air is identified. There is trace free fluid in the right lower quadrant. There is a fat and fluid containing umbilical hernia. Lymphadenopathy: Right inguinal lymphadenopathy is similar to previous. A right inguinal node with surrounding infiltration is seen on axial image #295 and measures 2.3 x 1.8 cm. A prominent right pelvic sidewall that is decreased in size from 08/11/2023. This measures up to 5 mm in short axis. No left inguinal lymphadenopathy is identified. There is no abdominal, retroperitoneal, or mesenteric lymphadenopathy. Pelvic viscera: The bladder is distended but otherwise normal in appearance. Uterus and adnexa are normal as visualized noting bilateral ovarian follicles. Surgical clips are noted in the left groin. Skeletal structures: No lytic or blastic lesions are seen. IMPRESSION: 1. Right inguinal lymphadenopathy with surrounding infiltration has not significantly changed from 08/11/2023 joint. Correlate clinically. 2. No additional infectious or inflammatory findings are suggested in the abdomen or pelvis. 3. Trace nonspecific free fluid is noted in the right lower quadrant. 4. Rectosigmoid fecal retention. 5. Additional findings as above. ACT 112: Negative or not required by law. Electronically signed by: Ford Flores M.D. 08/25/2023 9:[address] 08/25/23 06:37 CT SCAN OF THE BRAIN WITHOUT IV CONTRAST CLINICAL HISTORY: Change in mental status. COMPARISON STUDY: No priors. TECHNIQUE: Unenhanced axial CT scan of the brain is performed from the vertex to the skull base. A dose lowering technique was utilized adhering to the principles of ALARA. FINDINGS: Brain parenchyma: The brain parenchyma is normal in appearance. There is no hemorrhage, mass effect, or evidence of acute territorial ischemia by CT criter ia. Poe-white matter differentiation is preserved. No extra-axial fluid collection is seen. Ventricles, sulci, cisterns: Normal in configuration. Intracranial vasculature: The visualized intracranial vasculature at the skull base is normal in appearance. Calvarium: Unremarkable. Sinuses and mastoids: The visualized paranasal sinuses are clear. The mastoid air cells are well pneumatized. Orbits: The bony orbits are grossly intact. IMPRESSION: No acute intracranial abnormality. ACT 112: Negative or not required by law. Electronically signed by: Ford Flores M.D. 08/25/2023 9:[address] 08/25/23 07:[address] WITH CONTRAST HISTORY: Acute shortness of breath with nausea and anemia sob TECHNIQUE: Multiaxial CT images of the chest were performed following the IV administration of 94 cc of Optiray. A dose lowering technique was utilized adhering to the principles of ALARA. COMPARISON: CT abdomen and pelvis of same day FINDINGS: Study is degraded by respiratory motion. Unremarkable thyroid. Heart is normal in size with trace pericardial effusion. Unremarkable thoracic aorta and pulmonary artery which is suboptimally visualized. No pneumothorax, pleural effusion, or pulmonary edema. Subsegmental tree-in-bud nodules within the lateral segment right middle lobe. There is a linear focus of subsegmental probable scarring within the apical posterior segment left upper lobe at the lesser extent within the right lower lobe. Central airways are patent. Fluid-filled distended stomach. No acute upper abdominal abnormality. Subcentimeter right breast calcifications. 1.6 cm circumscribed mass of the upper outer quadrant left breast on image 95 series 8. No acute fracture. IMPRESSION: 1. Study degraded by respiratory motion artifact. 2. Subsegmental tree-in-bud nodules of the right lung base compatible with an infectious or inflammatory bronchiolitis. 3. Indeterminate 1.6 cm circumscribed mass of the upper outer quadrant left breast. Correlation with nonemergent follow-up breast ultrasound recommended. 4. Please refer to the CT abdomen and pelvis study of same day for additional findings. ACT 112: Negative or not required by law. Electronically signed by: Kal Gonzalez M.D. 08/25/2023 9:35 AM ECG Additional Comments: Will obtain when patient is less anxious/agitated Code Status & VTE Plan VTE Prophylaxis Plan VTE Prophylaxis will be ordered: Yes PG Care Time/CCT Total # of Minutes Spent Total Time Spent with Patient: Total time spent is greater than 50% in coordination of care (as documented) at patient's floor/unit and/or counseling patient: Coding [place] [address] INT INP/OBS CARE 3/75MIN Patient Type Established Medical Decision Making High Complexity Diagnoses AMS (altered mental status) R41.82 Breast mass N63.0 Chest pain R07.9 Hypotension I95.9 Respiratory alkalosis E87.3 C. difficile diarrhea A04.72 Hypocalcemia E83.51 Anemia D64.9 Anal fissure K60.2 Kira's granulomatosis M31.30
[2023-08-25 10:25] LABS: HCO3 VBG 21 mmol/L; Oxygen Saturation VBG 99.1 %; PCO2 VBG 24 mmHg (38-50); PO2 VBG 114 mmHg; pH VBG 7.54 (7.36-7.41)
[2023-08-25 10:40] LABS: iSTAT Creatinine 0.6 mg/dl (0.6-1.3); iSTAT Hemoglobin 13.3 g/dl (12.0-16.0); iSTAT Ionized Calcium 0.99 mmol/l (1.12-1.32); iSTAT Potassium 4.5 mmol/L (3.3-5.0)
[2023-08-25] MEDS: LACTATED RINGER'S 1,000 ML IV ONE (10:53)
[2023-08-25 10:59] LABS: Partial Thromboplastin Ratio 0.7; Partial Thromboplastin Time 21 Seconds (21-31); Prothrombin Time 11.4 Seconds (9.0-12.0)
[2023-08-25 11:05] LABS: Adenovirus PCR Not Detected (NotDetected); Bordetella parapertussis PCR Not Detected (NotDetected); Bordetella pertussis PCR Not Detected (NotDetected); Chlamydia pneumoniae PCR Not Detected (NotDetected); Coronavirus 229E PCR Not Detected (NotDetected); Coronavirus CoV-2 (COVID19)PCR Not Detected (NotDetected); Coronavirus HKU1 PCR Not Detected (NotDetected); Coronavirus NL63 PCR Not Detected (NotDetected); Coronavirus OC43PCR Not Detected (NotDetected); Human Metapneumovirus PCR Not Detected (NotDetected); Influenza A PCR Not Detected (NotDetected); Influenza B PCR Not Detected (NotDetected); Mycoplasma pneumoniae PCR Not Detected (NotDetected); Parainfluenza Virus 1 PCR Not Detected (NotDetected); Parainfluenza Virus 2 PCR Not Detected (NotDetected); Parainfluenza Virus 3 PCR Not Detected (NotDetected); Parainfluenza Virus 4 PCR Not Detected (NotDetected); Rhinovirus/Enterovirus PCR Not Detected (NotDetected)
[2023-08-25 11:08] LABS: D Dimer 1500 ug/L FEU (0-500)
[2023-08-25 11:11] LABS: Respiratory Syncytial VirusPCR DETECTED (NotDetected)
[2023-08-25 11:13] LABS: Appearance Urine Clear (Clear); Bacteria Urine Automated Negative (Negative); Bilirubin Urine Negative (Negative); Blood Urine Trace (Negative); Color Urine Yellow; Epithelial Cell Urine Auto >30 /lpf (0-5); Glucose Urine UA Negative (Negative); Ketones Urine Negative (Negative); Leukocyte Esterase Urine 3+ (Negative); Nitrite Urine Negative (Negative); Protein Urine Negative (Negative); Specific Gravity Urine 1.034 (1.000-1.030); Urobilinogen Urine Negative (Negative); WBC Urine Automated >30 /hpf (0-5); pH Urine >= 9.0 (4.5-7.5)
[2023-08-25] MEDS: OLANZapine ZYDIS 5 MG ORALLY DIS. TAB PO STA (11:14)
[2023-08-25] MEDS: PANTOprazole 40 MG TAB PO STA (11:14)
[2023-08-25] MEDS: CALCIUM GLUCONATE 1,000 MG/60 ML BAG IV STA (11:14)
[2023-08-25] MEDS: ACETAMINOPHEN 1,000 MG/100 ML VIAL IV STA (11:49)
[2023-08-25 11:50] LABS: Calcium Oxalate Crystals Urine Present (None Prsent); RBC Urine Automated 0-4 /hpf (0-4)
[2023-08-25 11:55] LABS: Amphetamines+Metham, Urine Neg (Neg); Barbiturates, Urine Neg (Neg); Benzodiazepine, Urine Neg (Neg); Cocaine, Urine Neg (Neg); MDMA (Ecstacy), Urine Neg (Neg); Marijuana, Urine Neg (Neg); Methadone, Urine Neg (Neg); Opiate, Urine Neg (Neg); Phencyclidine, Urine Neg (Neg)
[2023-08-25] MEDS ORDERED: LIDOCAINE 4% CREAM 15 GM TUBE EXT PRN (12:42)
[2023-08-25] MEDS ORDERED: LORazepam 1 MG in SYRINGE 0.5 ML IV PRN (13:09)
[2023-08-25] MEDS: LORazepam 2 MG in SYRINGE 1 ML IV ONE (13:10)
[2023-08-25] MEDS: VANCOMYCIN HCL 125 MG/2.5ML SOLN PO SCH (13:14)
--- NOTE | 2023-08-25 13:53 | Electrocardiogram Report ---
Test Reason : Blood Pressure : / mmHG Vent. Rate : 092 BPM Atrial Rate : 092 BPM P-R Int : 172 ms QRS Dur : 074 ms QT Int : 364 ms P-R-T Axes : 060 -10 -30 degrees QTc Int : 450 ms Poor data quality, interpretation may be adversely affected Normal sinus rhythm T wave abnormality, consider anterolateral ischemia Abnormal ECG No previous ECGs available Confirmed by Pierce Donato ([id number]) on 08/25/2023 1:53:45 PM Referred By: REFERRED SELF Confirmed By:Pierce Donato
[2023-08-25] MEDS: GADOBUTROL 65ML VIAL IV ONE (13:59)
[2023-08-25] MEDS: CHERRY SYRUP 5 ML UDP PO SCH (14:21)
--- NOTE | 2023-08-25 14:27 | Magnetic Resonance Report ---
MRI OF THE BRAIN WITHOUT AND WITH IV CONTRAST CLINICAL HISTORY: Altered mental status. COMPARISON STUDY: Head CT performed earlier today. TECHNIQUE: Utilizing a 1.5 Aida magnet and dedicated coil, multiplanar, multiecho imaging of the br ain was performed pre and postcontrast administration. IV administration of 7.8 mL of Gadavist contr ast was uneventful. FINDINGS: This study is mildly compromised by motion artifact although is diagnostic. There are no fo ci of restricted diffusion to suggest acute infarct. No acute intracranial hemorrhage, midline shift or mass effect is present. Cerebellar tonsils are at the level of the foramen magnum. Ventricular sys tem is normal. Basal cisterns are patent. There are no extra-axial collections. A few punctate white matter T2 hyperintense foci are doubtful significance. There is no intracranial mass or pathologic en hancement. Minimal sinus full thickening without evidence for sinusitis. Trace left mastoid fluid. IMPRESSION: 1. No acute intracranial findings. Exam mildly compromised by motion artifact. 2. No intracranial mass or pathologic enhancement. 3. A few punctate white matter T2 hyperintense foci which are of doubtful significance. ACT 112: Negative or not required by law. Electronically signed by: Joe Abreu M.D. 08/25/2023 2:24 PM
[2023-08-25] MEDS ORDERED: VANCOMYCIN CONSULT ACTIVE PRN (14:44)
[2023-08-25] MEDS ORDERED: VANCOMYCIN HCL 1,000 MG in SODIUM CHLORIDE 0.9% 250 ML IV SCH (14:45)
[2023-08-25] MEDS ORDERED: ACYCLOVIR SOD 780 MG in DEXTROSE 5% 250 ML IV SCH (14:45)
[2023-08-25] MEDS ORDERED: VANCOMYCIN HCL 2,000 MG in SODIUM CHLORIDE 0.9% 500 ML IV SCH (15:00)
[2023-08-25] MEDS: DEXAMETHASONE SOD INJ 4 MG/ML VIAL IV STA (15:28)
[2023-08-25] MEDS: cefTRIAXone SODIUM 2,000 MG in DEXTROSE 5 % MINI-B 50 ML IV STA (15:28)
[2023-08-25] MEDS: DEXTROSE 5% IV SCH (16:00)
[2023-08-25] MEDS: ACYCLOVIR SOD IV SCH (16:00)
[2023-08-25] MEDS: VANCOMYCIN HCL 2,000 MG in SODIUM CHLORIDE 0.9% 500 ML IV ONE (17:04)
[2023-08-25] MEDS: CHOLESTYRAMINE LIGHT 4 GM PKT PO SCH (17:26)
--- NOTE | 2023-08-25 18:10 | Pharmacy Report ---
Pharmacy PK ABX Note - Date of Service August 25, 2023 - Assessment and Plan Assessment 28 year old started on vancomycin for concerns for AMS/TANK SETTER infection. CT of head/brain was negative. Per notes, recent dx of COVID last month and currently being treated for C diff since her last hospital admission. Patient on methotrexate at home. Plan Vancomycin * Loading dose: 2000 mg x 1 (ED) ~25 mg/kg/dose * Maintenance dose: 1250 mg IV every 8 hours * Regimen is predicted to achieve target AUC/DELLA of 400-600 mg/L.hr * Will plan to collect level if plan is to continue >24 hours Pharmacy will continue to follow and will adjust dose/frequency as necessary. Thank you. Pharmacy has transitioned to AUC monitoring for vancomycin. AUC/DELLA is the preferred PK/PD target and is associated with decreased risk of nephrotoxicity compared to traditional trough targets.
--- NOTE | 2023-08-25 18:11 | Ultrasound Report ---
BILATERAL LOWER EXTREMITY VENOUS DOPPLER CLINICAL HISTORY: chest pain, elevated d-dimer, monitor for DVT COMPARISON STUDY: No previous studies for comparison. TECHNIQUE: Sonography of the deep venous system of the bilateral lower extremities was performed. Co mpression and augmentation were evaluated. FINDINGS: The bilateral common femoral, superficial femoral and popliteal veins were compressible. A ugmentation was normal. Flow was shown within the deep calf vessels. IMPRESSION: No evidence of deep venous thrombus within the bilateral lower extremities. ACT 112: Negative or not required by law. Electronically signed by: Joe Abrue M.D. 08/25/2023 6:09 PM
--- NOTE | 2023-08-25 19:24 | Communication Note ---
Date of Service: August 25, 2023 -MRI of the brain was negative for acute findings -Patient's symptoms are minimally improved after giving 1gm IV tylenol and 5 mg PO Zyprexa on admission -Was found to be RSV + on Full respiratory biofire -At this time we still have concerns for possible TRUCK PACKER infection, unfortunately LP will not be able to be performed until tomorrow am at this time >Patient will undergo LP tomorrow at 0800 with Radiology -For now we will start empiric meningitis coverage with Ceftriaxone, Vancomycin, and Acyclovir The patient was discussed with Dr. Doe at the time of this update
[2023-08-25] MEDS: PLASMA-LYTE A 1,000 ML IV SCH (20:06)
[2023-08-26] MEDS: VANCOMYCIN HCL 1,250 MG in SODIUM CHLORIDE 0.9% 250 ML IV SCH (01:53)
[2023-08-26] MEDS: cefTRIAXone SODIUM 2,000 MG in DEXTROSE 5 % MINI-B 50 ML IV SCH (01:55)
[2023-08-26 08:57] LABS: Basophils # (auto) 0.03 K/uL (0.00-0.20); Basophils % (auto) 0.3 %; Hematocrit (blood only) 30.7 % (37.0-47.0); Hemoglobin 9.4 g/dl (12.0-16.0); Immature Granulocytes # (auto) 0.06 K/uL (0.01-0.20); Immature Granulocytes % (auto) 0.5 %; Lymphocytes # (auto) 0.94 K/uL (1.20-3.40); Lymphocytes % (auto) 8.6 %; Mean Corpuscular Hemoglobin 22.6 pg (25.0-34.0); Mean Corpuscular Hgb Conc 30.6 g/dL (32.0-36.0); Mean Corpuscular Volume 73.8 fL (80.0-100.0); Mean Platelet Volume 10.1 fL (9.4-12.4); Monocytes # (auto) 1.08 K/uL (0.11-0.59); Monocytes % (auto) 9.8 %; Neutrophils # (auto) 8.88 K/uL (1.40-6.50); Neutrophils % (auto) 80.8 %; Platelet Count 605 K/uL (130-400); RDW Coefficient of Variation 23.5 % (11.5-14.5); RDW Standard Deviation 60.8 fL (36.4-46.3); Red Blood Count 4.16 M/uL (4.20-5.40); White Blood Count 10.99 K/ul (4.8-10.8)
[2023-08-26 09:24] LABS: Albumin Globulin Ratio 1.2 (0.9-2); Albumin Level 3.8 gm/dl (3.4-5.0); BUN Creatinine Ratio 5.2 (10-20); Bilirubin,Total 0.2 mg/dl (0.2-1.0); Calcium 9.6 mg/dl (8.6-10.3); Creatinine Clr Calc Pharmacy 142.7 ml/min; Est GFR (African American) 146.4 ml/min; Est GFR (Non-African American) 126.3 ml/min; Globulin 3.1 gm/dl (2.5-4.0); Magnesium 2.1 mg/dl (1.7-2.4); Potassium 3.9 mmol/L (3.5-5.1); Total Protein 6.9 gm/dl (6.0-8.3)
[2023-08-26 09:31] LABS: INR 1.1 (0.9-1.1); Prothrombin Time 11.6 Seconds (9.0-12.0)
[2023-08-26 09:33] LABS: Anisocytosis Present; Polychromasia 2+
[2023-08-26 10:12] LABS: Total Protein CSF 31.3 mg/dl (15-45)
[2023-08-26 10:35] LABS: Appearance CSF Clear; CSF Count Tube # 3; CSF Xanthrochromic No xanthochromia; Color CSF Colorless; Red Blood Cell CSF Manual 1 (0-); White Blood Cell CSF Manual 0 (0-5)
--- NOTE | 2023-08-26 11:21 | Neurology Consultation ---
Date of Consultation August 26, 2023 Assessment & Plan (1) Syncope: (2) AMS (altered mental status): (3) RSV (respiratory syncytial virus infection): (4) Kira's granulomatosis: Plan 28-year-old female with recent hospitalization for COVID infection and C. difficile colitis, has been doing well over the past week although had not been eating or drinking very well, was observed to have a brief syncopal episode with associated confusion prior to admission, currently neurologically intact, has a persistent cough, found to have acute RSV infection during this hospitalization. No prior history of loss of consciousness, syncope, or seizures. No injury associated with the above syncopal event. Her neuroimaging including CT of the head and brain MRI are unremarkable. No clinical signs or symptoms suggestive of meningitis at this time. Initial LP results normal, CSF meningoencephalitis PCR pending. Has been receiving broad spectrum antimicrobial therapy including acyclovir, vancomycin, and ceftriaxone. 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 No known history of neurologic complications of her Kira's. Follow-up with results of CSF meningoencephalitis bio fire panel and CSF cultures. If results are negative may discontinue her broad-spectrum antimicrobial therapy. Continue supportive medical care for acute RSV infection which I suspect is the cause of her presentation in the context of recent hospitalization for COVID-19 and C. difficile. There is not appear to be any evidence of a primary neurol ogical process in this patient at this time. She is currently neurologically intact and without neurologic symptoms. Does not require an EEG. Please contact me with any questions. 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 difficile colitis, and COVID infection, was discharged from the [facility] on August 18, 2023. She had been home for 1 week and seem to be doing better, diarrhea resolved, although began to develop a cough/upper respiratory infection, she has not been eating or drinking very well and had been hypotensive, also noted to have a respiratory alkalosis. Her chief complaint in the emergency department yesterday was abdominal pain. She also endorsed some chest pain and headache. According to her spouse, who is at bedside, the patient had a brief syncopal episode at around 4:30 in the morning, the episode lasted for only a few seconds, she was somewhat confused and remains a bit amnestic for this episode. He did not observe any collapse or convulsive type movements, she was sitting in a chair at the time of the event. No prior history of episodes of loss of consciousness, syncope, or seizures. She was alert and fully oriented at the time of her ED assessment, although appeared anxious. She has been afebrile since her ED presentation on August 25. She was hypotensive with a blood pressure of 70/44. She was mildly tachycardic as well. A CT of the head was negative for hemorrhage or acute process. A follow- up brain MRI completed yesterday was also negative for acute process, no significant parenchymal abnormality other than a few small nonspecific punctate white matter T2 hyperintense foci of unlikely clinical significance. No abnormal postcontrast enhancement. No hydrocephalus or other pathology. I independently reviewed these images. Given patient's presentation there was some concern for possible meningitis or encephalitis. A lumbar puncture was completed this morning. Preliminary results are unremarkable, CSF clear, colorless, no xanthochromia, CSF WBC 0, RBC 1, glucose 95, protein 31.3.. Upper respiratory PCR positive for RSV. CSF meningoencephalitis PCR's are pending at this time. This morning, the patient feels well, she remains a bit amnestic for the brief syncopal episode prior to presentation. She does have a low-grade persistent cough. She currently is without headache, denies vision disturbance such as vision loss or diplopia, no vertigo, no dysarthria or change in speech, no focal weakness. Allergies Allergy/AdvReac Type Severity Reaction Status Date / Time metoclopramide [From Reglan] Allergy Severe TONGUE Verified 08/25/23 09:59 SWELLS, RESTLESSNESS tramadol AdvReac Intermediate COLD Verified 08/25/23 09:59 SWEATS, AGITATION, BLURRED VISION Home Medications Medication Instructions Recorded Confirmed Type ergocalciferol (vitamin D2) 1,250 1,250 mcg PO WK 08/04/23 08/25/23 History mcg (50,000 unit) capsule (Vitamin D2) folic acid 1 mg tablet 1 mg PO DAILY 08/04/23 08/25/23 History methotrexate (PF) 15 mg/0.3 mL 15 mg subcut WK 08/04/23 08/25/23 History subcutaneous auto-injector cyanocobalamin (vitamin B-12) 1,000 mcg PO DAILY #30 caps 08/17/23 08/25/23 Rx 1,000 mcg capsule Nitroglycerin 0.2% 1 tube ointment See Rx Instructions .Route 08/18/23 08/25/23 Rx .COMPLEX #1 tube ferrous gluconate 324 mg (38 mg 324 mg PO QAM 30 days #30 tabs 08/18/23 08/25/23 Rx iron) tablet lidocaine 4 % topical cream 1 applic EXT Q6H PRN pain 30 days 08/18/23 08/25/23 Rx (Anecream) #15 grams vancomycin 125 mg capsule 125 mg PO Q6H 21 days #84 caps 08/18/23 08/25/23 Rx cholestyramine-aspartame 4 gram 0 ea PO BID@0500,1700 08/25/23 08/25/23 History oral powder for susp in a packet (Prevalite) Patient History Social History Smoking Status: Never smoker Second Hand Exposure: No; Do You Dip or Chew Tobacco: No; Hx Alcohol Use: Yes Alcohol type: hard liquor Hx Substance Use: No Preferred Language: Nicaraguan Communication Ability: Effective Certified Personal Finance Counselor Required: No Beliefs That Will Affect Care: None Current Living Situation: Significant Other Current Living Situation Comment: lives with fiance Feels Safe at Home: Yes Assistive Devices: None Review of Systems Constitutional: + fatigue; no fever and no chills Eyes: no blind spots and no diplopia Ear, Nose, Mouth, Throat: no hearing loss Respiratory: + cough Cardiovascular: + chest pain Gastrointestinal: no abdominal pain, no nausea, no vomiting and no diarrhea/loose stools Genitourinary: no dysuria Musculoskeletal: no back pain, no neck pain, no joint pain and no myalgia Integumentary: no rash and no lesions Neurologic: as per Subjective / HPI; no gait abnormality, no unsteadiness, no localized weakness, no loss of sensation, no lack of coordination, no tremor(s), no abnormal movements, no dizziness, no headache(s), no abnormal speech, no confusion and no memory loss Psychiatric: no depression and no anxiety Hematologic / Lymphatic: no easy bleeding and no easy bruising Exam (Neuro) Constitutional: well developed and well nourished; no acute distress Eyes: normal visual jimenez by confrontation, PERRL and EOM intact bilaterally; no nystagmus Neurologic: Oriented to:: Person, Place and Time Memory: Short Term Intact and Remote Intact Attention: Span Intact and Concentration Intact Speech Fluency: negative Dysarthria or Dysfluency Speech Aphasia: negative Aphasia Fund of Knowledge: Current Events, Past History and Vocabulary Cranial Nerves: Normal II, III, IV, , V, VII, VIII, IX, X, XI and XII Motor Strength: Normal Lower Extremities and Normal Upper Extremities Motor Tone: Normal Lower Extremities and Normal Upper Extremities Muscle Bulk/Involuntary Movements: No Involuntary Movements; negative Muscle Atrophy Sensation: Light Touch Intact, Pain/Temperature Intact, Vibration Intact and Proprioception Intact Coordination: Normal; negative Dysdiadochokinesia, Finger-Nose Abnormal or Heel-Gu Abnormal Deep Tendon Reflexes: Rt Triceps: 2+, Lt Triceps: 2+, Rt Biceps: 2+, Lt Biceps: 2+, Rt Brachioradialis: 2+, Lt Brachioradialis: 2+, Rt Patellar: 2+, Lt Patellar: 2+, Rt Ankle: 2+ and Lt Ankle: 2+ Special Tests: negative Babinski Present Details: Gait could not be tested, status post lumbar puncture. No nuchal rigidity on examination. Results & Data Vital Signs (Past 12 Hours) Vital Signs Temp Pulse Pulse Resp BP Pulse Ox O2 Del Method 08/26/23 10:00 Room Air 08/26/23 08:00 84 08/26/23 07:52 36.5 C 93 H 16 103/65 95 Room Air 08/25/23 23:57 85 Laboratory Results WBC 10.99, hemoglobin 9.4, hematocrit 30.7, MCV 73.8, platelet count 605, sodium 139, potassium 3.9, BUN 3, creatinine 0.58, glucose 103, calcium 9.6, magnesium 2.1, AST 14, ALT 15, TSH 1.876. CSF is as described in the HPI, benign, CSF PCR is pending. Upper respiratory PCR positive for RSV. Diagnostic Findings CT of the brain and brain MRI are as described in the HPI, I independently reviewed these images. An electrocardiogram reveals a normal sinus rhythm, 92 bpm. Coding Level of Care Code 95099 INT INP/OBS CARE 3/75MIN Diagnoses Syncope R55 AMS (altered mental status) R41.82 Altered mental status type: unspecified RSV (respiratory syncytial virus infection) B33.8 Kira's granulomatosis M31.30 Time Spent (min) 80 Comment Total time includes patient contact, chart review, counseling, note preparation (2) AMS (altered mental status) Altered mental status type: unspecified Qualified Code(s): R41.82 - Altered mental status, unspecified
[2023-08-26 11:49] LABS: Cryptococcus neoformans/ga PCR Not Detected (NotDetected); Cytomegalovirus PCR Not Detected (NotDetected); Enterovirus PCR Not Detected (NotDetected); Escherichia coli K1 PCR Not Detected (NotDetected); Haemophilius influenzae PCR Not Detected (NotDetected); Herpes Simplex Virus 1 PCR Not Detected (NotDetected); Herpes Simplex Virus 2 PCR Not Detected (NotDetected); Human Herpes Virus 6 PCR Not Detected (NotDetected); Human Parechovirus PCR Not Detected (NotDetected); Listeria monocytogenes PCR Not Detected (NotDetected); Neisseria meningitidis PCR Not Detected (NotDetected); Streptococcus agalactiae PCR Not Detected (NotDetected); Streptococcus pneumoniae PCR Not Detected (NotDetected); Varicella Zoster Virus PCR Not Detected (NotDetected)
[2023-08-26] MEDS: CHERRY SYRUP 5 ML UDP PO SCH (12:19)
[2023-08-26] MEDS: ERGOCALCIFEROL 1250 MCG (50,000 UNITS) CAP PO SCH (12:22)
[2023-08-26] MEDS: FOLIC ACID 1 MG TAB PO SCH (12:22)
[2023-08-26] MEDS: VANCOMYCIN HCL 125 MG/2.5ML SOLN PO SCH (12:22)
[2023-08-26] MEDS: CYANOCOBALAMIN (B-12) 500 MCG TABLET PO SCH (12:22)
[2023-08-26] MEDS: FERROUS GLUCONATE 324 MG TAB PO SCH (12:22)
--- NOTE | 2023-08-26 13:57 | Fluoroscopy Report ---
Fluoroscopic guided lumbar puncture CLINICAL HISTORY: Evaluate for meningitis PROCEDURE: Procedure and risks were explained. Informed consent was obtained. A final timeout was com pleted. Patient was placed prone on the fluoroscopic exam table. The lower lumbar region was prepped and draped in sterile fashion. 1% lidocaine was utilized for skin anesthesia. Utilizing fluoroscopic guidance, a 22-gauge spinal needle was advanced into the intrathecal space at the L3-4 disc space level. 1 permanent spot image was obtained. Approximately 8 mL of clear CSF fluid was removed and sent to lab for analysis. The needle was removed and Band-Aid applied. The patient t olerated the procedure well. Vital signs will be monitored postprocedure. Total fluoroscopy time is 36 seconds. DAP is 4.54 mcGy/m2. IMPRESSION: Lumbar puncture as above. Performed, dictated, and signed by Ronnie Munoz PA-C; to be co-signed by Dr. Joe Abreu. Electronically signed by: Joe Abreu M.D. 08/26/2023 2:29 PM
--- NOTE | 2023-08-26 16:12 | Hospitalist Progress Note ---
Date of Service August 26, 2023 Assessment & Plan (1) AMS (altered mental status): Plan: Acute metabolic encephalopathy present on admission has now resolved. -Currently with stable vitals but significant distress/anxiety/agitation/intermittent confusion -Patient presented to the ED this am with her boyfriend after he woke and noticed her to not be acting herself -Since arrival to the ED the patient has been tearful, anxious, agitated, and with intermittent confusion -CT of the head/brain was negative for acute findings -She is noted to have an improving leukocytosis and Hgb since last admission -Alcohol level is negative, patient's boyfriend states that the patient has not used drugs or other cognitive altering substances -At this time her differential is broad but there is high concern for possible TRANSPORTATION CONSULTANT infection such as meningitis or encephalitis >Patient is immunocompromised at baseline when taking Methotrexate for Kira's Granulomatosis >She was recently diagnosed with Covid 19 on 08/04/23 and C. diff during her last admission >Noted to have signs of infectious or inflammatory bronchiolitis on CT of the chest w/con >Will follow full respiratory biofire obtained in the ED -Patient was noted to have a 1.6 cm mass on the upper, outer quadrant of the left breast on CT of the chest w/con, will monitor for signs of metastases on MRI of the brain -UA was obtained and is in process, will monitor urine drug panel obtained in the ED to rule out possible cause -Patient does not appear to have a previous hx of Psychiatric illness, but cannot rule this out on admission -At this time further workup is needed including MRI of the brain w/wo con which will be obtained when the patient is less anxious/agitated -S/P 1.5 mg IV ativan in the ED without change in her current mental status -Will give 5 mg PO ODT Zyprexa now and monitor for improvement -Will likely need to obtain an LP but will wait for MRI results first -Blood cultures were obtained in the ED, will follow -Will wait for MRI results before starting empiric treatment for encephalitis/meningitis at this time -Hold chemical DVT PPX with high risk of falling/injury -Clear liquid diet for now -AM CBC, BMP, mag (2) Viral illness: Plan: She may have RSV bronchitis which needs no specific treatment. She is not requiring oxygen. Symptomatic care (3) Breast mass: Plan: Incidental finding of left breast mass seen on CT scan will further outpatient evaluation (4) Chest pain: Plan: Noncardiac. Resolved. No evidence of acute coronary syndrome. Venous Doppler both legs negative. Very low likelihood of pulmonary embolus (5) Hypotension: Plan: Present on admission. Now resolved with IV fluids. She does not have bacterial sepsis (6) Respiratory alkalosis: Plan: Present on admission. Now resolved (7) C. difficile diarrhea: Plan: Stable. Continue PO Vancomycin until course is finished (8) Hypocalcemia: Plan: Treated with IV calcium replacement. (9) Anemia: Plan: No evidence of active GI bleeding. She will need further outpatient evaluation (10) Kira's granulomatosis: Plan: Stable. Continue methotrexate therapy Plan Hopeful discharge to home tomorrow, August 27 Admission and Anticipated Discharge Date Admission Date: August 25, 2023 Subjective Alert and oriented. Pleasant. Metabolic encephalopathy has resolved. She underwent LP procedure with CSF obtained which is negative for any evidence of bacterial meningitis. Clinically she does not have bacterial meningitis. She remains on Rocephin, vancomycin, acyclovir until cultures proved to be negative. She may have RSV viral bronchitis which does not require any specific treatment. Venous Doppler studies of both legs are negative. IV fluids have been tapered down and her diet has been advanced. I spoke to her mother by phone. Hopefully she can go home tomorrow, August 27 Review of Systems 2 Review of Systems: Constitutional-no fever or chills ENT-no blurred vision, no double vision, no epistaxis, no sore throat Respiratory-no cough, no wheezing, no shortness of breath Cardiac-no palpitations, no chest pain, no syncope GI-no nausea, vomiting, diarrhea, melena, hematochezia -no urinary retention, no urinary incontinence, no dysuria, no hematuria Musculoskeletal-no joint pain, no muscle tenderness Skin-no bruising, no rashes, no pruritus Neuro-no isolated weakness, no paresthesia, no weakness Psych-no depression, no anxiety Physical Exam 2 Physical Exam: General-alert and oriented x3, no fevers, no chills HEENT-head atraumatic and normocephalic, pupils equal and reactive to light, extraocular muscles intact Neck-no lymphadenopathy or thyromegaly, trachea midline Chest-faint bilateral scattered rhonchi. No wheezing. No dullness to percussion Cardiac-regular rate and rhythm, normal S1 and S2 Abdomen-normal bowel sounds, nontender, no hepatosplenomegaly Extremities-no cyanosis, clubbing, or edema Neuro-cranial nerves II through XII intact, motor and sensory function within normal limits, strength symmetrical, no focal deficits Psych-normal affect, normal mood Results & Data Results & Data Vital Signs (Past 12 Hours) Vital Signs Temp Pulse Pulse Resp BP Pulse Ox O2 Del Method 08/26/23 15:35 36.6 C 89 20 106/69 96 Room Air 08/26/23 11:48 36.7 C 94 H 18 114/74 96 Room Air 08/26/23 10:00 Room Air 08/26/23 08:00 84 08/26/23 07:52 36.5 C 93 H 16 103/65 95 Room Air Laboratory Results 08/26/23 08:25 08/26/23 08:25 PG Care Time/CCT Total # of Minutes Spent Total Time Spent with Patient: Total time spent is greater than 50% in coordination of care (as documented) at patient's floor/unit and/or counseling patient: Coding Level of Care Code 29089 SUB INP/OBS CARE 3/50MIN Diagnoses AMS (altered mental status) R41.82 Altered mental status type: unspecified Viral illness B34.9 Breast mass N63.0 Chest pain R07.9 Chest pain type: unspecified Hypotension I95.9 Hypotension type: unspecified hypotension type Respiratory alkalosis E87.3 C. difficile diarrhea A04.72 Hypocalcemia E83.51 Anemia D64.9 Kira's granulomatosis M31.30 (1) AMS (altered mental status) Altered mental status type: unspecified Qualified Code(s): R41.82 - Altered mental status, unspecified (4) Chest pain Chest pain type: unspecified Qualified Code(s): R07.9 - Chest pain, unspecified (5) Hypotension Hypotension type: unspecified hypotension type Qualified Code(s): I95.9 - Hypotension, unspecified
[2023-08-26] MEDS: SODIUM CHLORIDE 0.9% 1,000 ML IV SCH (16:35)
[2023-08-26] MEDS: BENZONATATE 100 MG CAPSULE ONE (18:09)
[2023-08-26] MEDS: BENZONATATE 100 MG CAPSULE PO SCH (20:51)
[2023-08-27] MEDS: guaiFENesin 200 MG TAB PO PRN (02:38)
[2023-08-27] MEDS: ONDANSETRON INJ 2 MG/ML 2 ML VIAL IV PRN (03:33)
[2023-08-27] MEDS: ACETAMINOPHEN 325 MG TAB PO PRN (04:53)
[2023-08-27] MEDS: KETOROLAC TROMETHAMINE 15 MG/ML VIAL IV ONE (05:30)
[2023-08-27 06:30] LABS: Albumin Level 3.6 gm/dl (3.4-5.0); Bilirubin,Total 0.2 mg/dl (0.2-1.0); Calcium 8.5 mg/dl (8.6-10.3); Potassium 3.7 mmol/L (3.5-5.1)
[2023-08-27 06:34] LABS: Basophils # (auto) 0.07 K/uL (0.00-0.20); Basophils % (auto) 0.4 %; Eosinophils # (auto) 0.07 K/uL (0.00-0.50); Eosinophils % (auto) 0.4 %; Hematocrit (blood only) 29.5 % (37.0-47.0); Hemoglobin 9.3 g/dl (12.0-16.0); Immature Granulocytes # (auto) 0.18 K/uL (0.01-0.20); Immature Granulocytes % (auto) 1.1 %; Lymphocytes % (auto) 12.1 %; Mean Corpuscular Hemoglobin 23.3 pg (25.0-34.0); Mean Corpuscular Hgb Conc 31.5 g/dL (32.0-36.0); Mean Corpuscular Volume 73.8 fL (80.0-100.0); Mean Platelet Volume 10.4 fL (9.4-12.4); Monocytes # (auto) 2.13 K/uL (0.11-0.59); Monocytes % (auto) 12.9 %; Neutrophils # (auto) 12.07 K/uL (1.40-6.50); Neutrophils % (auto) 73.1 %; Platelet Count 523 K/uL (130-400); RDW Coefficient of Variation 23.5 % (11.5-14.5); White Blood Count 16.52 K/ul (4.8-10.8)
[2023-08-27 06:35] LABS: Albumin Globulin Ratio 1.4 (0.9-2); Creatinine Clr Calc Pharmacy 123.5 ml/min; Est GFR (African American) 139.6 ml/min; Est GFR (Non-African American) 120.5 ml/min; Globulin 2.6 gm/dl (2.5-4.0); Total Protein 6.2 gm/dl (6.0-8.3)
[2023-08-27 07:21] LABS: Anisocytosis Present; Polychromasia 1+; Tear Drop Cells 1+
[2023-08-27] MEDS ORDERED: VANCOMYCIN LEVEL ONE (09:00)
[2023-08-27] MEDS ORDERED: VANCOMYCIN HCL 1,500 MG in SODIUM CHLORIDE 0.9% 500 ML IV SCH (11:00)
--- NOTE | 2023-08-27 12:14 | Discharge Summary ---
Date of Service August 27, 2023 Admission HPI Per Admitting Provider Surya is a 28 year old female with a PMH significant for recent C. diff infection (Currently on PO Vancomycin), Iron deficiency anemia, Kira's granulomatosis, and hemorrhoids with anal fissures who presented to the [facility] ED on 08/25/23 with complaints of AMS, chest pain, abd pain, and increased anxiety. She was initially noted to be hypotensive at 70/44 and tachycardic at 112, and tachypneic with respirations in the 40's. Labs were significant for an improving leukocytosis, stable Hgb, AG of 13, with bicarb WNL, lactate of 2.6, negative procal, negative Hgb, Ct of the head/brain wo con and chest xray were negative. CT of the chest w/con was read as "1. Study degraded by respiratory motion artifact. 2. Subsegmental tree-in-bud nodules of the right lung base compatible with an infectious or inflammatory bronchiolitis. 3. Indeterminate 1.6 cm circumscribed mass of the upper outer quadrant left breast. Correlation with nonemergent follow-up breast ultrasound recommended. 4. Please refer to the CT abdomen and pelvis study of same day for additional findings. Ct of the abd/pelvis w/IV con was read as "1. Right inguinal lymphadenopathy with surrounding infiltration has not significantly changed from 08/11/2023 joint. Correlate clinically. 2. No additional infectious or inflammatory findings are suggested in the abdomen or pelvis. 3. Trace nonspecific free fluid is noted in the right lower quadrant. 4. Rectosigmoid fecal retention. 5. Additional findings as above.". Prior to admission the patient was given 1L NSS, 1.5 mg IV ativan, and 4 mg IV zofran. While the patient's blood pressure normalized after 1L NSS, her significant anxiety and AMS did not change after IV ativan. Due to ongoing mental status changes, hypotension, and hyperventilation we were asked to admit the patient for further evaluation and treatment. At the time of the exam the patient was sitting in bed in obvious distress due to anxiety and confusion. She was nauseous at the start of my exam but was only brining up clear mucus when attempting to vomit. When asking what is bothering her she put her hand to her chest but was unable to describe her symptoms. When asked if she is having chest pain she states, "yes". She also grabs her head and states that her head is hurting her. The majority of the history was obtained from the patient's boyfriend who is at bedside and her mother who is on video chat. Her boyfriend states that the patient had been doing well since her discharge from [facility] on 08/18/23. She had been taking the PO vancomycin as prescribed and had been holding her methotrexate as recommended. He states that she was in her normal state of health and normal mental status last night. She did develop a non-productive cough last night but this was mild and caused her little distress. Her Boyfriend states that he woke up around 0300 this am and noticed the patient was in the bathroom. He states that she was taking a bath. Since then the patient has not been acting herself. When asked, the patient's boyfriend denies that the patient has been using any alcohol, drugs, or other mentation altering substances recently. The patient is unable to follow the majority of commands and answer questions appropriately due to her acute confusion, anxiety, and agitation. Please refer to Dr. Doe's attestation for any changes to the treatment plan Principal Diagnosis Viral illness, acute metabolic encephalopathy, recently diagnosed C. difficile enteritis, incidental finding of left breast mass on CT scan Discharge Exam General-alert and oriented x3, no fevers, no chills HEENT-head atraumatic and normocephalic, pupils equal and reactive to light, extraocular muscles intact Neck-no lymphadenopathy or thyromegaly, trachea midline Chest-faint bilateral scattered rhonchi. No wheezing. No dullness to percussion Cardiac-regular rate and rhythm, normal S1 and S2 Abdomen-normal bowel sounds, nontender, no hepatosplenomegaly Extremities-no cyanosis, clubbing, or edema Neuro-cranial nerves II through XII intact, motor and sensory function within normal limits, strength symmetrical, no focal deficits Psych-normal affect, normal mood Discharge Data Allergies Allergy/AdvReac Type Severity Reaction Status Date / Time metoclopramide [From Reglan] Allergy Severe TONGUE Verified 08/25/23 09:59 SWELLS, RESTLESSNESS tramadol AdvReac Intermediate COLD Verified 08/25/23 09:59 SWEATS, AGITATION, BLURRED VISION Consultations 08/25/23 10:15 ED Decision to Admit Stat 08/25/23 17:25 Consult Neurology Routine Ordered Studies 08/25/23 06:37 CT abd pelvis IV con only Stat CT head/brain wo con Stat 08/25/23 07:49 CT chest diagnostic w con Stat 08/25/23 10:43 MRI Brain [MR brain wo/w con] Stat 08/25/23 11:41 US venous doppler LE BI Routine 08/26/23 08:00 IR lumbar puncture diagnostic Stat Hospital Course (1) AMS (altered mental status): Acute metabolic encephalopathy present on admission has now resolved. (2) Viral illness: She may have RSV bronchitis which needs no specific treatment. She is not requiring oxygen. Symptomatic care (3) Breast mass: Incidental finding of left breast mass seen on CT scan will further outpatient evaluation . I spoke to the patient and her mother about this and stated she needs to schedule an outpatient mammogram for further evaluation (4) Chest pain: Noncardiac. Resolved. No evidence of acute coronary syndrome. Venous Doppler both legs negative. Very low likelihood of pulmonary embolus (5) Hypotension: Present on admission. Now resolved with IV fluids. She does not have bacterial sepsis (6) Respiratory alkalosis: Present on admission. Now resolved (7) C. difficile diarrhea: Stable. Continue PO Vancomycin until course is finished (8) Hypocalcemia: Treated with IV calcium replacement. (9) Anemia: No evidence of active GI bleeding. She will need further outpatient evaluation (10) Kira's granulomatosis: Stable. Continue methotrexate therapy Plan The patient is asymptomatic and afebrile. All antibiotics have been discontinued. Cultures are negative. She will be discharged home today, Febr [facility] 10 Total Time Total Time Spent Total Time Spent (In Minutes): 45-minute Discharge Plan Discharge Items Patient Disposition: Home - Self-Care Reason For Visit: AMS, HYPOTENSION, CHEST PAIN Discharge Diagnosis: Acute viral illness with suspected viral bronchitis, suspected acute metabolic encephalopathy, RSV positivity by lab testing, recently diagnosed C. difficile enteritis, incidental finding of left breast mass Activity: Resume your previous activity Non-emergency contact: Primary Care Provider Call non-emergency contact if: your symptoms worsen Follow-up/Referrals: [place] [Primary Care Provider] - Diet: Regular Addtl Attending Provider Instructions: Use [id number] cough syrup as needed for coughing until coughing resolves. See primary care provider for scheduling of outpatient mammogram to further evaluate the left breast abnormality seen on CT scan Pending Studies at Discharge: No Stand-Alone Forms: My [facility], Smoking Cessation Medications and DC Order Prescriptions: Continued folic acid 1 mg Tablet 1 mg PO DAILY ergocalciferol (vitamin D2) [Vitamin D2] 1,250 mcg (50,000 unit) Capsule 1,250 mcg PO WK Rx Instructions: FRIDAYS methotrexate (PF) 15 mg/0.3 mL Auto-Injector 15 mg SUBCUT WK Hold Instructions: Until pcp follow up Rx Instructions: Patient currently holding medication per PCP instruction. Doesn't have a resume date. Original Directions: 15mg injected weekly on fridays. cyanocobalamin (vitamin B-12) 1,000 mcg capsule 1,000 mcg PO DAILY Qty: 30 0RF vancomycin 125 mg capsule 125 mg PO Q6H 21 Days Qty: 84 0RF Rx Instructions: Start Date 08/19/23 - End Date 09/04/23 lidocaine [Anecream] 4 % Cream 1 applic EXT Q6H PRN (Reason: pain) 30 Days Qty: 15 2RF ferrous gluconate 324 mg (38 mg iron) Tablet 324 mg PO QAM 30 Days Qty: 30 0RF Nitroglycerin 0.2% 1 tube ointment See Rx Instructions .ROUTE .COMPLEX Qty: 1 0RF Rx Instructions: Make 1/2 strength to 0.2%; rub pea-sized bead of ointment to rectal area three times a day; 1-30g tube cholestyramine-aspartame [Prevalite] 4 gram powder in packet 0 ea PO BID@0500,1700 Rx Instructions: Patient/Family unable to verify that this medication has been taken recently. Was prescribed on 08/18/23. Original Directions: 1 packet twice daily. Admission Data Admit Date/Time: 08/25/23 10:31 Attending Provider: Oj Vasquez Admit Provider: García Doe Primary Care Provider: [facility] Other Providers: García Doe; Talha Addison Coding Level of Care Code 24607 INP/OBS DISCH >30 MIN Diagnoses AMS (altered mental status) R41.82 Altered mental status type: unspecified Viral illness B34.9 Breast mass N63.0 Chest pain R07.9 Chest pain type: unspecified Hypotension I95.9 Hypotension type: unspecified hypotension type Respiratory alkalosis E87.3 C. difficile diarrhea A04.72 Hypocalcemia E83.51 Anemia D64.9 Kira's granulomatosis M31.30
[2023-08-28 06:06] LABS: Basophils # (auto) 0.06 K/uL (0.00-0.20); Basophils % (auto) 0.6 %; Eosinophils # (auto) 0.32 K/uL (0.00-0.50); Eosinophils % (auto) 3.4 %; Hematocrit (blood only) 32.7 % (37.0-47.0); Hemoglobin 9.8 g/dl (12.0-16.0); Immature Granulocytes # (auto) 0.04 K/uL (0.01-0.20); Immature Granulocytes % (auto) 0.4 %; Lymphocytes # (auto) 2.82 K/uL (1.20-3.40); Lymphocytes % (auto) 30.4 %; Mean Corpuscular Hemoglobin 22.6 pg (25.0-34.0); Mean Corpuscular Volume 75.5 fL (80.0-100.0); Mean Platelet Volume 10.1 fL (9.4-12.4); Monocytes # (auto) 1.22 K/uL (0.11-0.59); Monocytes % (auto) 13.1 %; Neutrophils # (auto) 4.82 K/uL (1.40-6.50); Neutrophils % (auto) 52.1 %; Platelet Count 551 K/uL (130-400); RDW Coefficient of Variation 23.3 % (11.5-14.5); RDW Standard Deviation 61.4 fL (36.4-46.3); Red Blood Count 4.33 M/uL (4.20-5.40); White Blood Count 9.28 K/ul (4.8-10.8)
[2023-08-28 06:25] LABS: Albumin Globulin Ratio 1.2 (0.9-2); Albumin Level 3.7 gm/dl (3.4-5.0); BUN Creatinine Ratio 12.3 (10-20); Bilirubin,Total 0.2 mg/dl (0.2-1.0); Calcium 8.9 mg/dl (8.6-10.3); Est GFR (Non-African American) 121.7 ml/min; Potassium 3.8 mmol/L (3.5-5.1); Total Protein 6.7 gm/dl (6.0-8.3)
[2023-08-28 06:39] LABS: Anisocytosis Present
[2023-08-29 16:03] LABS: Cryptococcal Antigen Not Detected (Not Detected); Source CSF
[2023-08-30 20:41] LABS: Lyme IgG Band Pattern CSF DNR; Lyme IgG CSF NO BANDS DETECTED; Lyme IgM Band Pattern CSF DNR; Lyme IgM CSF NO BANDS DETECTED
[2023-08-31 10:17] LABS: CSF, LDH 14 U/L (<=25); Lyme DNA PCR CSF or Synovial Not Detected (Not Detected); Lyme DNA Source CSF; VDRL Qualitative CSF Nonreactive (Nonreactive)
== END 2023-08-28 12:45 | disposition home or self-care (01) | DRG 202 ==
LOC: ED 06:15 → EDINP 10:31 → SUATTDRO 10:31 → 2W 12:24

== ENCOUNTER 2024-04-13 12:53 | Inpatient (IN) ==
[2024-04-13 13:41] LABS: Appearance Urine Clear (Clear); Bacteria Urine Automated None Seen (None Seen); Bilirubin Urine Negative (Negative); Blood Urine Negative (Negative); Cast Urine Automated 0-2 /lpf (0-2); Color Urine Yellow; Glucose Urine UA Negative (Negative); Ketones Urine Negative (Negative); Leukocyte Esterase Urine Trace (Negative); Nitrite Urine Negative (Negative); Protein Urine Negative (Negative); RBC Urine Automated 0-2 /hpf (0-2); Specific Gravity Urine 1.011 (1.000-1.030); Urobilinogen Urine Negative (Negative); WBC Urine Automated 0-5 /hpf (0-5)
[2024-04-13 13:54] LABS: Pregnancy Test, Serum Negative (Negative)
[2024-04-13 13:59] LABS: Albumin Globulin Ratio 1.4 (0.9-2); Albumin Level 4.2 gm/dl (3.4-5.0); BUN Creatinine Ratio 13.2 (10-20); Bilirubin,Total 0.2 mg/dl (0.2-1.0); Calcium 9.7 mg/dl (8.6-10.3); Creatinine Clr Calc Pharmacy 121.4 ml/min; Est GFR (African American) 138.9 ml/min; Est GFR (Non-African American) 119.9 ml/min; Globulin 3.1 gm/dl (2.5-4.0); Potassium 4.5 mmol/L (3.5-5.1); Total Protein 7.3 gm/dl (6.0-8.3)
[2024-04-13 14:27] LABS: Thyroid Stimulating Hormone 1.764 uIu/ml (0.300-4.500)
[2024-04-13 14:38] LABS: Basophils # (auto) 0.05 K/uL (0.00-0.20); Basophils % (auto) 0.4 %; Eosinophils # (auto) 0.27 K/uL (0.00-0.50); Eosinophils % (auto) 2.1 %; Hematocrit (blood only) 33.5 % (37.0-47.0); Hemoglobin 10.5 g/dl (12.0-16.0); Immature Granulocytes # (auto) 0.04 K/uL (0.01-0.20); Immature Granulocytes % (auto) 0.3 %; Lymphocytes # (auto) 2.95 K/uL (1.20-3.40); Lymphocytes % (auto) 23.1 %; Mean Corpuscular Hemoglobin 23.4 pg (25.0-34.0); Mean Corpuscular Hgb Conc 31.3 g/dL (32.0-36.0); Mean Corpuscular Volume 74.6 fL (80.0-100.0); Mean Platelet Volume 9.9 fL (9.4-12.4); Monocytes # (auto) 1.11 K/uL (0.11-0.59); Monocytes % (auto) 8.7 %; Neutrophils # (auto) 8.33 K/uL (1.40-6.50); Neutrophils % (auto) 65.4 %; Platelet Count 505 K/uL (130-400); RDW Coefficient of Variation 15.5 % (11.5-14.5); RDW Standard Deviation 42.2 fL (36.4-46.3); Red Blood Count 4.49 M/uL (4.20-5.40); White Blood Count 12.75 K/ul (4.8-10.8)
[2024-04-13 14:44] LABS: Amphetamines+Metham, Urine Neg (Neg); Barbiturates, Urine Neg (Neg); Benzodiazepine, Urine Neg (Neg); Cocaine, Urine Neg (Neg); Fentanyl, Urine Neg (Neg); MDMA (Ecstacy), Urine Neg (Neg); Marijuana, Urine Neg (Neg); Methadone, Urine Neg (Neg); Opiate, Urine Neg (Neg); Phencyclidine, Urine Neg (Neg)
--- NOTE | 2024-04-13 15:47 | Emergency Department Note ---
Impression & Plan Mood disorder, Suicidal ideation ED Provider Note NAME: MEGAN HERNANDEZ AGE: 28 SEX: Female INFORMANT: Patient ED PROVIDER(S): Nando Ballesteros MD CHIEF COMPLAINT: Mental health evaluation PLAN: Disposition: Admitted Outpatient prescription management: none Referral: None MEDICAL DECISION MAKING: Patient presented because of suicidal ideation. She notes significant stress with school her chronic medical issues and felt like they boiled over. She had a benign physical examination. Her CBC revealed a stable anemia. She had a slight leukocytosis but not significantly different than prior. Urinalysis was unremarkable. Remainder of labs are negative. Patient was evaluated by plant quality manager. Patient would be best served by inpatient management and she is in agreement. Consultation was made with 3 S. patient was evaluated in the emergency department and was admitted for further management. I refer you to the EMR for further details. Care/management discussed with: ED psychiatric nurse case management Level of care consideration(s): After review of the information above and other included data, I feel the patient requires escalation of care to admission Triage Nursing notes: reviewed and agree them. Vital Signs: reviewed and remarkable for no significant abnormalities Additional History obtained from: none Chronic Medical/Social Conditions affecting care: Kira's, anxiety Prior/ Outside/ External records reviewed: none Differential Diagnosis: Mood disorder, infection, hypoglycemia, electrolyte abnormalities, cardiac sources, intracerebral event, toxicologic, trauma, neurologic, as well as other pathologies. Diagnostics, independently interpreted by me: ECG: none Cardiac Monitoring: none Medical decision rules: none Imaging studies: Deferred HPI: 28 year old Female arrives for mental health evaluation. This started recently and is worsening today. Patient states that she has a therapist but does not have a psychiatrist. She felt overwhelmed secondary to her demands at grad school as well as chronic autoimmune issues that have been going on for many months. Patient notes no sudden change in her health but she became suicidal. She had thoughts of hurting herself with a knife. Family did talk her down. The patient also notes the following associated symptoms, anxiety, feeling depressed. The patient has found no relieving factors. Current pain is rated as 0/10. Pt denies LOC, headache, fevers, chills, diaphoresis, visual changes, neck pain, chest pain, breathing difficulties, nausea, vomiting, current abdominal pain, back pain, melena, hematochezia, current urinary symptoms, numbness, weakness, lymphadenopathy, rash, or other complaints. PAST MEDICAL HISTORY: See Below, Kira's PAST SURGICAL HISTORY: See Below, SOCIAL HISTORY: See Below, [employer] student HOME MEDICATIONS: See Below ALLERGIES: See Below VITALS: See Below PHYSICAL EXAMINATION: GENERAL: Awake, alert, anxious-appearing, in no distress HENT: Normocephalic, atraumatic. Oropharynx unremarkable. EYES: Normal conjunctiva. Sclera non-icteric. NECK: Inspection normal. Non-tender. Supple. No nuchal rigidity. FROM. No masses. RESPIRATORY: Clear to auscultation. No wheezes. No rales. Normal respiratory effort. CARDIAC: Normal rate. Normal rhythm. No murmurs. No rubs. Extremities warm and well perfused. Pulses equal. No JVD. GI: Soft, non-distended. No tenderness to palpation. No rebound or guarding. No masses. RECTAL: Deferred. MUSCULOSKELETAL: Atraumatic. Chest examination reveals no tenderness. The back is symmetrical on inspection without obvious abnormality. There is no CVA tenderness to palpation. No joint edema. LOWER EXTREMITIES: Calves are equal size bilaterally and non-tender. No edema. No discoloration. NEURO: Normal sensorium. No sensory or motor deficits noted. SKIN: No rash or jaundice noted. PSYCH: Depressed mood. Labile affect. Positive SI. No hallucinations or delusions PROCEDURES: none CRITICAL CARE: none OBSERVATION NOTE: none Past Med/Surg History Problem List (Updated 04/13/24 @ 15:47 by Nando Ballesteros MD) Suicidal ideation (Acute) Mood disorder (Acute) Granulomatosis with polyangiitis Hematochezia COVID-19 (Acute) Breast mass Anal fissure Anemia Hypotension (Acute) Abdominal pain (Acute) C. difficile diarrhea Viral illness RSV (respiratory syncytial virus infection) Syncope Abnormal EKG (Acute) Hypocalcemia Dehydration (Acute) Respiratory alkalosis (Acute) Chest pain (Acute) AMS (altered mental status) (Acute) Surgical History (Updated 10/13/23 @ 09:57 by Al Zurita DO) History of breast biopsy H/O lymph node biopsy Family History Brother Asthma Father Diabetes Social History Smoking Status: Never smoker Second Hand Exposure: No; Do You Dip or Chew Tobacco: No; Hx Alcohol Use: Yes Alcohol type: hard liquor Hx Substance Use: No Preferred Language: Spanish Communication Ability: Effective Communication Ability Comment: good Process Steward Required: No Beliefs That Will Affect Care: None Current Living Situation: Significant Other Current Living Situation Comment: lives with fiance Feels Safe at Home: Yes Gender Identity: Female Assistive Devices: None Allergies Allergies Allergy/AdvReac Type Severity Reaction Status Date / Time metoclopramide [From Reglan] Allergy Severe TONGUE Verified 01/26/24 10:05 SWELLS, RESTLESSNESS tramadol AdvReac Intermediate COLD Verified 01/26/24 10:05 SWEATS, AGITATION, BLURRED VISION Home Meds Home Medications Medication Instructions Recorded Confirmed ergocalciferol (vitamin D2) 1,250 1,250 mcg PO WK 08/04/23 01/26/24 mcg (50,000 unit) capsule (Vitamin D2) folic acid 1 mg tablet 1 mg PO DAILY 08/04/23 01/26/24 methotrexate (PF) 15 mg/0.3 mL 15 mg subcut WK 08/04/23 01/26/24 subcutaneous auto-injector acetaminophen-pamabrom 500 mg-25 2 tab PO Q6H PRN 09/13/23 01/26/24 mg tablet (Midol) Results & Data (ED) Vital Signs Vital Signs - 24 hr 04/13/24 12:55 04/13/24 13:55 04/13/24 13:55 Temperature 36.8 C 36.6 C Temperature Source Skin Oral Pulse Rate 92 H Pulse Rate [Finger] 86 Pulse Rhythm Regular Pulse Rhythm [Finger] Regular Pulse Strength Normal Pulse Strength [Finger] Normal Respiratory Rate 18 18 Respiratory Effort / Characteristics Non-Labored Spontaneous Non-Labored Non-Labored Spontaneous Respiratory Depth Normal Normal Normal Respiratory Pattern Regular Regular Regular Blood Pressure 130/93 Blood Pressure [Left Arm] 138/88 Blood Pressure Mean 105 Blood Pressure Mean [Left Arm] 104 Blood Pressure Position Sitting Blood Pressure Position [Left Arm] Sitting Pulse Oximetry 99 99 Oxygen Delivery Method Room Air Room Air Sepsis Recent Fever Within 48 Hours No Sepsis New/Unexplained Change in Mental Status No Sepsis Action Taken by Nursing No Action Required Laboratory Data 04/13/24 14:07 04/13/24 13:18 Lab Results 04/13/24 04/13/24 04/13/24 Range/Units 13:18 13:28 14:07 WBC Cancelled 12.75 H RBC Cancelled 4.49 Hgb Cancelled 10.5 L Hct Cancelled 33.5 L MCV Cancelled 74.6 L MCH Cancelled 23.4 L MCHC Cancelled 31.3 L RDW Std Deviation Cancelled 42.2 RDW Coeff of Erika Cancelled 15.5 H Plt Count Cancelled 505 H MPV Cancelled 9.9 Immature Gran % (Auto) Cancelled 0.3 Neut % (Auto) Cancelled 65.4 Lymph % (Auto) Cancelled 23.1 [place] % (Auto) Cancelled 8.7 Eos % (Auto) Cancelled 2.1 Baso % (Auto) Cancelled 0.4 Neut # (Auto) Cancelled 8.33 H Lymph # (Auto) Cancelled 2.95 [place] # (Auto) Cancelled 1.11 H Eos # (Auto) Cancelled 0.27 Baso # (Auto) Cancelled 0.05 Immature Gran # (Auto) Cancelled 0.04 Absolute Nucleated RBC Cancelled Nucleated RBC % (auto) Cancelled Neutrophils % (Manual) Cancelled Band Neutrophils % Cancelled Lymphocytes % (Manual) Cancelled Prolymphocyte % Cancelled Reactive Lymphs % (Man) Cancelled Monocytes % (Manual) Cancelled Eosinophils % (Manual) Cancelled Basophils % (Manual) Cancelled Metamyelocytes % (Man) Cancelled Myelocytes % (Man) Cancelled Promyelocytes % (Man) Cancelled Blast Cells % (Manual) Cancelled Plasma Cell % (Manual) Cancelled Other Cells % Cancelled Nucleated RBC % Cancelled Neutrophils # (Manual) Cancelled Band Neutrophils # Cancelled Total Absolute Neuts Cancelled Lymphocytes # (Manual) Cancelled Prolymphocyte # Cancelled Reactive Lymphs # Cancelled Total Abs Lymphocytes Cancelled Monocytes # (Manual) Cancelled Eosinophils # (Manual) Cancelled Basophils # (Manual) Cancelled Metamyelocytes # (Man) Cancelled Myelocytes # (Manual) Cancelled Promyelocytes # (Man) Cancelled Blast Cells # (Man) Cancelled Plasma Cell # (Manual) Cancelled Other Cells # Cancelled Nucleated RBCs # (Man) Cancelled Hypersegmented Neuts Cancelled Hyposegmented Neuts Cancelled Hypogranular Neuts Cancelled Large Granular Lymphs Cancelled # Lrg Granular Lymphs Cancelled Hairy Cells Cancelled Smudge Cells Cancelled Toxic Granulation Cancelled Toxic Vacuolation Cancelled Dohle Bodies Cancelled Delmer Rods Cancelled Platelet Estimate Cancelled Hypogranular Platelets Cancelled Giant Platelets Cancelled Platelet Satelliting Cancelled RBC Morphology Cancelled Polychromasia Cancelled Hypochromasia Cancelled Poikilocytosis Cancelled Basophilic Stippling Cancelled Anisocytosis Cancelled Microcytosis Cancelled Macrocytosis Cancelled Spherocytes Cancelled Pappenheimer Bodies Cancelled Sickle Cells Cancelled Target Cells Cancelled Tear Drop Cells Cancelled Ovalocytes Cancelled Stomatocytes Cancelled [place] Bodies Cancelled Echinocytes Cancelled Acanthocytes (Spur) Cancelled Rouleaux Cancelled RBC Agglutinates Cancelled Schistocytes Cancelled Sezary Cell Cancelled Sodium 136 (136-145) mmol/L Potassium 4.5 (3.5-5.1) mmol/L Chloride 103 (98-107) mmol/L Carbon Dioxide 25 (21-32) mmol/L Anion Gap 8 (3-11) BUN 9 (6-23) mg/dl Creatinine 0.68 (0.6-1.2) mg/dl Est Cr Clr Drug Dosing 121.4 ml/min Est GFR ( Amer) 138.9 ml/min Est GFR (Non-Af Amer) 119.9 ml/min BUN/Creatinine Ratio 13.2 (10-20) Glucose 85 (70-99(Fasting)) mg/dl Calcium 9.7 (8.6-10.3) mg/dl Total Bilirubin 0.2 (0.2-1.0) mg/dl AST 15 (13-39) U/L ALT 8 (7-52) U/L Alkaline Phosphatase 86 (34-104) U/L Total Protein 7.3 (6.0-8.3) gm/dl Albumin 4.2 (3.4-5.0) gm/dl Globulin 3.1 (2.5-4.0) gm/dl Albumin/Globulin Ratio 1.4 (0.9-2) TSH 1.764 (0.300-4.500) uIu/ml HCG, Qual Negative (Negative) Ethyl Alcohol mg/dL < 10.0 (<10.0) mg/dl SARS-CoV-2, RNA, NAAT NEGATIVE (NEGATIVE) Blood Parasites ID Cancelled Discharge Plan Visit Data Chief Complaint: Mental Health Evaluation Stated Complaint: [facility] ED Provider: Nando Ballesteros Discharge Problem: Mood disorder, Suicidal ideation Patient Disposition: Home - Self-Care Discharge Instructions Interventions: ED Discharge Assessment Last Done: 04/13/24 16:44
[2024-04-13] MEDS ORDERED: ACETAMINOPHEN 325 MG TAB PO PRN (16:34)
[2024-04-13] MEDS ORDERED: MAGNESIUM HYDROXIDE SUSP 30 ML UDC PO PRN (16:34)
[2024-04-13] MEDS ORDERED: hydrOXYzine HCl 25 MG TAB PO PRN ×2 (16:34)
[2024-04-13] MEDS ORDERED: SODIUM CHLORIDE 0.65% NA SOLN 45 ML (OCEAN) PRN (16:34)
[2024-04-13] MEDS ORDERED: BISMUTH SUBSALICYLATE LIQD 236 ML PO PRN (16:34)
[2024-04-13] MEDS ORDERED: ALUMINUM/MAGNESIUM SUSP 30 ML UDC PO PRN (16:34)
[2024-04-13 18:13] LABS: Acetaminophen < 3 ug/ml (10-30); Salicylate < 3.0 mg/dl (3.0-30)
[2024-04-13 19:26] VITALS: PULSE 86
[2024-04-14 06:52] VITALS: RESP 16
--- NOTE | 2024-04-14 09:39 | History & Physical ---
Date of Service April 14, 2024 Impression / Recommendations Impression MEGAN HERNANDEZ is a 28-year-old woman who currently lives in [place] with her fiance, has a history of ELIZABETH, granulomatosis with polyangiitis, and was admitted on 04/13/24 16:34 on a 201 voluntary commitment for SI with thoughts of using a knife. Diagnostically consistent with unspecified depression with differential including atypical depression vs MDD vs adjustment disorder with depressed and anxious mood vs trauma and stressor related disorder vs PTSD vs acute stress disorder. Seems that past medical complications and news of possible cancerous lesion in her lung, in addition to her academic stressors, lead to acute stress response with resultant SI. Discussed medication treatment options in detail. Discussed risks, benefits and alternatives. She is interested in an SSRI but wants to consider which one- reviewed sertraline vs fluoxetine vs escitalopram. Reviewed side effects including but not limited to: GI, HERNANDEZ, sexual side effects, and counseled on black box warning of potential for emergence of or increased SI and need to let staff know should this occur or should they feel unsafe. Also discussed importance of seeking emergency care following discharge if this side effect occurs in the future. MNPR due to autoimmune condition on immunosuppression and increased community prevalence of COVID-19. Overall I spent a total of 90 minutes for this admission including review of chart records, review of labwork, direct evaluation of the patient, counseling the patient, ordering medication, risk assessment, discussion with the psychiatric liason RN and documentation in the electronic health record. (1) ELIZABETH (generalized anxiety disorder): (2) Depression with suicidal ideation: (3) Trauma and stressor-related disorder: (4) Acute stress disorder: Plan 04/14/2024: The patient was admitted to the [facility] ([facility] mental [facility] unit) on q15 min checks (behavioral with suicide precautions) for safety. The patient will participate in group, recreational, and milieu therapies and will be offered additional individual and family sessions as clinically appropriate. -consider initiation of SSRI -she would like to try to switch to in-person therapy Inventory Assets Strengths: supportive relationships, willing to get treatment Needs: safety and stabilization, medication adjustment, additional coping skills, increased outpatient services Suicide Risk Level Suicide Risk Level: Moderate (q15 min suicide checks) (SI with thoughts of a plan prior to admission but now denying SI, feels well supported, feels safe in the hospital and feels able to ask for help) Risk Factors Assessment Male: No : No Do You Have Access To A Gun?: No Health Problems: Yes Mental Health Diagnoses: Yes Substance Use Disorders: No Previous Attempt: No Family History of Suicide: Yes (brother with history of an attempt) Previous Psychiatric Hospitalization: No Protective Factors Assessment Employed: Yes Stable Relationships: Yes Supportive Family: Yes Psychiatric History Identifying Data MEGAN HERNANDEZ is a 28-year-old woman who currently lives in [place] with her fiance, has a history of ELIZABETH, granulomatosis with polyangiitis, and was admitted on 04/13/24 16:34 on a 201 voluntary commitment for SI with thoughts of using a knife. Chief Complaint "My emotional mind was the leader and couldn't tap into my logical mind". History of Present Illness She presents for psychiatric admission for worsening anxiety and acute onset of SI with thoughts of hurting herself with a knife in the context of multiple psychosocial stressors including health issues and intense academic stress. She suspects that the culmination of multiple stressors lead her to feel like "it's too much" and that brought about the thoughts of suicide. However, in the moment she was able to reach out to her mom and fiance to get support before acting on these thoughts. The thoughts of having a chance to "rest" or wondering about "disappearing" had never happened before and were startling to her but she thinks this came about due to the intensity of multiple stressors including medical stress of possible cancerous lung nodule and a very stressful lab meeting that morning. Today she is feeling less distressed on having some space to reflect and feels glad to be alive. She endorses increased anxiety with panic symptoms 1-2 times every other week. These "anxious attacks" present with hand sweating, shakiness/chills, thoughts feel scattered/racing. Over the last two weeks her sleep has been disrupted due to needing to wake up early to get work done (typically sleeping from 7pm-4am). She reflects that she hasn't been able to attend to any self-care or leisure activities. She doesn't feel like she has been having severe depression but has been experiencing a lower mood than normal with the additional stressors including some periods of hopelessness about "here's another thing" and the piling on additional stressors. Has trauma symptoms related to autoimmune condition and past serious medical sequelae from this. She's had prolonged hospitalizations in the past and two hospitalizations this year including fro UTIs and C diff with blood transfusions and brief delirium. She is not currently prescribed any psychiatric medications. Psychiatric ROS notable for no current nor history of symptoms of janina, psychosis, OCD, eating disorder nor self-harm. Additional history per psych liason RN note on admission from 04/13/2024: "She reports that she has been having panic/anxiety attacks this week with passive SI. 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 She has been stressed more than usual with an overwhelming workload/tests. She has an auto immune disease ( Kira's Vasculitis) with her most recent scan showing a suspicious nodule on her lung. She feels this was a combination of events that caused her to feel overwhelmed and wanting to end her life. She reports that she became very anxious with a call to her mom. Her mother was able to calm her down today and get her back on track per patient but then later on this day the SI feelings came back and she felt like she wanted to cut herself with a kitchen knife. She admits to holding the knife in her hand. She reports that she did call her boyfriend and then he called the police to do a wellness check, both parties ended up at the apartment at the same time and she agreed to come to the ER for eval. She sees a therapist weekly for her anxiety ([facility]) Therapist (Earnestine Hernandez) She is not on any medications for depression/Anxiety. She denies taking any meds or ever taking any medication for mental health. She has difficulty staying asleep, gets 3-4 hours average a night. (Denies taking meds for sleep) She denies substance abuse and is a social drinker. Never a smoker. She denies HI/SI hallucinations or delusions. Her mother has depression and her younger brother attempted suicide with pills years ago. She denies access to guns. She denies any past traumas triggering her event today. She is willing for in-patient treatment and states, "I think this will help" She has never been in- patient prior to this admission." Past Psychiatric History Current Psychiatric Diagnosis: Depression, Anxiety Outpatient Services: therapist Earnestine Hernandez weekly via telemedicine through [facility] Previous Psych Admissions: none Do You Have Access To A Gun?: No History of Previous Suicide Attempt: No Past Medication Trials: none Past Head Trauma/Neuro History History of Concussion/Seizure: No Allergies Allergy/AdvReac Type Severity Reaction Status Date / Time metoclopramide [From Reglan] Allergy Severe TONGUE Verified 01/26/24 10:05 SWELLS, RESTLESSNESS tramadol AdvReac Intermediate COLD Verified 01/26/24 10:05 SWEATS, AGITATION, BLURRED VISION Home Medications Medication Instructions Recorded Confirmed Type ergocalciferol (vitamin D2) 1,250 1,250 mcg PO WK 08/04/23 01/26/24 History mcg (50,000 unit) capsule (Vitamin D2) folic acid 1 mg tablet 1 mg PO DAILY 08/04/23 01/26/24 History methotrexate (PF) 15 mg/0.3 mL 15 mg subcut WK 08/04/23 01/26/24 History subcutaneous auto-injector acetaminophen-pamabrom 500 mg-25 2 tab PO Q6H PRN 09/13/23 01/26/24 History mg tablet (Midol) Family History Family History of: Anxiety Family Mental Health History Comment: Older brother attempted suicide when he was 12 y/o.Mother hx of anxiety and father hx of depression.r Alcohol History Hx of Alcohol Use Over the Past 12 Months: No AUDIT Total Score: 1 Very rare alcohol use 1-2 times per month Smoking Use Have You Smoked or Used Tobacco Products in the Last 30 Days: No Smoking Status: Never smoker Smoking packs per day: 0 Substance History Hx of Prescription Med Misuse Over the Past 12 Months: No Hx of Over the Counter Med Misuse Over the Past 12 Months: No Hx of Inhalent Misuse Over the Past 12 Months: No Hx of Organic Substance Use Over the Past 12 Months: No Hx of Illegal Substances/Street Drug Use Over Past 12 Months: No Problems as a Result of Past Substance Use: None Identified Problems as a Result of Past Substance Use Comments: n/a Personal History Living Arrangements: Apartment Highest Grade Completed: Graduate School Highest Grade Completed Comment: 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 Employment Status: Student Marital Status: Living w/ Signif. Other Number Of Children: 0 Beliefs That Will Affect Care: None Current Legal Problems: No Hx Legal Problems: No Hx Traumatic Life Events: Yes Patient History Surgical History History of breast biopsy H/O lymph node biopsy Family History Brother Asthma Father Diabetes Social History Smoking Status: Never smoker Second Hand Exposure: No; Do You Dip or Chew Tobacco: No; Hx Alcohol Use: Yes Alcohol type: hard liquor Hx Substance Use: No Preferred Language: Latvian Communication Ability: Effective Communication Ability Comment: good Licensed Veterinary Technician Required: No Beliefs That Will Affect Care: None Current Living Situation: Significant Other Current Living Situation Comment: lives with fiance Feels Safe at Home: Yes Gender Identity: Female Assistive Devices: None Review of Systems Review of Systems: All systems reviewed & are unremarkable except as noted in HPI & below (chronic cough over recent weeks) Physical Exam Psychiatric: Orientation: alert and oriented x 3 Apperance: appropriately dressed and appropriately groomed Eye Contact: good eye contact Motor Behavior: no abnormal motor movements Speech: normal rate/rhythm/volume of speech Affect: + anxious affect and + tearful affect (reflecting on events) Mood: + depressed mood and + anxious mood Thought Process: goal directed thought process Thought Content: reality based without delusions and + guilt Suicidal Thoughts: denies suicidal thoughts (none since admission), denies suicidal plan and denies suicidal intent Homicidal Thoughts: denies homicidal thoughts Hallucinations: no auditory hallucinations and no visual hallucinations Cognition: recent memory grossly intact, remote memory grossly intact, attention grossly intact and language grossly intact Estimated Intelligence: consistent with education level Insight: good insight Judgment: + fair judgement Vital Signs (Past 24 Hours): Last Vital Signs Temp 36.9 C 04/14/24 06:51 Pulse 86 04/13/24 13:55 Resp 16 04/14/24 06:51 BP 117/80 04/14/24 06:51 Pulse Ox 99 04/14/24 06:51 O2 Del Method Room Air 04/14/24 06:51 Exam Statement: A physical exam was performed in the ED by Dr. Ballesteros for the purposes of medical clearance. I accept that physical as correct and adequate for the purposes of the inpatient physical exam. Results & Data ([facility] [[email or web address]]) Laboratory Results Laboratory Results - last 24 hr 09/04/13/24 04/13/24 13:18 13:28 14:07 WBC Cancelled 12.75 H RBC Cancelled 4.49 Hgb Cancelled 10.5 L Hct Cancelled 33.5 L MCV Cancelled 74.6 L MCH Cancelled 23.4 L MCHC Cancelled 31.3 L RDW Std Deviation Cancelled 42.2 RDW Coeff of Erika Cancelled 15.5 H Plt Count Cancelled 505 H MPV Cancelled 9.9 Immature Gran % (Auto) Cancelled 0.3 Neut % (Auto) Cancelled 65.4 Lymph % (Auto) Cancelled 23.1 [place] % (Auto) Cancelled 8.7 Eos % (Auto) Cancelled 2.1 Baso % (Auto) Cancelled 0.4 Neut # (Auto) Cancelled 8.33 H Lymph # (Auto) Cancelled 2.95 [place] # (Auto) Cancelled 1.11 H Eos # (Auto) Cancelled 0.27 Baso # (Auto) Cancelled 0.05 Immature Gran # (Auto) Cancelled 0.04 Absolute Nucleated RBC Cancelled Nucleated RBC % (auto) Cancelled Neutrophils % (Manual) Cancelled Band Neutrophils % Cancelled Lymphocytes % (Manual) Cancelled Prolymphocyte % Cancelled Reactive Lymphs % (Man) Cancelled Monocytes % (Manual) Cancelled Eosinophils % (Manual) Cancelled Basophils % (Manual) Cancelled Metamyelocytes % (Man) Cancelled Myelocytes % (Man) Cancelled Promyelocytes % (Man) Cancelled Blast Cells % (Manual) Cancelled Plasma Cell % (Manual) Cancelled Other Cells % Cancelled Nucleated RBC % Cancelled Neutrophils # (Manual) Cancelled Band Neutrophils # Cancelled Total Absolute Neuts Cancelled Lymphocytes # (Manual) Cancelled Prolymphocyte # Cancelled Reactive Lymphs # Cancelled Total Abs Lymphocytes Cancelled Monocytes # (Manual) Cancelled Eosinophils # (Manual) Cancelled Basophils # (Manual) Cancelled Metamyelocytes # (Man) Cancelled Myelocytes # (Manual) Cancelled Promyelocytes # (Man) Cancelled Blast Cells # (Man) Cancelled Plasma Cell # (Manual) Cancelled Other Cells # Cancelled Nucleated RBCs # (Man) Cancelled Hypersegmented Neuts Cancelled Hyposegmented Neuts Cancelled Hypogranular Neuts Cancelled Large Granular Lymphs Cancelled # Lrg Granular Lymphs Cancelled Hairy Cells Cancelled Smudge Cells Cancelled Toxic Granulation Cancelled Toxic Vacuolation Cancelled Dohle Bodies Cancelled Delmer Rods Cancelled Platelet Estimate Cancelled Hypogranular Platelets Cancelled Giant Platelets Cancelled Platelet Satelliting Cancelled RBC Morphology Cancelled Polychromasia Cancelled Hypochromasia Cancelled Poikilocytosis Cancelled Basophilic Stippling Cancelled Anisocytosis Cancelled Microcytosis Cancelled Macrocytosis Cancelled Spherocytes Cancelled Pappenheimer Bodies Cancelled Sickle Cells Cancelled Target Cells Cancelled Tear Drop Cells Cancelled Ovalocytes Cancelled Stomatocytes Cancelled Carrillo-Foxfield Bodies Cancelled Echinocytes Cancelled Acanthocytes (Spur) Cancelled Rouleaux Cancelled RBC Agglutinates Cancelled Schistocytes Cancelled Sezary Cell Cancelled Sodium 136 Potassium 4.5 Chloride 103 Carbon Dioxide 25 Anion Gap 8 BUN 9 Creatinine 0.68 Est Cr Clr Drug Dosing 121.4 Est GFR ( Amer) 138.9 Est GFR (Non-Af Amer) 119.9 BUN/Creatinine Ratio 13.2 Glucose 85 Calcium 9.7 Total Bilirubin 0.2 AST 15 ALT 8 Alkaline Phosphatase 86 Total Protein 7.3 Albumin 4.2 Globulin 3.1 Albumin/Globulin Ratio 1.4 TSH 1.764 HCG, Qual Negative Urine Color Urine Appearance Urine pH Ur Specific [place] Urine Protein Urine Glucose (UA) Urine Ketones Urine Blood Urine Nitrite Urine Bilirubin Urine Urobilinogen Ur Leukocyte Esterase Urine WBC (Auto) Urine RBC (Auto) U Hyaline Cast (Auto) U Epithel Cells (Auto) Urine Bacteria (Auto) Salicylates Urine Opiates Screen Ur Methadone, Qual Urine Fentanyl Screen Acetaminophen Urine Barbiturates Ur Phencyclidine (PCP) U Amphetamin/Meth Scrn MDMA (Ecstasy) Screen U Benzodiazepines Scrn Ur Cocaine Metabolite U Marijuana (THC) Screen Ethyl Alcohol mg/dL < 10.0 SARS-CoV-2, RNA, NAAT NEGATIVE Blood Parasites ID Cancelled 04/13/24 04/13/24 17:38 Unknown WBC RBC Hgb Hct MCV MCH MCHC RDW Std Deviation RDW Coeff of Erika Plt Count MPV Immature Gran % (Auto) Neut % (Auto) Lymph % (Auto) [place] % (Auto) Eos % (Auto) Baso % (Auto) Neut # (Auto) Lymph # (Auto) [place] # (Auto) Eos # (Auto) Baso # (Auto) Immature Gran # (Auto) Absolute Nucleated RBC Nucleated RBC % (auto) Neutrophils % (Manual) Band Neutrophils % Lymphocytes % (Manual) Prolymphocyte % Reactive Lymphs % (Man) Monocytes % (Manual) Eosinophils % (Manual) Basophils % (Manual) Metamyelocytes % (Man) Myelocytes % (Man) Promyelocytes % (Man) Blast Cells % (Manual) Plasma Cell % (Manual) Other Cells % Nucleated RBC % Neutrophils # (Manual) Band Neutrophils # Total Absolute Neuts Lymphocytes # (Manual) Prolymphocyte # Reactive Lymphs # Total Abs Lymphocytes Monocytes # (Manual) Eosinophils # (Manual) Basophils # (Manual) Metamyelocytes # (Man) Myelocytes # (Manual) Promyelocytes # (Man) Blast Cells # (Man) Plasma Cell # (Manual) Other Cells # Nucleated RBCs # (Man) Hypersegmented Neuts Hyposegmented Neuts Hypogranular Neuts Large Granular Lymphs # Lrg Granular Lymphs Hairy Cells Smudge Cells Toxic Granulation Toxic Vacuolation Dohle Bodies Delmer Rods Platelet Estimate Hypogranular Platelets Giant Platelets Platelet Satelliting RBC Morphology Polychromasia Hypochromasia Poikilocytosis Basophilic Stippling Anisocytosis Microcytosis Macrocytosis Spherocytes Pappenheimer Bodies Sickle Cells Target Cells Tear Drop Cells Ovalocytes Stomatocytes Carrillo-[place] Bodies Echinocytes Acanthocytes (Spur) Rouleaux RBC Agglutinates Schistocytes Sezary Cell Sodium Potassium Chloride Carbon Dioxide Anion Gap BUN Creatinine Est Cr Clr Drug Dosing Est GFR ( Amer) Est GFR (Non-Af Amer) BUN/Creatinine Ratio Glucose Calcium Total Bilirubin AST ALT Alkaline Phosphatase Total Protein Albumin Globulin Albumin/Globulin Ratio TSH HCG, Qual Urine Color Yellow Urine Appearance Clear Urine pH 7.0 Ur Specific [place] 1.011 Urine Protein Negative Urine Glucose (UA) Negative Urine Ketones Negative Urine Blood Negative Urine Nitrite Negative Urine Bilirubin Negative Urine Urobilinogen Negative Ur Leukocyte Esterase Trace H Urine WBC (Auto) 0-5 Urine RBC (Auto) 0-2 U Hyaline Cast (Auto) 0-2 U Epithel Cells (Auto) 3-5 H Urine Bacteria (Auto) None Seen Salicylates < 3.0 L Urine Opiates Screen Neg Ur Methadone, Qual Neg Urine Fentanyl Screen Neg Acetaminophen < 3 L Urine Barbiturates Neg Ur Phencyclidine (PCP) Neg U Amphetamin/Meth Scrn Neg MDMA (Ecstasy) Screen Neg U Benzodiazepines Scrn Neg Ur Cocaine Metabolite Neg U Marijuana (THC) Screen Neg Ethyl Alcohol mg/dL SARS-CoV-2, RNA, NAAT Blood Parasites ID Current Inpatient Medications Current Inpatient Medications: Current Inpatient Medications Acetaminophen (Acetaminophen 325 Mg Tab) 650 mg PO Q4H PRN PRN Reason: Headache or Minor Fever Stop: 05/13/24 16:33 Al Hydrox/Mg Hydrox/Simethicone (Aluminum/Magnesium Susp 30 Ml Udc) 30 ml PO Q4H PRN PRN Reason: GI Upset Stop: 05/13/24 16:33 Bismuth Subsalicylate (Bismuth Subsalicylate Liqd 236 Ml) 15 ml PO PRN PRN PRN Reason: Loose Stool Stop: 05/13/24 16:33 Hydroxyzine HCl (Hydroxyzine Hcl 25 Mg Tab) 50 mg PO HSZ PRN PRN Reason: Insomnia Stop: 05/13/24 16:33 Hydroxyzine HCl (Hydroxyzine Hcl 25 Mg Tab) 25 mg PO Q4H PRN PRN Reason: Anxiety Stop: 05/13/24 16:33 Magnesium Hydroxide (Magnesium Hydroxide Susp 30 Ml Udc) 30 ml PO DAILY PRN PRN Reason: Constipation Stop: 05/13/24 16:33 Sodium Chloride (Sodium Chloride 0.65% Na Soln 45 Ml ([place])) 1 - 2 sprays NA PRN PRN PRN Reason: Nasal Dryness/Congestion Stop: 05/13/24 16:33
[2024-04-14] MEDS: FOLIC ACID 1 MG TAB PO SCH (11:50)
[2024-04-15 06:29] VITALS: BP 112/76; TEMP 97.8; O2SAT 98
--- NOTE | 2024-04-15 11:22 | Discharge Summary ---
Date of Service April 15, 2024 History of Present Illness She presents for psychiatric admission for worsening anxiety and acute onset of SI with thoughts of hurting herself with a knife in the context of multiple psychosocial stressors including health issues and intense academic stress. She suspects that the culmination of multiple stressors lead her to feel like "it's too much" and that brought about the thoughts of suicide. However, in the moment she was able to reach out to her mom and fiance to get support before acting on these thoughts. The thoughts of having a chance to "rest" or wondering about "disappearing" had never happened before and were startling to her but she thinks this came about due to the intensity of multiple stressors including medical stress of possible cancerous lung nodule and a very stressful lab meeting that morning. Today she is feeling less distressed on having some space to reflect and feels glad to be alive. She endorses increased anxiety with panic symptoms 1-2 times every other week. These "anxious attacks" present with hand sweating, shakiness/chills, thoughts feel scattered/racing. Over the last two weeks her sleep has been disrupted due to needing to wake up early to get work done (typically sleeping from 7pm-4am). She reflects that she hasn't been able to attend to any self-care or leisure activities. She doesn't feel like she has been having severe depression but has been experiencing a lower mood than normal with the additional stressors including some periods of hopelessness about "here's another thing" and the piling on additional stressors. Has trauma symptoms related to autoimmune condition and past serious medical sequelae from this. She's had prolonged hospitalizations in the past and two hospitalizations this year including fro UTIs and C diff with blood transfusions and brief delirium. She is not currently prescribed any psychiatric medications. Psychiatric ROS notable for no current nor history of symptoms of janina, psychosis, OCD, eating disorder nor self-harm. Additional history per psych liason RN note on admission from 04/13/2024: "She reports that she has been having panic/anxiety attacks this week with passive SI. 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 She has been stressed more than usual with an overwhelming workload/tests. She has an auto immune disease ( Kira's Vasculitis) with her most recent scan showing a suspicious nodule on her lung. She feels this was a combination of events that caused her to feel overwhelmed and wanting to end her life. She reports that she became very anxious with a call to her mom. Her mother was able to calm her down today and get her back on track per patient but then later on this day the SI feelings came back and she felt like she wanted to cut herself with a kitchen knife. She admits to holding the knife in her hand. She reports that she did call her boyfriend and then he called the police to do a wellness check, both parties ended up at the apartment at the same time and she agreed to come to the ER for eval. She sees a therapist weekly for her anxiety ([facility]) Therapist (Earnestine Hernandez) She is not on any medications for depression/Anxiety. She denies taking any meds or ever taking any medication for mental health. She has difficulty staying asleep, gets 3-4 hours average a night. (Denies taking meds for sleep) She denies substance abuse and is a social drinker. Never a smoker. She denies HI/SI hallucinations or delusions. Her mother has depression and her younger brother attempted suicide with pills years ago. She denies access to guns. She denies any past traumas triggering her event today. She is willing for in-patient treatment and states, "I think this will help" She has never been in- patient prior to this admission." Physical Exam Vital Signs (Past 24 Hours) Last Vital Signs Temp 36.6 C 04/15/24 06:00 Pulse 86 04/15/24 06:00 Resp 16 04/15/24 06:00 BP 112/76 04/15/24 06:00 Pulse Ox 98 04/15/24 06:00 O2 Del Method Room Air 04/15/24 06:00 Principal Diagnosis Unspecified Depressive Disorder, Trauma and stressor-related disorder Psychiatric Data See daily stay summary. In short, patient was engaged with the social/therapeutic milieu of the unit, safety was maintained and the patient was cooperative with care. Medication changes included Vistaril 25mg daily prn for anxiety/insomnia. A support session was not held due to her preference for a weekend discharge but she visited with her fiance and communicated with her mother during her admission and safety plan was completed prior to discharge. She participated in safety planning and in discussions about ways to seek support and recognizing warning signs and utilizing coping skills. Reviewed ways to have her safety plan and contacts easily available should thoughts of SI re- emerge in the future. Reviewed importance of seeking emergency care should SI intensify, worsen or should they feel unsafe in the future which she agrees to do. On the day of discharge she stated her mood was "good, a little anxious" and remained future-oriented including being with her fiance, catching up on emails and work, relaxing and engaging in aftercare appointments for therapy. Day of Discharge Assessment Today the patient voices readiness for discharge. They note improvement in mood and anxiety. They deny thoughts of harm to self or others. Thoughts are organized and they are clinically improved from admission. There is no evidence of psychosis. They improved in the hospital with support and medication adjustments. They agree to take medications as prescribed and keep follow-up appointments. At the time of the discharge they are deemed to be stable and appropriate for outpatient level of care. They are not deemed to be at imminent risk of harm to self or others. They are aware of emergency and crisis services. Knows to call 911 or go to nearest emergency care center if in a crisis which cannot be handled as an outpatient. Suicide risk assessment: Acute risk is low given improvement in mood and denial of SI, lack of access to lethal means, hopefulness. Chronic risk is low to moderate given some non-modifiable risk factors: psychiatric co-morbid diagnoses, chronic illness but also with many strong protective factors including: employed/ student, good social support, sense of responsibility to family and social supports, outpatient care in place, positive coping skills, positive problem solving, willingness to engage with treatment and self-observation. Counseled on ways to reduce acute and chronic risk including engaging with outpatient providers, using safety plan if needed, utilizing supports, using prn medication, and using coping skills. Modifiable risk factors of SI and depression were addressed during hospitalization through development of new coping skills, safety planning, and medication addition of prn Vistaril and discussion of option for future SSRI trial if therapy is not offering enough benefit. Discharge physical exam: See admission H&P, MSE per above and day of discharge summary. Overall, I spent a total of 40 minutes on this case including meeting with the patient, reviewing the chart, nursing report, multidisciplinary team meeting, discharge orders, anticipatory planning, safety planning, risk assessment and documentation. Transition of Care Transition Of Care Record: was reviewed with the patient Advance Directives Advance Directives Information Provided: No Mental Health Advance Directive: No Advance Directives on File: No Living Will: No Power of Geothermal Field Technician: No Advance Directives Reason:: Declines as Mental Health Visit. Suicide Risk Level Suicide Risk Level Comments: Acute risk is low, see further assessment above Risk Factors Assessment Male: No : No Do You Have Access To A Gun?: No Health Problems: Yes Mental Health Diagnoses: Yes Substance Use Disorders: No Previous Attempt: No Family History of Suicide: Yes (brother with history of an attempt) Previous Psychiatric Hospitalization: No Hopelessness: No Protective Factors Assessment Employed: Yes Stable Relationships: Yes Supportive Family: Yes Discharge Data Lab Results 04/13/24 04/13/24 04/13/24 13:18 13:28 14:07 WBC Cancelled 12.75 H RBC Cancelled 4.49 Hgb Cancelled 10.5 L Hct Cancelled 33.5 L MCV Cancelled 74.6 L MCH Cancelled 23.4 L MCHC Cancelled 31.3 L RDW Std Deviation Cancelled 42.2 RDW Coeff of Erika Cancelled 15.5 H Plt Count Cancelled 505 H MPV Cancelled 9.9 Immature Gran % (Auto) Cancelled 0.3 Neut % (Auto) Cancelled 65.4 Lymph % (Auto) Cancelled 23.1 Norton % (Auto) Cancelled 8.7 Eos % (Auto) Cancelled 2.1 Baso % (Auto) Cancelled 0.4 Neut # (Auto) Cancelled 8.33 H Lymph # (Auto) Cancelled 2.95 Norton # (Auto) Cancelled 1.11 H Eos # (Auto) Cancelled 0.27 Baso # (Auto) Cancelled 0.05 Immature Gran # (Auto) Cancelled 0.04 Absolute Nucleated RBC Cancelled Nucleated RBC % (auto) Cancelled Neutrophils % (Manual) Cancelled Band Neutrophils % Cancelled Lymphocytes % (Manual) Cancelled Prolymphocyte % Cancelled Reactive Lymphs % (Man) Cancelled Monocytes % (Manual) Cancelled Eosinophils % (Manual) Cancelled Basophils % (Manual) Cancelled Metamyelocytes % (Man) Cancelled Myelocytes % (Man) Cancelled Promyelocytes % (Man) Cancelled Blast Cells % (Manual) Cancelled Plasma Cell % (Manual) Cancelled Other Cells % Cancelled Nucleated RBC % Cancelled Neutrophils # (Manual) Cancelled Band Neutrophils # Cancelled Total Absolute Neuts Cancelled Lymphocytes # (Manual) Cancelled Prolymphocyte # Cancelled Reactive Lymphs # Cancelled Total Abs Lymphocytes Cancelled Monocytes # (Manual) Cancelled Eosinophils # (Manual) Cancelled Basophils # (Manual) Cancelled Metamyelocytes # (Man) Cancelled Myelocytes # (Manual) Cancelled Promyelocytes # (Man) Cancelled Blast Cells # (Man) Cancelled Plasma Cell # (Manual) Cancelled Other Cells # Cancelled Nucleated RBCs # (Man) Cancelled Hypersegmented Neuts Cancelled Hyposegmented Neuts Cancelled Hypogranular Neuts Cancelled Large Granular Lymphs Cancelled # Lrg Granular Lymphs Cancelled Hairy Cells Cancelled Smudge Cells Cancelled Toxic Granulation Cancelled Toxic Vacuolation Cancelled Dohle Bodies Cancelled Delmer Rods Cancelled Platelet Estimate Cancelled Hypogranular Platelets Cancelled Giant Platelets Cancelled Platelet Satelliting Cancelled RBC Morphology Cancelled Polychromasia Cancelled Hypochromasia Cancelled Poikilocytosis Cancelled Basophilic Stippling Cancelled Anisocytosis Cancelled Microcytosis Cancelled Macrocytosis Cancelled Spherocytes Cancelled Pappenheimer Bodies Cancelled Sickle Cells Cancelled Target Cells Cancelled Tear Drop Cells Cancelled Ovalocytes Cancelled Stomatocytes Cancelled [place] Bodies Cancelled Echinocytes Cancelled Acanthocytes (Spur) Cancelled Rouleaux Cancelled RBC Agglutinates Cancelled Schistocytes Cancelled Sezary Cell Cancelled Sodium 136 Potassium 4.5 Chloride 103 Carbon Dioxide 25 Anion Gap 8 BUN 9 Creatinine 0.68 Est Cr Clr Drug Dosing 121.4 Est GFR ( Amer) 138.9 Est GFR (Non-Af Amer) 119.9 BUN/Creatinine Ratio 13.2 Glucose 85 Calcium 9.7 Total Bilirubin 0.2 AST 15 ALT 8 Alkaline Phosphatase 86 Total Protein 7.3 Albumin 4.2 Globulin 3.1 Albumin/Globulin Ratio 1.4 TSH 1.764 HCG, Qual Negative Urine Color Urine Appearance Urine pH Ur Specific Bussey Urine Protein Urine Glucose (UA) Urine Ketones Urine Blood Urine Nitrite Urine Bilirubin Urine Urobilinogen Ur Leukocyte Esterase Urine WBC (Auto) Urine RBC (Auto) U Hyaline Cast (Auto) U Epithel Cells (Auto) Urine Bacteria (Auto) Salicylates Urine Opiates Screen Ur Methadone, Qual Urine Fentanyl Screen Acetaminophen Urine Barbiturates Ur Phencyclidine (PCP) U Amphetamin/Meth Scrn MDMA (Ecstasy) Screen U Benzodiazepines Scrn Ur Cocaine Metabolite U Marijuana (THC) Screen Ethyl Alcohol mg/dL < 10.0 SARS-CoV-2, RNA, NAAT NEGATIVE Blood Parasites ID Cancelled 04/13/24 04/13/24 04/14/24 17:38 Unknown 12:20 WBC RBC Hgb Hct MCV MCH MCHC RDW Std Deviation RDW Coeff of Erika Plt Count MPV Immature Gran % (Auto) Neut % (Auto) Lymph % (Auto) Norton % (Auto) Eos % (Auto) Baso % (Auto) Neut # (Auto) Lymph # (Auto) Norton # (Auto) Eos # (Auto) Baso # (Auto) Immature Gran # (Auto) Absolute Nucleated RBC Nucleated RBC % (auto) Neutrophils % (Manual) Band Neutrophils % Lymphocytes % (Manual) Prolymphocyte % Reactive Lymphs % (Man) Monocytes % (Manual) Eosinophils % (Manual) Basophils % (Manual) Metamyelocytes % (Man) Myelocytes % (Man) Promyelocytes % (Man) Blast Cells % (Manual) Plasma Cell % (Manual) Other Cells % Nucleated RBC % Neutrophils # (Manual) Band Neutrophils # Total Absolute Neuts Lymphocytes # (Manual) Prolymphocyte # Reactive Lymphs # Total Abs Lymphocytes Monocytes # (Manual) Eosinophils # (Manual) Basophils # (Manual) Metamyelocytes # (Man) Myelocytes # (Manual) Promyelocytes # (Man) Blast Cells # (Man) Plasma Cell # (Manual) Other Cells # Nucleated RBCs # (Man) Hypersegmented Neuts Hyposegmented Neuts Hypogranular Neuts Large Granular Lymphs # Lrg Granular Lymphs Hairy Cells Smudge Cells Toxic Granulation Toxic Vacuolation Dohle Bodies Delmer Rods Platelet Estimate Hypogranular Platelets Giant Platelets Platelet Satelliting RBC Morphology Polychromasia Hypochromasia Poikilocytosis Basophilic Stippling Anisocytosis Microcytosis Macrocytosis Spherocytes Pappenheimer Bodies Sickle Cells Target Cells Tear Drop Cells Ovalocytes Stomatocytes [place] Bodies Echinocytes Acanthocytes (Spur) Rouleaux RBC Agglutinates Schistocytes Sezary Cell Sodium Potassium Chloride Carbon Dioxide Anion Gap BUN Creatinine Est Cr Clr Drug Dosing Est GFR ( Amer) Est GFR (Non-Af Amer) BUN/Creatinine Ratio Glucose Calcium Total Bilirubin AST ALT Alkaline Phosphatase Total Protein Albumin Globulin Albumin/Globulin Ratio TSH HCG, Qual Urine Color Yellow Urine Appearance Clear Urine pH 7.0 Ur Specific Bussey 1.011 Urine Protein Negative Urine Glucose (UA) Negative Urine Ketones Negative Urine Blood Negative Urine Nitrite Negative Urine Bilirubin Negative Urine Urobilinogen Negative Ur Leukocyte Esterase Trace H Urine WBC (Auto) 0-5 Urine RBC (Auto) 0-2 U Hyaline Cast (Auto) 0-2 U Epithel Cells (Auto) 3-5 H Urine Bacteria (Auto) None Seen Salicylates < 3.0 L Urine Opiates Screen Neg Ur Methadone, Qual Neg Urine Fentanyl Screen Neg Acetaminophen < 3 L Urine Barbiturates Neg Ur Phencyclidine (PCP) Neg U Amphetamin/Meth Scrn Neg MDMA (Ecstasy) Screen Neg U Benzodiazepines Scrn Neg Ur Cocaine Metabolite Neg U Marijuana (THC) Screen Neg Ethyl Alcohol mg/dL SARS-CoV-2, RNA, NAAT NEGATIVE Blood Parasites ID Hospital Course (1) ELIZABETH (generalized anxiety disorder): (2) Depression with suicidal ideation: (3) Trauma and stressor-related disorder: (4) Acute stress disorder: Plan 04/15/2024: Decided she would prefer to try trauma focused CBT/outpatient therapy before starting an SSRI as she is hopeful change in therapy focus may improve symptoms significantly. Feels safe and desires discharge today. 04/14/2024: The patient was admitted to the [facility] ([facility] mental health unit) on q15 min checks (behavioral with suicide precautions) for safety. The patient will participate in group, recreational, and milieu therapies and will be offered additional individual and family sessions as clinically appropriate. -consider initiation of SSRI -she would like to try to switch to in-person therapy Mental Health & Subst Abuse Tx Psychiatrist Date Of Appointment With Psychiatric Provider: n/a [facility]rap[facility] Date of Therapist Appointment: 30Sept Post Discharge Appointments Primary Care Physician Name Of Family Doctor/PCP: [facility] Date of Future Appointment with PCP: no Discharge Plan Discharge Items Patient Disposition: Home - Self-Care Reason For Visit: SUICIDAL IDEATIONS Discharge Diagnosis: Unspecified Depressive Disorder, Trauma and stressor-related disorder Activity: Resume your previous activity Non-emergency contact: Primary Care Provider and Therapist Call non-emergency contact if: you have any medication questions and your symptoms worsen Follow-up/Referrals: [facility] [Primary Care Provider] - Diet: Regular Addtl Attending Provider Instructions: Optional Mobile Apps we discussed: -Suicide safety plan -Virtual Hope Box -Headspace ($) -Restorative or gentle yoga videos on youtube SPECIAL CARE INSTRUCTIONS: 1. Follow through with your scheduled aftercare appointments. If unable to keep an appointment, please call to reschedule. 2. Take your medication only as prescribed. Medication should not be changed or stopped without the approval of your doctor. In the event of worsening symptoms or concerns about side effects, contact your doctor immediately. 3. Utilize new healthy coping skills, anger management skills, and stress management skills learned during your hospitalization. Journal feelings and process them with a support person. Identify stressors or situations that may result in relapse, deterioration or inappropriate behaviors and develop a plan to deal with those issues. 4. If your coping skills are ineffective and you are in crisis, contact your outpatient providers for direction. If unable to reach your providers, please call the [facility] CRISIS LINE AT , go to the [facility] walk-in center at [address] [place] [address] [facility], or go to the closest Emergency Room. 5. Avoid alcohol and un-prescribed drugs. 6. You have been provided with the Mental Health Advance Directives Pamphlet for your review. 7. Your condition is stable for discharge to outpatient level of care, but recovery is an ongoing process. Ifthoughts to harm yourself or others return, follow the safety plan developed during your stay. Planning for a safe return home includes securing weapons. Our treatment team recommends weaponsbe removed from the home until your outpatient provider reassesses your progress. In rare cases where the items themselvescannot be removed, guns and ammunitionshould be secured separatelyand keys stored by a reliable personoutside of the home. If you were admitted on an involuntary commitment, the police or other legal authorities may be involved in this process. AFTERCARE APPOINTMENTS: * Please call your insurance company prior to your scheduled appointment to confirm your aftercare providers are covered. Take your insurance information to your appointments. WHO TO CALL AND WHEN: Medical Emergencies: For questions or emergencies related to your hospital stay, please contact the Inpatient Behavioral Health Unit at [phone]. A rod buster helper is on-call 07/02 for the Behavioral Health Unit for emergencies At any time you feel your situation is an emergency, you may also call 911 immediately. National Crisis Line: 988 Pending Studies at Discharge: No Stand-Alone Forms: My [facility] Medications and DC Order Prescriptions: New hydroxyzine HCl 25 mg Tablet 25 mg PO DAILY PRN (Reason: anxiety/insomnia) 30 Days Qty: 30 0RF Continued Midol 500-25 mg tablet 2 tab PO Q6H PRN folic acid 1 mg Tablet 1 mg PO DAILY ergocalciferol (vitamin D2) [Vitamin D2] 1,250 mcg (50,000 unit) Capsule 1,250 mcg PO WK Rx Instructions: FRIDAYS methotrexate (PF) 15 mg/0.3 mL Auto-Injector 15 mg SUBCUT WK Hold Instructions: Until pcp follow up Rx Instructions: Patient currently holding medication per PCP instruction. Doesn't have a resume date. Original Directions: 15mg injected weekly on fridays. Discharge Orders: Discharge Order (Routine); Ordered 04/15/24 Ordered By: Celina Kaiser Admission Data Admit Date/Time: 04/13/24 16:34 Attending Provider: Celina Kaiser Admit Provider: Shakeel Stafford Primary Care Provider: [facility] [place] Other Providers: Shakeel Stafford Other Interventions: Discharge Summary Assessment (RN) Last Done: 04/15/24 11:41 Coding Level of Care Code 71246 D/C day mgmt > 30 min Diagnoses ELIZABETH (generalized anxiety disorder) F41.1 Depression with suicidal ideation F32.A; R45.851 Trauma and stressor-related disorder F43.9 Acute stress disorder F43.0
== END 2024-04-15 13:45 | disposition home or self-care (01) | DRG 881 ==
LOC: ED 12:53 → SUATTDRO 16:34 → 3S 16:34 → ED 16:44